=== PATIENT | male | born 1950 | race Caucasian/White ===

== ENCOUNTER 2016-11-02 14:10 | Inpatient (IN) | payer OTHER ==
[~2016-11-02] VITALS: Ht 175.3 cm; Wt 100.7 kg
[~2016-11-02 14:10] MED LIST: ASPEC325 PO; BUPR-79 PO; CLB200 PO; CYM/30 PO; LISI10TA PO; OMEP20CA9 PO; OXYSR10 PO; RXC5 PO; ZOLP10TA PO
--- NOTE | 2016-11-02 16:42 | DIAGNOSTIC IMAGING REPORT ---
CHEST ONE VIEW PORTABLE CLINICAL HISTORY: CHEST PAIN dyspnea COMPARISON STUDY: 04/20/2015 FINDINGS: The bones soft tissues and hemidiaphragms are normal. The cardiomediastinal silhouette is normal. The lungs are clear. The pulmonary vasculature is normal. IMPRESSION: Negative chest. Electronically signed by: Hema Melendrez M.D. 11/02/2016 4:41 PM Dictated Date/Time: 11/02/2016 4:41 PM
[2016-11-02 16:43] LABS: MEAN CELL VOLUME 96.6 fL (80-100); MEAN CORPUSCULAR HEMOGLOBIN 33.4 pg (25-34); MEAN CORPUSCULAR HGB CONC 34.6 g/dl (32-36); MEAN PLATELET VOLUME 9.3 fL (7.4-10.4); PLATELET COUNT 318 K/uL (130-400); RED BLOOD COUNT 3.83 M/uL (4.7-6.1); WHITE BLOOD COUNT 11.97 K/uL (4.8-10.8)
[2016-11-02 16:51] LABS: PARTIAL THROMBOPLASTIN RATIO 1.1; PROTHROMBIN TIME (PATIENT) 10.5 SECONDS (9.0-12.0)
[2016-11-02] MEDS ORDERED: LISI40TA PO (16:51)
[2016-11-02] MEDS ORDERED: CYM60 PO (16:51)
[2016-11-02] MEDS ORDERED: TPRSR/100 PO (16:51)
[2016-11-02] MEDS ORDERED: FERR1TAB13 PO (16:51)
[2016-11-02] MEDS ORDERED: ULT50 PO (16:51)
[2016-11-02] MEDS ORDERED: ASPI325T39 PO (16:51)
[2016-11-02 17:09] LABS: ALT/SGPT 32 U/L (12-78); AST/SGOT 20 U/L (15-37); BLOOD UREA NITROGEN 41 mg/dl (7-18); BUN/CREATININE RATIO 19.7 (10-20); CALCIUM 8.8 mg/dl (8.5-10.1); CARBON DIOXIDE 24 mmol/L (21-32); CHLORIDE 101 mmol/L (98-107); GLUCOSE 108 mg/dl (70-99); POTASSIUM 4.3 mmol/L (3.5-5.1); SODIUM 134 mmol/L (136-145)
--- NOTE | 2016-11-02 17:10 | EMERGENCY ROOM VISIT NOTE ---
History Report prepared by Miriam: Alize Gray Under the Supervision of: Dr. Amira Jones M.D. First contact with patient: 16:40 Chief Complaint: CHEST PAIN Stated Complaint: CHEST PAINS, DIFF. BREATHING, NAUSEA, RT SHOULDER Nursing Triage Summary: Pt reports midsternal CP intermittenly for 2 months "I have been to my PCP and have had every single test possible and they can't find anything" +SOB Pt also reports left thumb, left knee, and left neck pain Pt reports bronchitis last week History of Present Illness The patient is a 66 year old male who presents to the Emergency Room with complaints of persistent shortness of breath over the past month. He currently rates his discomfort as a 4/10 in severity. The patient states that he has been evaluated for his symptoms at [facility], reporting normal EKGs, cardiograms , and stress tests. The patient states that over the past month he has had difficulty walking up stairs and small exertion. He states that this morning he noticed left sided neck pain that now is around his entire neck. The patient reports chest pain this morning, but denies any current pain. He states that he took 1- 324 mg aspirin today. The patient denies any history of smoking. He reports a history of hypertension. The patient denies any history of diabetes, hyperlipidemia, heart disease, or a previous heart catheterization. Source of History: patient Onset: psat month Position: other (global) Symptom Intensity: 4/10 Quality: other (shortness of breath) Timing: other (persistent) Associated Symptoms: + neck pain, + chest pain Review of Systems See HPI for pertinent positives & negatives. A total of 10 systems reviewed and were otherwise negative. Past Medical & Surgical Medical Problems: (1) Elevated troponin (2) Hypertension (3) Kidney stone (4) Right knee DJD (5) Shortness of breath Family History Gallbladder disease Heart disease Hypertension Kidney disease Kidney stones Lung disease Social History Smoking Status: Never Smoker Smokeless Tobacco Use: No Alcohol Use: occasionally Marital Status: Housing Status: lives with significant other Occupation Status: disabled Current/Historical Medications Scheduled Aspirin (Aspirin Ec), 325 MG PO DAILY Bupropion (Wellbutrin Sr), 150 MG PO QAM Duloxetine HCl (Duloxetine HCl), 60 MG PO DAILY Ferrous Sulfate (Kp Ferrous Sulfate), 325 MG PO DAILY Lisinopril (Zestril), 40 MG PO DAILY Metoprolol Succinate (Metoprolol Succinate ER), 100 MG PO DAILY Omeprazole (Prilosec), 20 MG PO DAILY Zolpidem Tartrate (Ambien), 10 MG PO HS Scheduled PRN Tramadol HCl (Tramadol HCl), 100 MG PO BID PRN for Pain Allergies Coded Allergies: No Known Allergies (Unverified , 11/02/16) Physical Exam Vital Signs Date Time Temp Pulse Resp B/P (MAP) Pulse Ox O2 Delivery O2 Flow Rate FiO2 11/02/16 19:45 83 16 113/71 96 Room Air 11/02/16 18:45 37.2 96 18 116/74 98 Room Air 11/02/16 16:44 86 11/02/16 16:38 98 Room Air 11/02/16 16:04 107 16 89/59 96 Room Air 11/02/16 14:19 37.8 92 20 149/77 97 Room Air Physical Exam Vital signs reviewed. General: Well-appearing male, in no significant distress. HEENT: No scleral icterus, PERRLA, neck supple. Atraumatic. Cardiovascular: Regular rate and rhythm, no extra sounds. Pulmonary: Clear to auscultation bilaterally, normal work of breathing. Abdomen: Soft, nontender, nondistended, positive bowel sounds. Musculoskeletal: Atraumatic, no peripheral edema. Neurologic: Patient awake alert and oriented x 3, full strength in all 4 extremities. Cranial nerves 2 through 12 grossly intact. Skin: Warm, dry, no rash Medical Decision & Procedures ER Provider Diagnostic Interpretation: X-ray results as stated below per interpretation by me and the radiologist: CHEST ONE VIEW PORTABLE CLINICAL HISTORY: CHEST PAIN dyspnea COMPARISON STUDY: 04/20/2015 FINDINGS: The bones soft tissues and hemidiaphragms are normal. The cardiomediastinal silhouette is normal. The lungs are clear. The pulmonary vasculature is normal. IMPRESSION: Negative chest. Electronically signed by: Hema Melendrez M.D. 11/02/2016 4:41 PM Dictated Date/Time: 11/02/2016 4:41 PM C-SPINE ROUTINE 4 OR 5 VIEWS CLINICAL HISTORY: Cervical radiculopathy COMPARISON STUDY: No previous studies for comparison. FINDINGS: These images demonstrate a C6 corpectomy and C5-C7 anterior fusion. Alignment is anatomic. No acute fracture or suspicious lesion is identified by radiography. There is moderate disc space narrowing with osteophytosis at C4-C5. There is moderate multilevel facet arthrosis. Prevertebral soft tissues are unremarkable. IMPRESSION: 1. No acute fracture. 2. Status post C6 corpectomy and C5-C7 anterior fusion. 3. Moderate disc space narrowing at C4-C5 with moderate multilevel facet arthrosis. Electronically signed by: Noel Mir M.D. 11/02/2016 9:37 PM Dictated Date/Time: 11/02/2016 6:09 PM Laboratory Results Test 11/02/16 16:30 11/02/16 16:42 D-Dimer 730 ug/L FEU (0-500) Total Bilirubin 0.7 mg/dl (0.2-1) Aspartate Amino Transf (AST/SGOT) 20 U/L (15-37) Alanine Aminotransferase (ALT/SGPT) 32 U/L (12-78) Alkaline Phosphatase 104 U/L (45-117) Total Protein 8.0 gm/dl (6.4-8.2) Albumin 3.9 gm/dl (3.4-5.0) Globulin 4.1 gm/dl (2.5-4.0) Albumin/Globulin Ratio 1.0 (0.9-2) Lyme Disease IgG Antibody NEG (NEG) Lyme Disease IgM Antibody NEG (NEG) Bedside Troponin I 0.220 ng/ml (0-0.045) Laboratory results per my review. Medications Administered Medications (Trade) Dose Ordered Sig/Jamie Route Start Time Stop Time Status Last Admin Dose Admin Nitroglycerin (Nitrostat Tab) 0.4 mg Q5M PRN SL 11/02/16 17:15 11/03/16 11:30 DC 11/02/16 18:54 0.4 MG Sodium Chloride 250 ml @ 999 mls/hr Q16M STAT IV 11/02/16 18:20 11/02/16 18:35 DC 11/02/16 18:20 999 MLS/HR Sodium Chloride 1,000 ml @ 125 mls/hr Q8H STAT IV 11/02/16 18:20 11/02/16 21:57 DC 11/02/16 18:54 125 MLS/HR Heparin Sodium (Porcine) (Heparin Iv Bolus) 4,000 unit NOW STAT IV 11/02/16 18:38 11/02/16 18:39 DC 11/02/16 19:23 4,000 UNIT Heparin Sodium/ Dextrose 500 ml @ 20 mls/hr Q24H PRN IV 11/02/16 18:45 11/02/16 21:57 DC 11/02/16 19:25 20 MLS/HR Tramadol HCl (Ultram Tab) 100 mg BID PRN PO 11/02/16 20:15 12/02/16 20:14 11/02/16 22:07 100 MG Acetaminophen 100 ml @ 400 mls/hr Q8H PRN IV 11/02/16 20:15 12/02/16 20:14 11/04/16 17:43 400 MLS/HR ECG Indication: chest pain, SOB/dyspnea Rate (beats per minute): 94 Rhythm: normal sinus Findings: no acute ischemic change, no ectopy ED Course 1657: Past medical records reviewed. The patient was evaluated in room C5. A complete history and physical examination was performed. 171: Ordered Nitroglycerin 0.4 mg SL. 1819: Ordered Heparin Sodium Dextrose 1 ea NA, Sodium Chloride 1000 ml @ 125 mls /hr IV, Sodium Chloride 250 ml @ 999 mls/hr IV. 1838: Ordered heparin IV Bolus 4000 unit IV. 1845: I reevaluated the patient and he is doing well. I discussed the exam findings with him and I discussed the treatment plan. He verbalized complete understanding and agreement. He is going to be evaluated for further treatment. Ordered Heparin Sodium/Dextrose 500 ml @ 20 mls/hr IV. 1945: I discussed the patients case with Dr. Rios [facility]. He is going to evaluate the patient for further treatment. Medical Decision Differential diagnoses includes acute coronary syndrome, pulmonary embolus, aortic dissection, musculoskeletal pain, pneumonia, pleural effusion, pneumothorax, gastritis, peptic ulcer disease. Medication Reconciliation: I attest that I have personally reviewed the patient' s current medication list. Blood Pressure Screening: Patient was found to have normal blood pressure on screening and does not require follow-up. This patient was evaluated and appeared to be in no significant distress. IV access was obtained and laboratory work was drawn. The patient was given a nitroglycerin trial for his continued mild discomfort. He had taken aspirin 325 mg. Chest x-ray was obtained and reveals no significant pathology. Cervical spine x-ray reveals degenerative and postsurgical changes. Patient's laboratory work indicates an elevated troponin of 0.22. He does have risk factors for coronary disease. The patient will be evaluated by the hospitalist service. He was placed on a heparin drip. He will return to the ER for worsening of symptoms or any medical concerns. Consults Time Called: 1834 Consulting Physician: ROSE Gutierrez Returned Call: 1945 I discussed the patients case with ROSE Gutierrez. He is going to evaluate the patient for further treatment. Impression Primary Impression: Acute coronary syndrome Scribe Attestation The scribe's documentation has been prepared under my direction and personally reviewed by me in its entirety. I confirm that the note above accurately reflects all work, treatment, procedures, and medical decision making performed by me. Departure Information Dispostion Being Evaluated By Hospitalist Referrals Jerrica Nguyen PA-C (PCP)
[2016-11-02 17:14] LABS: ALKALINE PHOSPHATASE 104 U/L (45-117); CKMB/CK RATIO 1.1 (0-3.0)
[2016-11-02] MEDS ORDERED: NITROGLYCERIN 0.4 MG SL PER TAB CHARGE SL PRN (17:15)
[2016-11-02] MEDS ORDERED: SODIUM CHLORIDE 0.9% 1000ML 1,000 ML IV STA (18:20)
[2016-11-02] MEDS ORDERED: SODIUM CHLORIDE 0.9% 250ML 250 ML IV STA (18:20)
[2016-11-02] MEDS ORDERED: HEPARIN SOD (PORCINE) 1000 UNIT/ML 10 ML VIAL IV STA (18:38)
[2016-11-02] MEDS ORDERED: HEPARIN 25,000 UNIT/500ML D5W 500 ML IV PRN (18:45)
[2016-11-02] MEDS ORDERED: ONDANSETRON INJ 2 MG/ML 2 ML VIAL IV PRN (20:15)
[2016-11-02] MEDS ORDERED: ACETAMINOPHEN 325 MG TAB PO PRN (20:15)
[2016-11-02] MEDS ORDERED: ZOLPIDEM TARTRATE 5 MG TAB PO PRN (20:15)
[2016-11-02 21:03] LABS: LYME DISEASE AB IGG NEG (NEG); LYME DISEASE AB IGM NEG (NEG)
--- NOTE | 2016-11-02 21:14 | DIAGNOSTIC IMAGING REPORT ---
SINUS CT WITHOUT CONTRAST CLINICAL HISTORY: Difficulty breathing. Include left mastoids. COMPARISON STUDY: None. Technique: Helical axial images of the sinuses were obtained without IV contrast. Coronal reformats were viewed. CT DOSE: 593.39 mGy.cm FINDINGS: Visualized portions of the intracranial contents are unremarkable on this unenhanced exam. Orbits are within normal limits. Mastoid air cells are clear. There is mild leftward deviation of the nasal septum with spur formation. There is no mass or bony destruction within the sinuses or the nasal cavity. The major drainage pathways of the sinuses are clear. There are no air-fluid levels. The sinuses are essentially clear with minimal ethmoid sinus mucosal thickening. There is no fluid within the middle ears. Ossicles are intact. IMPRESSION: 1. Clear sinuses with patent major drainage pathways. 2. No significant fluid within mastoid air cells. Electronically signed by: Noel Mir M.D. 11/02/2016 9:13 PM Dictated Date/Time: 11/02/2016 9:09 PM
--- NOTE | 2016-11-02 21:38 | DIAGNOSTIC IMAGING REPORT ---
C-SPINE ROUTINE 4 OR 5 VIEWS CLINICAL HISTORY: Cervical radiculopathy COMPARISON STUDY: No previous studies for comparison. FINDINGS: These images demonstrate a C6 corpectomy and C5-C7 anterior fusion. Alignment is anatomic. No acute fracture or suspicious lesion is identified by radiography. There is moderate disc space narrowing with osteophytosis at C4-C5. There is moderate multilevel facet arthrosis. Prevertebral soft tissues are unremarkable. IMPRESSION: 1. No acute fracture. 2. Status post C6 corpectomy and C5-C7 anterior fusion. 3. Moderate disc space narrowing at C4-C5 with moderate multilevel facet arthrosis. Electronically signed by: Noel Mir M.D. 11/02/2016 9:37 PM Dictated Date/Time: 11/02/2016 6:09 PM
--- NOTE | 2016-11-02 21:54 | DIAGNOSTIC IMAGING REPORT ---
BILATERAL LOWER EXTREMITY VENOUS DOPPLER CLINICAL HISTORY: Chest pain and difficulty breathing. Evaluate for deep venous thrombosis. COMPARISON STUDY: No previous studies for comparison. TECHNIQUE: Sonography of the deep venous system of the bilateral lower extremities was performed. Compression and augmentation were evaluated. FINDINGS: The bilateral common femoral, superficial femoral and popliteal veins were compressible. Augmentation was normal. Flow was shown within the deep calf vessels. There was a 4.8 x 2.2 x 1.9 cm mildly complex left popliteal cyst. IMPRESSION: 1. No evidence of deep venous thrombus within the bilateral lower extremities. 2. 4.8 x 2.2 x 1.9 cm left popliteal cyst. Electronically signed by: Noel Mir M.D. 11/02/2016 9:53 PM Dictated Date/Time: 11/02/2016 9:50 PM
[2016-11-02] MEDS: TRAMADOL HCL 50 MG TAB PO PRN (22:07)
[2016-11-02 22:20] VITALS: BP 131/76; PULSE 88; TEMP 37; O2SAT 96; Ht 175.3 cm; Wt 100.7 kg
[2016-11-02 23:02] LABS: CKMB/CK RATIO 0.7 (0-3.0)
[2016-11-02 23:36] VITALS: BP 108/69; PULSE 84; TEMP 37.3; O2SAT 95
[2016-11-02] MEDS: ZOLPIDEM TARTRATE 10 MG TAB PO SCH (23:44)
[2016-11-02] MEDS: ACETAMINOPHEN IV 100 ML IV PRN (23:45)
[2016-11-03] VITALS (8 sets, daily range): BP systolic 86–119; BP diastolic 49–72; PULSE 74–78; TEMP 36.5–36.8; O2SAT 95–98
[2016-11-03] MEDS: SODIUM CHLORIDE 0.9% 1000ML 1,000 ML IV SCH ×3 (01:22→18:40)
[2016-11-03 01:54] LABS: PARTIAL THROMBOPLASTIN RATIO 1.2
[2016-11-03 04:09] LABS: BASO % 0.3 %; BASO ABS # 0.02 K/uL (0-0.2); COMPLETE YES; EOS % 1.5 %; HEMATOCRIT 31.6 % (42-52); IG% 0.3 %; LYMPH % 22.4 %; MEAN CELL VOLUME 96.9 fL (80-100); MEAN CORPUSCULAR HEMOGLOBIN 32.8 pg (25-34); MEAN CORPUSCULAR HGB CONC 33.9 g/dl (32-36); MEAN PLATELET VOLUME 8.8 fL (7.4-10.4); MONO % 13.9 %; NEUT % 61.6 %; PLATELET COUNT 202 K/uL (130-400); RED BLOOD COUNT 3.26 M/uL (4.7-6.1); WHITE BLOOD COUNT 6.71 K/uL (4.8-10.8)
[2016-11-03 04:21] LABS: PARTIAL THROMBOPLASTIN RATIO 1.2; PROTHROMBIN TIME (PATIENT) 10.9 SECONDS (9.0-12.0)
[2016-11-03 04:27] LABS: BLOOD UREA NITROGEN 35 mg/dl (7-18); BUN/CREATININE RATIO 23.3 (10-20); CARBON DIOXIDE 23 mmol/L (21-32); CHLORIDE 107 mmol/L (98-107); GLUCOSE 98 mg/dl (70-99); MAGNESIUM 2.5 mg/dl (1.8-2.4); SODIUM 139 mmol/L (136-145)
--- NOTE | 2016-11-03 04:44 | History and Physical ---
History & Physical Date & Time of Service: Nov 03, 2016 at 04:32. The patient was examined on 11/02/2016 Chief Complaint: Elevated Troponin, Sob Primary Care Physician: Jerrica Nguyen PA-C History of Present Illness Source: patient The patient is a 66-year-old male who presented to the emergency department with persistent shortness of breath over the previous month, to the point he has difficulty walking up stairs. When he awoke this morning, he noted left- sided neck pain and pain into his left thumb. He has not had any unusual physical stresses to explain the symptoms. He is generally fatigued. Past Medical/Surgical History Medical Problems: (1) Hypertension Status: Chronic (2) Kidney stone Status: Resolved Family History Gallbladder disease Heart disease Hypertension Kidney disease Kidney stones Lung disease Social History Smoking Status: Never Smoker Smokeless Tobacco Use: No Alcohol Use: none Drug Use: none Marital Status: Housing status: lives with family Occupational Status: disabled Multi-Drug Resistant Organisms History of MDRO: No Allergies Coded Allergies: No Known Allergies (Unverified , 11/02/16) Home Medications Scheduled Aspirin (Aspirin Ec), 325 MG PO DAILY Bupropion (Wellbutrin Sr), 150 MG PO QAM Duloxetine HCl (Duloxetine HCl), 60 MG PO DAILY Ferrous Sulfate (Kp Ferrous Sulfate), 325 MG PO DAILY Lisinopril (Zestril), 40 MG PO DAILY Metoprolol Succinate (Metoprolol Succinate ER), 100 MG PO DAILY Omeprazole (Prilosec), 20 MG PO DAILY Zolpidem Tartrate (Ambien), 10 MG PO HS Scheduled PRN Tramadol HCl (Tramadol HCl), 100 MG PO BID PRN for Pain Review of Systems The patient denies chest pain, palpitations, cough, lower extremity swelling, sore throat, fevers, chills, sweats, weight change, nausea, vomiting, abdominal pain, pelvic pain, blood in urine or stool, dysuria, urinary frequency or urgency, lightheadedness, dizziness, headache, memory loss, rash, abnormal bruising or bleeding, imbalance, focal weakness, numbness or tingling in legs, night sweats, or allergy symptoms. The review of systems is otherwise negative other than for that already noted above, and at least 10 systems have been reviewed. Physical Exam Vital Signs Date Time Temp Pulse Resp B/P (MAP) Pulse Ox O2 Delivery O2 Flow Rate FiO2 11/03/16 04:00 36.5 74 18 94/60 (71) 98 Room Air 11/03/16 00:00 95 Room Air 11/02/16 23:36 37.3 84 18 108/69 (82) 95 Room Air 11/02/16 22:20 37.0 88 20 131/76 96 Room Air 11/02/16 20:56 76 18 120/67 98 11/02/16 19:45 83 16 113/71 96 Room Air 11/02/16 18:45 37.2 96 18 116/74 98 Room Air 11/02/16 16:44 86 11/02/16 16:38 98 Room Air 11/02/16 16:04 107 16 89/59 96 Room Air 11/02/16 14:19 37.8 92 20 149/77 97 Room Air The patient is awake, well-developed and adequately nourished, alert and oriented 3, normocephalic and atraumatic, lying in bed and in no acute distress unless he turns his head to the left. HEENT--PERRL, EOMI, mucous membranes and oropharynx normal. Neck--reproducible pain over left mastoid and posterior cervical, no JVD or bruits, thyroid normal, trachea midline, no adenopathy. Heart--normal S1 and S2, no extra beats, no murmurs, rubs or gallops. Lungs--clear bilaterally but diminished throughout, no respiratory distress, no accessory muscle use. Abdomen--normal bowel sounds and soft, nontender and nondistended, no hernias or masses, no organomegaly. Extremities--no cyanosis, clubbing or edema. There are good distal pulses b/l. Dermatologic--normal skin turgor, normal color, warm and dry, no abnormal lymph nodes, no rash. Neurologic--cranial nerves II through XII grossly intact, motor and sensory examination normal. Rheumatologic--normal range of motion, nontender, muscles and joints. Psychiatric--normal affect. Diagnostics Laboratory Results Results Past 24 Hours Test 11/02/16 16:30 11/02/16 16:42 11/02/16 22:30 11/03/16 01:29 Range/Units White Blood Count 11.97 4.8-10.8 K/uL Red Blood Count 3.83 4.7-6.1 M/uL Hemoglobin 12.8 14.0-18.0 g/dL Hematocrit 37.0 42-52 % Mean Corpuscular Volume 96.6 80-100 fL Mean Corpuscular Hemoglobin 33.4 25-34 pg Mean Corpuscular Hemoglobin Concent 34.6 32-36 g/dl RDW Standard Deviation 45.1 36.4-46.3 fL RDW Coefficient of Variation 13.0 11.5-14.5 % Platelet Count 318 130-400 K/uL Mean Platelet Volume 9.3 7.4-10.4 fL Prothrombin Time 10.5 9.0-12.0 SECONDS Prothromb Time International Ratio 1.0 0.9-1.1 Activated Partial Thromboplast Time 28.2 30.3 21.0-31.0 SECONDS Partial Thromboplastin Ratio 1.1 1.2 D-Dimer 730 0-500 ug/L FEU Sodium Level 134 136-145 mmol/L Potassium Level 4.3 3.5-5.1 mmol/L Chloride Level 101 98-107 mmol/L Carbon Dioxide Level 24 21-32 mmol/L Anion Gap 9.0 3-11 mmol/L Blood Urea Nitrogen 41 7-18 mg/dl Creatinine 2.10 0.60-1.40 mg/dl Estimated GFR () 37.4 Estimated GFR (Non- 32.3 BUN/Creatinine Ratio 19.7 10-20 Random Glucose 108 70-99 mg/dl Calcium Level 8.8 8.5-10.1 mg/dl Total Bilirubin 0.7 0.2-1 mg/dl Aspartate Amino Transf (AST/SGOT) 20 15-37 U/L Alanine Aminotransferase (ALT/SGPT) 32 12-78 U/L Alkaline Phosphatase 104 45-117 U/L Total Creatine Kinase 95 82 39-308 U/L Creatine Kinase MB 1.0 0.6 0.5-3.6 ng/ml Creatine Kinase MB Ratio 1.1 0.7 0-3.0 Total Protein 8.0 6.4-8.2 gm/dl Albumin 3.9 3.4-5.0 gm/dl Globulin 4.1 2.5-4.0 gm/dl Albumin/Globulin Ratio 1.0 0.9-2 Lyme Disease IgG Antibody NEG NEG Lyme Disease IgM Antibody NEG NEG Bedside Troponin I 0.220 0-0.045 ng/ml Troponin I < 0.015 0-0.045 ng/ml Hepatitis C Antibody Screen NEG NEG Test 11/03/16 04:00 Range/Units White Blood Count 6.71 4.8-10.8 K/uL Red Blood Count 3.26 4.7-6.1 M/uL Hemoglobin 10.7 14.0-18.0 g/dL Hematocrit 31.6 42-52 % Mean Corpuscular Volume 96.9 80-100 fL Mean Corpuscular Hemoglobin 32.8 25-34 pg Mean Corpuscular Hemoglobin Concent 33.9 32-36 g/dl Platelet Count 202 130-400 K/uL Mean Platelet Volume 8.8 7.4-10.4 fL Neutrophils (%) (Auto) 61.6 % Lymphocytes (%) (Auto) 22.4 % Monocytes (%) (Auto) 13.9 % Eosinophils (%) (Auto) 1.5 % Basophils (%) (Auto) 0.3 % Neutrophils # (Auto) 4.14 1.4-6.5 K/uL Lymphocytes # (Auto) 1.50 1.2-3.4 K/uL Monocytes # (Auto) 0.93 0.11-0.59 K/uL Eosinophils # (Auto) 0.10 0-0.5 K/uL Basophils # (Auto) 0.02 0-0.2 K/uL RDW Standard Deviation 45.4 36.4-46.3 fL RDW Coefficient of Variation 13.0 11.5-14.5 % Immature Granulocyte % (Auto) 0.3 % Immature Granulocyte # (Auto) 0.02 0.00-0.02 K/uL Prothrombin Time 10.9 9.0-12.0 SECONDS Prothromb Time International Ratio 1.0 0.9-1.1 Activated Partial Thromboplast Time 30.8 21.0-31.0 SECONDS Partial Thromboplastin Ratio 1.2 Sodium Level 139 136-145 mmol/L Potassium Level 4.0 3.5-5.1 mmol/L Chloride Level 107 98-107 mmol/L Carbon Dioxide Level 23 21-32 mmol/L Anion Gap 9.0 3-11 mmol/L Blood Urea Nitrogen 35 7-18 mg/dl Creatinine 1.50 0.60-1.40 mg/dl Est Creatinine Clear Calc Drug Dose 57.5 ml/min Estimated GFR () 56.2 Estimated GFR (Non- 48.5 BUN/Creatinine Ratio 23.3 10-20 Random Glucose 98 70-99 mg/dl Calcium Level 8.1 8.5-10.1 mg/dl Magnesium Level 2.5 1.8-2.4 mg/dl Total Creatine Kinase 60 39-308 U/L Creatine Kinase MB 0.6 0.5-3.6 ng/ml Creatine Kinase MB Ratio 1.0 0-3.0 Troponin I < 0.015 0-0.045 ng/ml Diagnostic Radiology Patient Name: CHRISSIE BARROSO Unit Number: [id number] Dictated: 11/02/161640 Transcribed: 11/02/161640 MS Printed Date/Time: [~ rep prt dt]/[~ rep prt tm] [~ rep ct labl] - [~ rep ct ivnm] [facility] [place] [place] [address] Dictated: 11/02/161640 Transcribed: 11/02/161640 MS Printed Date/Time: [~ rep prt dt]/[~ rep prt tm] [~ rep ct labl] - [~ rep ct ivnm] CHEST ONE VIEW PORTABLE CLINICAL HISTORY: CHEST PAIN dyspnea COMPARISON STUDY: 04/20/2015 FINDINGS: The bones soft tissues and hemidiaphragms are normal. The cardiomediastinal silhouette is normal. The lungs are clear. The pulmonary vasculature is normal. IMPRESSION: Negative chest. Electronically signed by: Hema Melendrez M.D. 11/02/2016 4:41 PM Dictated Date/Time: 11/02/2016 4:41 PM The status of this report is Signed. Draft = Not yet reviewed or approved by Radiologist. Signed = Reviewed and approved by Radiologist. <AttendingPhy></AttendingPhy> <FamilyPhy>Jerrica Nguyen PA-C</FamilyPhy> < PrimaryPhy>Jerrica Nguyen PA-C</PrimaryPhy> <UnitNumber>[id number]</UnitNumber> < VisitNumber>[id number]</VisitNumber> <PatientName>CHRISSIE BARROSO</PatientName> <DateOfBirth>1950</DateOfBirth> <Location>C.EDC</Location> <ServiceDate></ServiceDate> <MNE>ESINDI</MNE> <OrderingPhy>ED, PROTOCOL</OrderingPhy> < OrderingPhyMNE>f rep ord dr gould</OrderingPhyMNE> <DictatingPhyMNE>f rep dict dr gould</DictatingPhyMNE> <CCListMNE>f rep ct mne</CCListMNE> <AdmittingPhyMNE>f pt admit dr gould</AdmittingPhyMNE> <AttendingPhyMNE>f pt attend dr gould</ AttendingPhyMNE> <ConsultingPhyMNE>f pt consult dr gould</ConsultingPhyMNE> <FamilyPhyMNE>f pt fam dr gould</FamilyPhyMNE> <OtherPhyMNE>f pt other dr gould</OtherPhyMNE> < PrimaryPhyMNE>f pt prim care dr gould</PrimaryPhyMNE> <ReferringPhyMNE>f pt referring dr gould</ReferringPhyMNE> Patient Name: CHRISSIE BARROSO Unit Number: [id number] Dictated: 11/02/161808 Transcribed: 11/02/161811 Printed Date/Time: [~ rep prt dt]/[~ rep prt tm] [~ rep ct labl] - [~ rep ct ivnm] [facility] [place] [place] [address] Dictated: 11/02/161808 Transcribed: 11/02/161811 Printed Date/Time: [~ rep prt dt]/[~ rep prt tm] [~ rep ct labl] - [~ rep ct ivnm] [~ rep ct add3]] C-SPINE ROUTINE 4 OR 5 VIEWS CLINICAL HISTORY: Cervical radiculopathy COMPARISON STUDY: No previous studies for comparison. FINDINGS: These images demonstrate a C6 corpectomy and C5-C7 anterior fusion. Alignment is anatomic. No acute fracture or suspicious lesion is identified by radiography. There is moderate disc space narrowing with osteophytosis at C4-C5. There is moderate multilevel facet arthrosis. Prevertebral soft tissues are unremarkable. IMPRESSION: 1. No acute fracture. 2. Status post C6 corpectomy and C5-C7 anterior fusion. 3. Moderate disc space narrowing at C4-C5 with moderate multilevel facet arthrosis. Electronically signed by: Noel Mir M.D. 11/02/2016 9:37 PM Dictated Date/Time: 11/02/2016 6:09 PM The status of this report is Signed. Draft = Not yet reviewed or approved by Radiologist. Signed = Reviewed and approved by Radiologist. <AttendingPhy></AttendingPhy> <FamilyPhy>Jerrica Nguyen PA-C</FamilyPhy> < PrimaryPhy>Jerrica Nguyen PA-C</PrimaryPhy> <UnitNumber>[id number]</UnitNumber> < VisitNumber>[id number]</VisitNumber> <PatientName>CHRISSIE BARROSO</PatientName> <DateOfBirth>1950</DateOfBirth> <Location>C.EDC</Location> <ServiceDate></ServiceDate> <MNE>ESINDI</MNE> <OrderingPhy>Amira Jones M.D.</ OrderingPhy> <OrderingPhyMNE>f rep ord dr gould</OrderingPhyMNE> <DictatingPhyMNE> f rep dict dr gould</DictatingPhyMNE> <CCListMNE>f rep ct mne</CCListMNE> < AdmittingPhyMNE>f pt admit dr gould</AdmittingPhyMNE> <AttendingPhyMNE>f pt attend dr gould</AttendingPhyMNE> <ConsultingPhyMNE>f pt consult dr gould</ConsultingPhyMNE> <FamilyPhyMNE>f pt fam dr gould</FamilyPhyMNE> <OtherPhyMNE>f pt other dr gould</OtherPhyMNE> < PrimaryPhyMNE>f pt prim care dr gould</PrimaryPhyMNE> <ReferringPhyMNE>f pt referring dr gould</ReferringPhyMNE> Patient Name: CHRISSIE BARROSO Unit Number: [id number] Dictated: 11/02/162149 Transcribed: 11/02/162149 JA Printed Date/Time: [~ rep prt dt]/[~ rep prt tm] [~ rep ct labl] - [~ rep ct ivnm] [facility] [place] [address] Dictated: 11/02/162149 Transcribed: 11/02/162149 Printed Date/Time: [~ rep prt dt]/[~ rep prt tm] [~ rep ct labl] - [~ rep ct ivnm] [~ rep ct add3]] BILATERAL LOWER EXTREMITY VENOUS DOPPLER CLINICAL HISTORY: Chest pain and difficulty breathing. Evaluate for deep venous thrombosis. COMPARISON STUDY: No previous studies for comparison. TECHNIQUE: Sonography of the deep venous system of the bilateral lower extremities was performed. Compression and augmentation were evaluated. FINDINGS: The bilateral common femoral, superficial femoral and popliteal veins were compressible. Augmentation was normal. Flow was shown within the deep calf vessels. There was a 4.8 x 2.2 x 1.9 cm mildly complex left popliteal cyst. IMPRESSION: 1. No evidence of deep venous thrombus within the bilateral lower extremities. 2. 4.8 x 2.2 x 1.9 cm left popliteal cyst. Electronically signed by: Noel Mir M.D. 11/02/2016 9:53 PM Dictated Date/Time: 11/02/2016 9:50 PM The status of this report is Signed. Draft = Not yet reviewed or approved by Radiologist. Signed = Reviewed and approved by Radiologist. <AttendingPhy>Beck Rios M.D.</AttendingPhy> <FamilyPhy>Jerrica Nguyen PA-C</FamilyPhy> <PrimaryPhy>Jerrica Nguyen PA-C</PrimaryPhy> <UnitNumber> [id number]</UnitNumber> <VisitNumber>[id number]</VisitNumber> <PatientName> DHARMESHCHRISSIE</PatientName> <DateOfBirth>1950</DateOfBirth> <Location>C.2E </Location> <ServiceDate>11/02/16</ServiceDate> <MNE>ESINDI</MNE> <OrderingPhy> Amira Jones M.D.</OrderingPhy> <OrderingPhyMNE>f rep ord dr gould</ OrderingPhyMNE> <DictatingPhyMNE>f rep dict dr gould</DictatingPhyMNE> <CCListMNE> f rep ct mne</CCListMNE> <AdmittingPhyMNE>f pt admit dr gould</AdmittingPhyMNE> < AttendingPhyMNE>f pt attend dr gould</AttendingPhyMNE> <ConsultingPhyMNE>f pt consult dr gould</ConsultingPhyMNE> <FamilyPhyMNE>f pt fam dr gould</FamilyPhyMNE> <OtherPhyMNE>f pt other dr gould</OtherPhyMNE> < PrimaryPhyMNE>f pt prim care dr gould</PrimaryPhyMNE> <ReferringPhyMNE>f pt referring dr gould</ReferringPhyMNE> Patient Name: CHRISSIE BARROSO Unit Number: [id number] Dictated: 11/02/162108 Transcribed: 11/02/162108 BRITNEY Printed Date/Time: [~ rep prt dt]/[~ rep prt tm] [~ rep ct labl] - [~ rep ct ivnm] [facility] Radiology Department [place] [id number] Dictated: 11/02/162108 Transcribed: 11/02/162108 JA Printed Date/Time: [~ rep prt dt]/[~ rep prt tm] [~ rep ct labl] - [~ rep ct ivnm] [~ rep ct add3]] SINUS CT WITHOUT CONTRAST CLINICAL HISTORY: Difficulty breathing. Include left mastoids. COMPARISON STUDY: None. Technique: Helical axial images of the sinuses were obtained without IV contrast. Coronal reformats were viewed. CT DOSE: 593.39 mGy.cm FINDINGS: Visualized portions of the intracranial contents are unremarkable on this unenhanced exam. Orbits are within normal limits. Mastoid air cells are clear. There is mild leftward deviation of the nasal septum with spur formation. There is no mass or bony destruction within the sinuses or the nasal cavity. The major drainage pathways of the sinuses are clear. There are no air-fluid levels. The sinuses are essentially clear with minimal ethmoid sinus mucosal thickening. There is no fluid within the middle ears. Ossicles are intact. IMPRESSION: 1. Clear sinuses with patent major drainage pathways. 2. No significant fluid within mastoid air cells. Electronically signed by: Noel Mir M.D. 11/02/2016 9:13 PM Dictated Date/Time: 11/02/2016 9:09 PM The status of this report is Signed. Draft = Not yet reviewed or approved by Radiologist. Signed = Reviewed and approved by Radiologist. <AttendingPhy></AttendingPhy> <FamilyPhy>Jerrica Nguyen PA-C</FamilyPhy> < PrimaryPhy>Jerrica Nguyen PA-C</PrimaryPhy> <UnitNumber>[id number]</UnitNumber> < VisitNumber>[id number]</VisitNumber> <PatientName>KYLAHLOTTIEGREGORIOCHRISSIE</PatientName> <DateOfBirth>1950</DateOfBirth> <Location>C.EDC</Location> <ServiceDate></ServiceDate> <MNE>ESINDI</MNE> <OrderingPhy>Beck Rios M.D.</ OrderingPhy> <OrderingPhyMNE>f rep ord dr gould</OrderingPhyMNE> <DictatingPhyMNE> f rep dict dr gould</DictatingPhyMNE> <CCListMNE>f rep ct l[facility]</CCListMNE> < AdmittingPhyMNE>f pt admit dr gould</AdmittingPhyMNE> <AttendingPhyMNE>f pt attend dr gould</AttendingPhyMNE> <ConsultingPhyMNE>f pt consult dr gould</ConsultingPhyMNE> <FamilyPhyMNE>f pt fam dr gould</FamilyPhyMNE> <OtherPhyMNE>f pt other dr gould</OtherPhyMNE> < PrimaryPhyMNE>f pt prim care dr gould</PrimaryPhyMNE> <ReferringPhyMNE>f pt referring dr gould</ReferringPhyMNE> EKG EKG shows normal sinus rhythm at 94 bpm, with no change compared to 09/23/2003 Impression Assessment and Plan Shortness of breath for 1 month--patient did have venous Dopplers done which were negative for DVT but did show a left popliteal cyst. Due to a creatinine 2.1, CT angiography could not be performed, so VQ scan has been ordered for the morning. The patient had already been started on heparin drip by emergency department, and this will be continued per protocol. Elevated troponin/hypertension/shortness of breath--patient be admitted to the telemetry unit for serial cardiac enzymes, cardiac rhythm monitoring and a 2-D echocardiogram with Dopplers. We'll continue metoprolol succinate ER 100 mg by mouth daily, and enteric-coated aspirin 325 mg by mouth daily. We'll hold lisinopril 40 mg by mouth daily. Left-sided neck pain--patient did have x-rays cervical spine which showed C 6 corpectomy, and C5 to 7 anterior fusion, and C4 5 degenerative disc disease with multilevel facet arthropathy. A follow-up CT scan of cervical spine is been ordered. CT scan of sinuses is negative for any mastoid process involvement. Renal insufficiency--hold lisinopril 40 mg by mouth daily, and hydrate with normal saline. Repeat laboratories in the a.m. Depression--continue Wellbutrin SR 150 mg by mouth every morning and duloxetine 60 mg by mouth daily. GERD--change omeprazole 20 mg by mouth daily to pantoprazole 40 mg by mouth daily. Insomnia--continue Ambien 10 mg by mouth at bedtime. Level of Care Telemetry Advanced Directives Existing Advance Directive: No Existing Living Will: No Existing Power of Offset Platemaker: No Resuscitation Status FULL RESUSCITATION VTE Prophylaxis VTE Risk Assessment Done? Y/N: Yes Risk Level: Low Given or contraindicated: Other Anticoagulation (heparin drip)
--- NOTE | 2016-11-03 08:20 | Progress Note ---
Subjective Date of Service: Nov 03, 2016. Subjective this pt gives a reliable history of predictable ARELLANO with no history of smoking, he has a negative stress test on the chart from [facility] and claims to have had out pt spirometry that was 'normal" he has negative CTA here but states he still feels arellano. He concurrently has radicular neck pain with a previous repaired cervical spine. Workup to this point does not reveal an abnormality to explain ARELLANO Problem List Medical Problems: (1) Acute coronary syndrome Status: Acute Review of Systems Constitutional: No fever, No chills Respiratory: + dyspnea on exertion, No cough, No sputum, No shortness of breath Cardiac: No chest pain, No orthopnea, No PND, No edema Abdomen: No pain, No nausea, No vomiting, No diarrhea Male : No dysuria, No urinary frequency Psychiatric: No depression symptoms, No anhedonism Objective Vital Signs Date Time Temp Pulse Resp B/P (MAP) Pulse Ox O2 Delivery O2 Flow Rate FiO2 11/03/16 07:53 36.8 76 18 119/72 (88) 96 11/03/16 04:00 98 Room Air 11/03/16 04:00 36.5 74 18 94/60 (71) 98 Room Air 11/03/16 00:00 95 Room Air 11/02/16 23:36 37.3 84 18 108/69 (82) 95 Room Air 11/02/16 22:20 37.0 88 20 131/76 96 Room Air 11/02/16 20:56 76 18 120/67 98 11/02/16 19:45 83 16 113/71 96 Room Air 11/02/16 18:45 37.2 96 18 116/74 98 Room Air 11/02/16 16:44 86 11/02/16 16:38 98 Room Air 11/02/16 16:04 107 16 89/59 96 Room Air 11/02/16 14:19 37.8 92 20 149/77 97 Room Air Physical Exam General Appearance: WD/WN, + mild distress ENT: hearing grossly normal, pharynx normal Neck: supple, no adenopathy, no JVD, trachea midline Respiratory/Chest: chest non-tender, lungs clear, normal breath sounds Cardiovascular: regular rate, rhythm, no murmur Abdomen: normal bowel sounds, non tender, soft Extremities: no pedal edema, no calf tenderness Neurologic/Psychiatric: alert, oriented x 3 Laboratory Results Last 24 Hours Test 11/02/16 16:30 11/02/16 16:42 11/02/16 22:30 11/03/16 01:29 White Blood Count 11.97 K/uL Red Blood Count 3.83 M/uL Hemoglobin 12.8 g/dL Hematocrit 37.0 % Mean Corpuscular Volume 96.6 fL Mean Corpuscular Hemoglobin 33.4 pg Mean Corpuscular Hemoglobin Concent 34.6 g/dl RDW Standard Deviation 45.1 fL RDW Coefficient of Variation 13.0 % Platelet Count 318 K/uL Mean Platelet Volume 9.3 fL Prothrombin Time 10.5 SECONDS Prothromb Time International Ratio 1.0 Activated Partial Thromboplast Time 28.2 SECONDS 30.3 SECONDS Partial Thromboplastin Ratio 1.1 1.2 D-Dimer 730 ug/L FEU Sodium Level 134 mmol/L Potassium Level 4.3 mmol/L Chloride Level 101 mmol/L Carbon Dioxide Level 24 mmol/L Anion Gap 9.0 mmol/L Blood Urea Nitrogen 41 mg/dl Creatinine 2.10 mg/dl Estimated GFR () 37.4 Estimated GFR (Non- 32.3 BUN/Creatinine Ratio 19.7 Random Glucose 108 mg/dl Calcium Level 8.8 mg/dl Total Bilirubin 0.7 mg/dl Aspartate Amino Transf (AST/SGOT) 20 U/L Alanine Aminotransferase (ALT/SGPT) 32 U/L Alkaline Phosphatase 104 U/L Total Creatine Kinase 95 U/L 82 U/L Creatine Kinase MB 1.0 ng/ml 0.6 ng/ml Creatine Kinase MB Ratio 1.1 0.7 Total Protein 8.0 gm/dl Albumin 3.9 gm/dl Globulin 4.1 gm/dl Albumin/Globulin Ratio 1.0 Lyme Disease IgG Antibody NEG Lyme Disease IgM Antibody NEG Bedside Troponin I 0.220 ng/ml Troponin I < 0.015 ng/ml Hepatitis C Antibody Screen NEG Test 11/03/16 04:00 White Blood Count 6.71 K/uL Red Blood Count 3.26 M/uL Hemoglobin 10.7 g/dL Hematocrit 31.6 % Mean Corpuscular Volume 96.9 fL Mean Corpuscular Hemoglobin 32.8 pg Mean Corpuscular Hemoglobin Concent 33.9 g/dl Platelet Count 202 K/uL Mean Platelet Volume 8.8 fL Neutrophils (%) (Auto) 61.6 % Lymphocytes (%) (Auto) 22.4 % Monocytes (%) (Auto) 13.9 % Eosinophils (%) (Auto) 1.5 % Basophils (%) (Auto) 0.3 % Neutrophils # (Auto) 4.14 K/uL Lymphocytes # (Auto) 1.50 K/uL Monocytes # (Auto) 0.93 K/uL Eosinophils # (Auto) 0.10 K/uL Basophils # (Auto) 0.02 K/uL RDW Standard Deviation 45.4 fL RDW Coefficient of Variation 13.0 % Immature Granulocyte % (Auto) 0.3 % Immature Granulocyte # (Auto) 0.02 K/uL Prothrombin Time 10.9 SECONDS Prothromb Time International Ratio 1.0 Activated Partial Thromboplast Time 30.8 SECONDS Partial Thromboplastin Ratio 1.2 Sodium Level 139 mmol/L Potassium Level 4.0 mmol/L Chloride Level 107 mmol/L Carbon Dioxide Level 23 mmol/L Anion Gap 9.0 mmol/L Blood Urea Nitrogen 35 mg/dl Creatinine 1.50 mg/dl Est Creatinine Clear Calc Drug Dose 57.5 ml/min Estimated GFR () 56.2 Estimated GFR (Non- 48.5 BUN/Creatinine Ratio 23.3 Random Glucose 98 mg/dl Calcium Level 8.1 mg/dl Magnesium Level 2.5 mg/dl Total Creatine Kinase 60 U/L Creatine Kinase MB 0.6 ng/ml Creatine Kinase MB Ratio 1.0 Troponin I < 0.015 ng/ml Assessment and Plan 66 M with progressive Shortness of breath for 1 month, some arm/hand pain that maybe related to cervical spine disease ARELLANO--patient did have venous Dopplers done which were negative for DVT but did show a left popliteal cyst. Due to a creatinine 2.1, CT angiography was performed after Cr has come down and negative for PE, also no significant parenchyma changes seen, has negative out pt spriometry as per his report, will have pulmonary consult Elevated troponin this was POC, subsequent troponin negative and outpt stress test negative-pending echocardiogram, metoprolol succinate ER 100 mg , enteric- coated aspirin 325 mg hold lisinopril 40 mg due to elevated CR Left-sided neck pain--patient did have x-rays cervical spine which showed C 6 corpectomy, and C5 to 7 anterior fusion, and C4 5 degenerative disc disease with multilevel facet arthropathy. MRI pending acute on chronic renal failure--held lisinopril 40 mg , and ivf Depression- Wellbutrin SR and duloxetine GERD--ppi. Insomnia-- Ambien
[2016-11-03] MEDS ORDERED: OPTIRAY 320 IV PRN (08:30)
[2016-11-03] MEDS: ACETAMINOPHEN IV 100 ML IV PRN ×2 (09:34→18:41)
--- NOTE | 2016-11-03 09:34 | DIAGNOSTIC IMAGING REPORT ---
CT ANGIOGRAPHY OF THE CHEST, PULMONARY EMBOLUS PROTOCOL CLINICAL HISTORY: Shortness of breath, elevated troponin. COMPARISON STUDY: Chest radiograph November 02, 2016. TECHNIQUE: Following IV administration of 92 mL of Optiray-320, helical axial images of the chest were obtained utilizing the pulmonary embolus protocol. Maximal intensity projections and sagittal and coronal reformats were viewed on an independent 3D workstation. IV contrast was administered without complication. CT DOSE: 517.51 mGy.cm FINDINGS: No enlarged axillary, mediastinal or hilar lymph nodes are present. There are several calcified mediastinal lymph nodes. No pulmonary emboli are identified. The heart is mildly enlarged. There is no pericardial effusion. There is no evidence of thoracic aortic dissection. Central airways are patent. Mild groundglass opacity suggest atelectasis. There is no consolidation to suggest pneumonia. There are trace bilateral pleural effusions. There is no pneumothorax. The patient is status post gastric bypass. Upper abdomen is otherwise unremarkable. Bony thorax is unremarkable. IMPRESSION: 1. No pleural emboli identified. 2. Mild cardiomegaly. No thoracic aortic dissection. 3. Trace bilateral pleural effusions with associated subsegmental atelectasis. Electronically signed by: Noel Mir M.D. 11/03/2016 9:33 AM Dictated Date/Time: 11/03/2016 9:24 AM
[2016-11-03] MEDS: PANTOprazole SOD 40 MG TAB PO SCH (09:35)
[2016-11-03] MEDS: FERROUS SULFATE 325 MG TAB PO SCH (09:38)
[2016-11-03] MEDS: METOPROLOL SUCC 50MG EXT REL TAB PO SCH (09:39)
[2016-11-03] MEDS: ASPIRIN 325 MG ECTAB PO SCH (09:40)
[2016-11-03] MEDS: BuPROPion SR 150 MG TABCR PO SCH (09:40)
[2016-11-03] MEDS: DULOXETINE HCL 60 MG CAP PO SCH (09:40)
[2016-11-03] MEDS ORDERED: SODIUM CHLORIDE 0.9% 500ML 500 ML IV SCH (11:15)
--- NOTE | 2016-11-03 14:31 | DIAGNOSTIC IMAGING REPORT ---
MRI CERVICAL WITHOUT CONTRAST CLINICAL HISTORY: LEFT SIDE NECK AND ARM PAIN TECHNIQUE: Sagittal and axial T1, T2 and STIR images were obtained. COMPARISON STUDY: No previous studies for comparison. There are no suspicious areas of marrow replacement. No intrinsic cervical cord lesions are visualized. There are postsurgical changes the C5, C6, and C7 levels. There is an anterior metallic plate with pedicle screws the C5 and C7 levels. There is secondary artifact. C2-3: There is no evidence of disc bulge or focal herniation. There is no spinal or foraminal stenosis. C3-4: There is a small central disc protrusion. There is mild spinal canal narrowing. There is no significant foraminal narrowing C4-5: There is a circumferential disc bulge. There is minor spinal canal narrowing. There is no significant foraminal narrowing C5-6 :There are postsurgical changes at this level. There is no focal herniation. There is minimal right posterior lateral spurring. There is mild right-sided foraminal narrowing. C6-7: There are postsurgical changes present. There is no disc herniation. There is no spinal stenosis. There is moderate bilateral foraminal narrowing C7-T1: There is no evidence of disc bulge or focal herniation. There is moderate right-sided foraminal narrowing. There is no spinal stenosis. IMPRESSION: 1. Postsurgical changes the C5, C6, and C7 levels 2. Small central disc protrusion at the C3-4 level 3. Mild spinal canal narrowing at the C3-4 and C4-5 levels 4. Right-sided foraminal narrowing at the C5-6 level, bilateral foraminal narrowing at the C6-7 level, and right-sided foraminal narrowing at the C7-T1 level Electronically signed by: Baljit Bhagat M.D. 11/03/2016 2:29 PM Dictated Date/Time: 11/03/2016 2:21 PM
[2016-11-03 16:37] LABS: CALCIUM 8.7 mg/dl (8.5-10.1)
--- NOTE | 2016-11-03 19:16 | ECHOCARDIOGRAM REPORT ---
*NOTICE TO RECEIVING [employer] This information is strictly Confidential and protected under [place] law. [place] law prohibits you from making any further disclosure of this information unless further disclosure is expressly permitted by the written consent of the person to whom it pertains or is authorized by law. A general authorization for the release of medical or other information is not sufficient for this purpose. Hospital accepts no responsibility if the information is made available to any other person, INCLUDING THE PATIENT. Interpretation Summary * Name: CHRISSIE BARROSO Study Date: 11/03/2016 07:10 AM BP: 94/60 mmHg * Patient Location: C.2E\S\E206\S\1 HR: 70 * : 1950 (M/d/yyyy) Gender: Male Height: 69 in * Age: 66 yrs Ethnicity: CA Weight: 216 lb * Ordering Physician: Beck Rios * Referring Physician: Self, Referred * Performed By: Calli Zavala RCS * * Reason For Study: CHEST PAIN * BSA: 2.1 m2 * -- Conclusions -- * 1. Normal left ventricular size and systolic function. EF 55-60%. No regional wall motion abnormalities. Mild concentric left ventricular hypertrophy. * 2. Mildly dilated right ventricle with normal systolic function. * 3. No significant valvular abnormalities visualized. * 4. Technically difficult study, enhanced with IV Definity. * 5. No prior study available for comparison. Procedure Details * A complete two-dimensional transthoracic echocardiogram was performed (2D, M-mode, Doppler and color flow Doppler). * The study was technically difficult. * A contrast injection of Definity was performed to improve assessment of LV function. * Contrast was injected into an intravenous site in the right arm. * One vial of Definity ultrasound contrast was diluted in normal saline to a total volume of 10 ml. A total of '3' ml of solution was administered during imaging. * Lot # [id number] of Definity utilized for procedure. * Expiration date JAN 05. * The attending nurse who injected the contrast agent was YARA UMAÑA, RN. Left Ventricle * Normal left ventricular size and systolic function. EF 55-60%. No regional wall motion abnormalities. Mild concentric left ventricular hypertrophy. Right Ventricle * Mildly dilated right ventricle with normal systolic function. * The right ventricular systolic function is normal as assessed by tricuspid annular plane systolic excursion (TAPSE) (normal >1.5 cm). Atria * Borderline left atrial enlargement. * Right atrial size is normal. * There is no evidence of atrial septal defect, but resolution does not allow assessment for a patent foramen ovale. Mitral Valve * The mitral valve is grossly normal. * There is no mitral valve stenosis. * Significant mitral regurgitation is absent. Tricuspid Valve * The tricuspid valve is not well visualized, but is grossly normal. * There is no tricuspid stenosis. * There is trace tricuspid regurgitation. Aortic Valve * The aortic valve is trileaflet. * No hemodynamically significant valvular aortic stenosis. * No aortic regurgitation is present. Pulmonic Valve * The pulmonary valve is inadequately visualized, but the Doppler data is adequate for interpretation. * There is no pulmonic valvular stenosis. * There is no significant pulmonary regurgitation. Great Vessels * The aortic root is normal size. * Aortic arch of normal dimension. * Normal pulmonary venous flow pattern. Pericardium/Pleural * There is no pericardial effusion. Great Vessels * IVC normal in size. MMode 2D Measurements and Calculations IVSd 1.3 cm IVSs 1.9 cm LVIDd 4.9 cm LVIDs 3.4 cm LVPWd 1.2 cm LVPWs 1.4 cm IVS/LVPW 1.1 FS 30.5 % EDV(Teich) 114.2 ml ESV(Teich) 48.2 ml EF(Teich) 57.8 % EDV(cubed) 119.6 ml ESV(cubed) 40.1 ml EF(cubed) 66.5 % % IVS thick 43.1 % % LVPW thick 19.2 % LV mass(C)d 241.6 grams LV mass(C)dI 113.2 grams/m\S\2 LV mass(C)s 219.1 grams LV mass(C)sI 102.7 grams/m\S\2 SV(Teich) 66.0 ml SI(Teich) 30.9 ml/m\S\2 SV(cubed) 79.5 ml SI(cubed) 37.2 ml/m\S\2 Ao root diam 3.7 cm Ao root area 10.5 cm\S\2 ACS 2.3 cm LA dimension 3.8 cm LA/Ao 1.0 LVOT diam 2.0 cm LVOT area 3.3 cm\S\2 Doppler Measurements and Calculations MV E max petra 72.1 cm/sec MV A max petra 70.6 cm/sec MV E/A 1.0 MV P1/2t max petra 70.6 cm/sec MV P1/2t 117.2 msec MVA(P1/2t) 1.9 cm\S\2 MV dec slope 176.5 cm/sec\S\2 MV dec time 0.27 sec Ao V2 max 115.6 cm/sec Ao max PG 5.3 mmHg Ao max PG (full) 2.0 mmHg VIKASH(V,A) 2.6 cm\S\2 VIKASH(V,D) 2.6 cm\S\2 LV V1 max PG 3.3 mmHg LV V1 max 91.0 cm/sec PA V2 max 56.6 cm/sec PA max PG 1.3 mmHg
--- NOTE | 2016-11-03 19:19 | PULMONARY CONSULTATION ---
DATE OF CONSULTATION: 11/03/2016 TIME: 04:35 p.m. REPORT OF CONSULTATION: The patient was seen in room 206. He is a 66-year-old male who has a chief complaint of shortness of breath with exertion. He tells me he has had this for 1 month. I suspect it is longer; however, based upon the finding of having pulmonary function testing done back on 09/06/2016. He states that a few months ago he had no shortness of breath at all. He relates that 4 years ago he was walking 9 miles per day. He is now short of breath walking up 1 flight of steps. He states he has to walk between 1/2 and 3/4 mile to his mailbox. Usually this would be no problem at all but now he has to stop twice because of shortness of breath. He also states his legs get very tired and painful when he is walking like this. The patient came to the Emergency Room yesterday. At that time, he was complaining a lot of some neck pain and some chest pains. It is difficult to tell if he had true chest pains or more just chest tightness. He also complained of some pain in his left thumb and left knee. The patient relates that a little over a week ago, he had a bronchitis. He was coughing up green sputum. He did not cough up any blood. He was treated with an antibiotic by his family doctor. The patient states he does wheeze. He notices this mostly when his cats around his bed. Sometimes he will awaken with some wheezing. He states he does have 5 cats. He also has dogs. The cats are the only ones that seemed to make him wheeze. He relates that he does have hayfever and he takes Benadryl regularly. The patient tried his sister's inhaler. It may have been Ventolin. He thought it helped somewhat. The patient complains of fatigue. He has had some dizziness and lightheadedness. This would be most noticeable when he would arise from the lying down position. PAST SURGICAL HISTORY: 1. Five low back surgeries. 2. One neck surgery. 3. Right total knee replacement in 2009. 4. Carpal tunnel surgery, right and left. 5. Removal of fatty tumors from his neck. 6. Appendectomy. 7. Hammertoe surgery. PAST MEDICAL HISTORY: 1. Hypertension. 2. Kidney stones. 3. Insomnia. 4. Reflux. 5. Spinal stenosis. SOCIAL HISTORY: Tobacco never. ETOH - he drinks about a fifth of Reyes Beam per week. OCCUPATIONAL HISTORY: The patient states he is disabled due to his multiple back problems. FAMILY HISTORY: Father living, age 85, COPD. Mother at age 86, dementia. Sister living, has sarcoidosis. MEDICATIONS AT HOME: 1. Aspirin 325 mg daily. 2. Wellbutrin 150 mg daily. 3. Duloxetine 60 mg daily. 4. Ferrous sulfate 325 mg daily. 5. Lisinopril 40 mg daily. 6. Metoprolol 100 mg daily. 7. Omeprazole 20 mg daily. 8. Zolpidem 10 mg at bedtime. 9. Tramadol p.r.n. ALLERGIES: No known allergies. REVIEW OF SYSTEMS: Negative except for the above-mentioned complaints. Ten systems reviewed. PHYSICAL EXAMINATION: GENERAL: Mr. Nixon is a 66-year-old male who was comfortable at rest. VITAL SIGNS: Temperature last evening was 37.3. Today, he has been afebrile throughout. He has a very dark suntan. HEENT: Pupils were reactive to light. Nares were clear. Mouth: Exam showed no erythema or exudate. NECK: Palpation of the neck reveals no lymph nodes. CHEST: Normal expansion and development. The heart rate was 77 per minute. The rhythm was regular. Blood pressure 111/62. Respiratory rate 18 breaths per minute. The lung sidhu were clear bilaterally. Pulse oximetry on room air at rest was 96%. ABDOMEN: Soft. Bowel sounds were normal. There was no tenderness to palpation, masses, or organomegaly. EXTREMITIES: Showed no cyanosis, clubbing or edema. Chest x-ray on admission was negative. Venous Doppler showed no DVT. There was a left popliteal cyst. CAT scan of the sinuses was negative. CT angio of the chest showed no evidence of pulmonary emboli. There was no adenopathy. There was trace pleural effusions with very minimal subsegmental atelectasis. This did show patient was status post gastric bypass surgery, which he had not mentioned in his prior history. White count yesterday was 11.97 and today is 6.71. Hemoglobin was 12.8 yesterday and 10.7 today. Platelets were 318,000 yesterday and 202,000 today. D-dimer was 730. Coags were normal. Electrolytes today showed sodium 139, potassium 4.0, chloride 107, bicarbonate 23. BUN was 35 with a creatinine of 1.5. Yesterday, the BUN was 41 with a creatinine of 2.1. Troponin yesterday was elevated at 0.220. They have subsequently normalized. Liver functions were normal. Globulin was slightly high at 4.1. EKG done today showed normal sinus rhythm. EKG was essentially normal. IMPRESSIONS: Shortness of breath of undetermined etiology. The patient complains of shortness of breath with exertion. His exam is unremarkable. We were able to retrieve results of tests done at [facility]. He had pulmonary function testing done on September 06. Spirometry was normal. Diffusion was normal. Thus with the information we have now he has normal pulmonary function, negative CAT scan, and negative exam. He does have a history of wheezing when around his cats. It could be patient has some degree of reactive airways disease or mild asthma. One would not typically think that that would result in shortness of breath with exertion to the degree that it has. Obviously cardiac problems need to be considered. Likewise, could consider problems such as hypothyroidism. I think it would be appropriate to do a 2-step on this patient to determine if he desaturates when he ambulates. I will also check a TSH level, which I will order. Consideration could be given to an empiric bronchodilator in light of his report of a clinical response to an inhaler. It would be not unreasonable to give him a trial of a combination inhaled steroid with long-acting beta agonist such as Symbicort. I will defer to medicine as to whether they feel he needs any further cardiac workup. Thank you for asking me to assist in his care.
[2016-11-03] MEDS: BUDESONIDE/FORMOTEROL FUMARATE 160/4.5 60 PUFFS/INHALER INH SCH (20:27)
[2016-11-03] MEDS: ZOLPIDEM TARTRATE 10 MG TAB PO SCH (23:13)
[2016-11-04] VITALS (11 sets, daily range): BP systolic 106–144; BP diastolic 62–80; PULSE 67–77; TEMP 36.5–37.3; O2SAT 97–99
[2016-11-04] MEDS: SODIUM CHLORIDE 0.9% 1000ML 1,000 ML IV SCH ×3 (04:35→23:35)
[2016-11-04 05:40] LABS: BASO % 0.4 %; BASO ABS # 0.02 K/uL (0-0.2); COMPLETE YES; EOS % 2.6 %; HEMATOCRIT 30.9 % (42-52); IG% 0.4 %; LYMPH % 24.3 %; LYMPH ABS # 1.31 K/uL (1.2-3.4); MEAN CELL VOLUME 97.2 fL (80-100); MEAN CORPUSCULAR HEMOGLOBIN 33.3 pg (25-34); MEAN CORPUSCULAR HGB CONC 34.3 g/dl (32-36); MEAN PLATELET VOLUME 9.3 fL (7.4-10.4); MONO % 14.9 %; NEUT % 57.4 %; PLATELET COUNT 226 K/uL (130-400); RED BLOOD COUNT 3.18 M/uL (4.7-6.1); WHITE BLOOD COUNT 5.38 K/uL (4.8-10.8)
[2016-11-04 05:54] LABS: PARTIAL THROMBOPLASTIN RATIO 1.2; PROTHROMBIN TIME (PATIENT) 10.5 SECONDS (9.0-12.0)
[2016-11-04 06:20] LABS: BUN/CREATININE RATIO 17.3 (10-20); CALCIUM 8.1 mg/dl (8.5-10.1); MAGNESIUM 2.4 mg/dl (1.8-2.4); POTASSIUM 4.1 mmol/L (3.5-5.1)
[2016-11-04 06:28] LABS: THYROID STIMULATING HORMONE 4.14 uIu/ml (0.300-4.500)
[2016-11-04] MEDS: DULOXETINE HCL 60 MG CAP PO SCH (07:47)
[2016-11-04] MEDS: BUDESONIDE/FORMOTEROL FUMARATE 160/4.5 60 PUFFS/INHALER INH SCH ×2 (07:47→20:38)
[2016-11-04] MEDS: FERROUS SULFATE 325 MG TAB PO SCH (07:48)
[2016-11-04] MEDS: PANTOprazole SOD 40 MG TAB PO SCH (07:48)
[2016-11-04] MEDS: ASPIRIN 325 MG ECTAB PO SCH (07:48)
[2016-11-04] MEDS: BuPROPion SR 150 MG TABCR PO SCH (07:49)
[2016-11-04] MEDS: METOPROLOL SUCC 50MG EXT REL TAB PO SCH (07:49)
[2016-11-04] MEDS: ACETAMINOPHEN IV 100 ML IV PRN ×2 (07:50→17:43)
--- NOTE | 2016-11-04 10:23 | PULMONARY PROGRESS NOTE ---
DATE: 11/04/2016 DATE: 11/04/2016. TIME: 9:50 a.m. SUBJECTIVE: The patient states he still feels short of breath. Nursing walked the patient around the unit today. This was done twice. On the first occasion the nurse states that his saturations went from 95 down to 91%. The second time she walked him his saturations did not change. She was not certain how far he had walked him or for how long. He did complain of chest pressure on both occasions. Yesterday, we did start him on a trial of Symbicort because of his questionable reactive airways disease. He reports wheezing when he is closed approximates and with his cats. I believe this would not explain his current symptoms of shortness of breath with exertion. The possibility of exercise induced asthma at this age would be quite unusual. OBJECTIVE: GENERAL: The patient appears comfortable at rest. As noted yesterday, he has a very dark suntan. VITAL SIGNS: Temperature is 36.9. EARS, NOSE, THROAT EXAMINATION: Unchanged compared with yesterday and is generally unremarkable. HEART: Heart rate is 82 per minute. The rhythm is regular. Blood pressure 128/68. Room air saturation is 98%. LUNGS: Lung sidhu were clear bilaterally. No wheezes, rales or rhonchi were heard. ABDOMEN: Soft. Bowel sounds were normal. There was no tenderness to palpation. EXTREMITIES: Showed no cyanosis, clubbing or edema. LABORATORY DATA: White count today is 5.38. Hemoglobin is 10.6. Platelets are 226,000. INR is 1 and PTT was 30. Sodium is 142, potassium 4.1, chloride 111, bicarbonate 22. BUN was 17 and creatinine was 1. This was improved from yesterday when the BUN was 35 and the creatinine was 1.5. It is even more improved compared with his admission BUN and creatinine of 41 and 2.1 respectively. IMPRESSIONS: Shortness of breath of undetermined etiology. The patient does not appear to have underlying lung disease. His pulmonary functions done 2 months ago were normal. His CAT scan shows no pulmonary emboli. There is very trace effusions and very minimal atelectasis with no parenchymal disease. The possibility of cardiac disease still needs to be excluded in light of his complaints of chest pressure with exertion. We will defer to the hospitalist care. He may need to have cardiac catheterization. As noted, I have given him a trial of Symbicort and he can see empirically how that works and if it helps at all.
--- NOTE | 2016-11-04 14:29 | Progress Note ---
Subjective Date of Service: Nov 04, 2016. Subjective pt continues with exertional dyspnea. the nurse did ambulate in the unit with no hypoxia but reproduced the patients symptoms, there was mildly associated chest pressure also Problem List Medical Problems: (1) Acute coronary syndrome Status: Acute Review of Systems Constitutional: No fever, No chills, No weakness, No fatigue Respiratory: + shortness of breath, + dyspnea on exertion, No cough, No dyspnea at rest Cardiac: + chest pain, No edema Abdomen: No pain, No nausea, No vomiting, No diarrhea Musculoskeletal: No joint pain, No muscle pain, No swelling Objective Vital Signs Date Time Temp Pulse Resp B/P (MAP) Pulse Ox O2 Delivery O2 Flow Rate FiO2 11/04/16 12:00 97 Room Air 11/04/16 11:46 36.5 75 18 106/62 (77) 97 Room Air 11/04/16 08:00 98 Room Air 11/04/16 07:58 36.9 69 19 128/68 (88) 98 Room Air 11/04/16 04:00 97 Room Air 11/04/16 03:55 36.7 75 18 113/69 (84) 97 Room Air 11/04/16 00:00 98 Room Air 11/04/16 00:00 36.7 77 18 133/66 (88) 98 Room Air 11/03/16 20:00 95 Room Air 11/03/16 19:31 36.7 78 18 110/54 (72) 95 Room Air 11/03/16 16:00 Room Air 11/03/16 15:40 36.8 77 18 111/62 (78) 96 Room Air Physical Exam General Appearance: WD/WN, + moderate distress Neck: supple, no JVD Respiratory/Chest: chest non-tender, lungs clear, normal breath sounds Cardiovascular: regular rate, rhythm, no murmur Abdomen: normal bowel sounds, non tender, soft Extremities: no pedal edema, no calf tenderness Neurologic/Psychiatric: alert, oriented x 3 Laboratory Results Last 24 Hours Test 11/04/16 05:10 White Blood Count 5.38 K/uL Red Blood Count 3.18 M/uL Hemoglobin 10.6 g/dL Hematocrit 30.9 % Mean Corpuscular Volume 97.2 fL Mean Corpuscular Hemoglobin 33.3 pg Mean Corpuscular Hemoglobin Concent 34.3 g/dl Platelet Count 226 K/uL Mean Platelet Volume 9.3 fL Neutrophils (%) (Auto) 57.4 % Lymphocytes (%) (Auto) 24.3 % Monocytes (%) (Auto) 14.9 % Eosinophils (%) (Auto) 2.6 % Basophils (%) (Auto) 0.4 % Neutrophils # (Auto) 3.09 K/uL Lymphocytes # (Auto) 1.31 K/uL Monocytes # (Auto) 0.80 K/uL Eosinophils # (Auto) 0.14 K/uL Basophils # (Auto) 0.02 K/uL RDW Standard Deviation 45.5 fL RDW Coefficient of Variation 12.8 % Immature Granulocyte % (Auto) 0.4 % Immature Granulocyte # (Auto) 0.02 K/uL Prothrombin Time 10.5 SECONDS Prothromb Time International Ratio 1.0 Activated Partial Thromboplast Time 30.0 SECONDS Partial Thromboplastin Ratio 1.2 Sodium Level 142 mmol/L Potassium Level 4.1 mmol/L Chloride Level 111 mmol/L Carbon Dioxide Level 22 mmol/L Anion Gap 9.0 mmol/L Blood Urea Nitrogen 17 mg/dl Creatinine 1.00 mg/dl Est Creatinine Clear Calc Drug Dose 86.3 ml/min Estimated GFR () 91.8 Estimated GFR (Non- 79.2 BUN/Creatinine Ratio 17.3 Random Glucose 93 mg/dl Calcium Level 8.1 mg/dl Magnesium Level 2.4 mg/dl Thyroid Stimulating Hormone (TSH) 4.140 uIu/ml Assessment and Plan 66 M with progressive Shortness of breath for 1 month, some arm/hand pain that maybe related to cervical spine disease ARELLANO--patient did have venous Dopplers done which were negative for DVT but did show a left popliteal cyst. Due to a creatinine 2.1, CT angiography was performed after Cr has come down and negative for PE, also no significant parenchyma changes seen, has negative out pt spirometry as per his report, Given the recurrence of symptoms did have cardiology evaluation, agree to pursue cardiac causes of dyspnea with [facility] next week metoprolol succinate ER 100 mg , enteric-coated aspirin 325 mg hold lisinopril 40 mg due to elevated CR Left-sided neck pain--patient did have x-rays cervical spine which showed C 6 corpectomy, and C5 to 7 anterior fusion, and C4 5 degenerative disc disease with multilevel facet arthropathy. MRI shows significant disease C3-5, in any case if recurrent surgical consideration cardiac issues will need to be resolved prior acute on chronic renal failure--held lisinopril 40 mg , and now normal Depression-clinically stable Wellbutrin SR and duloxetine GERD--ppi. Insomnia-- Ambien
--- NOTE | 2016-11-04 14:57 | CARDIOLOGY CONSULTATION ---
DATE OF CONSULTATION: 11/04/2016 DATE OF CONSULTATION: 11/04/2016. CONSULTATION REQUESTED BY: Dr. Velez. REASON FOR CONSULTATION: Dyspnea on exertion, chest tightness. HISTORY OF PRESENT ILLNESS: Mr. Nixon is a very pleasant 66-year-old man with a history of hypertension, reflux, spinal stenosis, who was admitted on 11/02/2016 in the setting of progressive dyspnea on exertion, neck pain, and chest tightness. The patient states that he used to be very active, frequently walking without limitations. However, over the last month or so he has noted progressive dyspnea on exertion. He states that several months ago could walk several miles now he is short of breath with walking up one flight of steps or with walking approximately 1/4 mile to his mailbox. With this occasionally he endorses some chest tightness. This most commonly occurs if he is walking upstairs and usually resolves if he stops walking. The day of admission, the patient developed severe neck pain as well as some chest tightness while at rest. The patient states he felt like he was dying and as a result came to the Emergency Department. Here he was hemodynamically stable, initially had some acute kidney injury with a creatinine of 2. His point of care troponin was elevated at 0.2 although subsequent blood draw troponins were negative. EKG was unremarkable. He has received IV fluids and his creatinine has improved. He continues to endorse shortness of breath with exertion including with walking around the halls today. This is associated again still with some chest tightness, pounding feeling in his chest. Telemetry has been unremarkable. He had an echocardiogram that was read as preserved LV function without regional wall motion abnormalities and some mild RV dilation. CT scan thus far has shown no evidence of PE and no significant lung pathology. From a cardiac standpoint, the patient had previously underwent evaluation at [facility] earlier this month which included an exercise treadmill test. On that test he exercised for 7 minutes and 47 seconds achieving 10.1 mets. He had no ST changes and no chest pain. The patient states that he had his same shortness of breath. PAST MEDICAL HISTORY: 1. Hypertension. 2. Chronic kidney stones. 3. Insomnia. 4. Reflux. 5. Spinal stenosis. PAST SURGICAL HISTORY: 1. Five low back surgeries. 2. One neck surgery. 3. Right total hip replacement. 4. Carpal tunnel syndrome surgery. 5. Appendectomy. 6. Hammertoe surgery. SOCIAL HISTORY: He is a never smoker. He drinks about a fifth of Re[place] Beam per week. OCCUPATIONAL HISTORY: She is currently disabled due to his multiple back surgeries. FAMILY HISTORY: Father is living and has COPD age 85. Mother dementia related complications. Sister has sarcoidosis. No history of premature coronary artery disease or cardiac . MEDICATIONS AT HOME: Aspirin 325, Wellbutrin 150, duloxetine 60 mg, ferrous sulfate 325, lisinopril 40, metoprolol 100, omeprazole 20, zolpidem 10, tramadol p.r.n. ALLERGIES: No known drug allergies. REVIEW OF SYSTEMS: Ten point review of systems completed and otherwise negative unless stated in HPI. PHYSICAL EXAMINATION: VITAL SIGNS: Temperature 36.5, pulse 75, blood pressure 106/62, satting 97% on room air. GENERAL: The patient appears comfortable in no acute distress. HEAD, EYES, EARS, NOSE, AND THROAT: Sclerae are anicteric. Oropharynx is clear. Mucous membranes are moist. NECK: Supple with no lymphadenopathy. LUNGS: Clear to auscultation bilaterally. CARDIAC: He has a regular rate and rhythm. He has no appreciable murmurs, rubs or gallops. ABDOMEN: Soft, nontender, nondistended with positive bowel sounds. EXTREMITIES: Warm. She has intact distal pulses including 2+ radial pulses bilaterally. SKIN: Shows no rashes or lesions. NEUROLOGIC: Grossly nonfocal. PSYCHIATRIC: He is alert and oriented and appropriate. LABORATORY DATA: White blood cell count 5.4, hemoglobin 10.6, platelets of 226. INR is 1.0. His initial D-dimer was positive at 730. Sodium 142, potassium of 4.1, BUN of 17, creatinine of 1.0. Initial point of care troponin 0.22, subsequent troponins have all been less than 0.015. IMAGING: CTA chest, no PE identified. There was mild cardiomegaly, mild ground-glass opacities suggestive of atelectasis. CT/MRI of the neck showed postsurgical changes of C5, C6 and C7. Small disc protrusion at C3 and C4, mild spinal canal narrowing at C3 and C4 and right-sided foraminal narrowing at C5-C6. Venous Doppler was negative for DVT. Cardiac studies echocardiogram showed normal LV size and function, EF 55-60%. There was mild LVH. There was mildly dilated RV with normal function. No significant valvular abnormalities. EKG today shows sinus rhythm with ventricular rate of [address] abnormalities. Telemetry was reviewed, showed no significant arrhythmias. IMPRESSION AND PLAN: 1. Dyspnea on exertion with associated chest tightness. 2. Hypertension. 3. Cervical stenosis status post multiple back surgeries. 4. Obesity. 5. Acute kidney injury, now resolved. 6. Anemia. Mr. Nixon is here with progressive dyspnea on exertion over the last month. This has been associated with intermittent chest tightness with typical features. I have reviewed patient's studies and recent imaging. Of note, initial troponin was positive at 0.22 in the setting of some mild renal insufficiency. Also, echocardiogram shows overall preserved function; however, some suggestion of a possible inferior inferolateral hypokinesis on my review. In the setting of cardiac risk factors, typical chest symptoms and exertional dyspnea without clear pulmonary cause feel that further cardiac workup is warranted. We will plan to proceed with a left and right heart catheterization. We will plan to do that Sunday morning. In the interim, recommend continuing current regimen. Continue to monitor on telemetry. Keep n.p.o. past midnight on Sunday night. We will plan procedure via right radial arm and antecubital vein. Discussed risks, benefits, alternatives to procedure with the patient and he is willing to proceed. Thank you for allowing us to participate in the care of this patient. CAMPOS
[2016-11-04] MEDS: ZOLPIDEM TARTRATE 10 MG TAB PO SCH (23:33)
[2016-11-05] VITALS (8 sets, daily range): BP systolic 114–153; BP diastolic 66–81; PULSE 67–89; TEMP 36.4–37.4; O2SAT 95–100
[2016-11-05 05:40] LABS: BASO % 0.4 %; BASO ABS # 0.02 K/uL (0-0.2); COMPLETE YES; EOS % 3.3 %; HEMATOCRIT 31.9 % (42-52); IG% 0.4 %; LYMPH % 25.6 %; LYMPH ABS # 1.15 K/uL (1.2-3.4); MEAN CELL VOLUME 97.3 fL (80-100); MEAN CORPUSCULAR HEMOGLOBIN 32.6 pg (25-34); MEAN CORPUSCULAR HGB CONC 33.5 g/dl (32-36); MEAN PLATELET VOLUME 9.2 fL (7.4-10.4); MONO % 14.3 %; PLATELET COUNT 242 K/uL (130-400); RED BLOOD COUNT 3.28 M/uL (4.7-6.1); WHITE BLOOD COUNT 4.49 K/uL (4.8-10.8)
[2016-11-05 05:56] LABS: PARTIAL THROMBOPLASTIN RATIO 1.1; PROTHROMBIN TIME (PATIENT) 10.4 SECONDS (9.0-12.0)
[2016-11-05 06:17] LABS: BUN/CREATININE RATIO 10.8 (10-20); CALCIUM 8.3 mg/dl (8.5-10.1); CREATININE 0.9 mg/dl (0.60-1.40); MAGNESIUM 2.2 mg/dl (1.8-2.4); POTASSIUM 4.2 mmol/L (3.5-5.1)
--- NOTE | 2016-11-05 07:34 | Progress Note ---
Subjective Date of Service: Nov 05, 2016. Subjective this pt is doing well has no chest pain, still some arellano, planning for left heart cath 11/06/16 Problem List Medical Problems: (1) Acute coronary syndrome Status: Acute Review of Systems Constitutional: No fever, No chills, No weakness, No fatigue Respiratory: + dyspnea on exertion, No cough, No sputum, No shortness of breath Cardiac: No chest pain, No edema Abdomen: No pain, No nausea, No vomiting, No diarrhea Neurologic: No memory loss, No paralysis Psychiatric: No depression symptoms, No anhedonism Objective Vital Signs Date Time Temp Pulse Resp B/P (MAP) Pulse Ox O2 Delivery O2 Flow Rate FiO2 11/05/16 04:00 97 Room Air 11/05/16 03:31 36.4 68 20 114/66 (82) 97 Room Air 11/05/16 00:00 97 Room Air 11/04/16 22:50 36.6 70 16 144/75 (98) 97 Room Air 11/04/16 20:17 37.3 67 18 142/80 (100) 99 Room Air 11/04/16 20:00 99 Room Air 11/04/16 16:00 Room Air 11/04/16 15:43 36.5 67 18 134/65 (88) 99 Room Air 11/04/16 12:00 97 Room Air 11/04/16 11:46 36.5 75 18 106/62 (77) 97 Room Air 11/04/16 08:00 98 Room Air 11/04/16 07:58 36.9 69 19 128/68 (88) 98 Room Air Physical Exam General Appearance: WD/WN, + mild distress Eyes: PERRL, EOMI Neck: supple, no JVD Respiratory/Chest: lungs clear, normal breath sounds, no respiratory distress Cardiovascular: regular rate, rhythm, no murmur Abdomen: normal bowel sounds, non tender, soft Extremities: no pedal edema, no calf tenderness Neurologic/Psychiatric: alert, oriented x 3 Laboratory Results Last 24 Hours Test 11/05/16 05:28 White Blood Count 4.49 K/uL Red Blood Count 3.28 M/uL Hemoglobin 10.7 g/dL Hematocrit 31.9 % Mean Corpuscular Volume 97.3 fL Mean Corpuscular Hemoglobin 32.6 pg Mean Corpuscular Hemoglobin Concent 33.5 g/dl Platelet Count 242 K/uL Mean Platelet Volume 9.2 fL Neutrophils (%) (Auto) 56.0 % Lymphocytes (%) (Auto) 25.6 % Monocytes (%) (Auto) 14.3 % Eosinophils (%) (Auto) 3.3 % Basophils (%) (Auto) 0.4 % Neutrophils # (Auto) 2.51 K/uL Lymphocytes # (Auto) 1.15 K/uL Monocytes # (Auto) 0.64 K/uL Eosinophils # (Auto) 0.15 K/uL Basophils # (Auto) 0.02 K/uL RDW Standard Deviation 45.3 fL RDW Coefficient of Variation 12.8 % Immature Granulocyte % (Auto) 0.4 % Immature Granulocyte # (Auto) 0.02 K/uL Prothrombin Time 10.4 SECONDS Prothromb Time International Ratio 1.0 Activated Partial Thromboplast Time 29.2 SECONDS Partial Thromboplastin Ratio 1.1 Sodium Level 144 mmol/L Potassium Level 4.2 mmol/L Chloride Level 113 mmol/L Carbon Dioxide Level 23 mmol/L Anion Gap 8.0 mmol/L Blood Urea Nitrogen 10 mg/dl Creatinine 0.90 mg/dl Est Creatinine Clear Calc Drug Dose 95.8 ml/min Estimated GFR () 104.2 Estimated GFR (Non- 89.9 BUN/Creatinine Ratio 10.8 Random Glucose 93 mg/dl Calcium Level 8.3 mg/dl Magnesium Level 2.2 mg/dl Assessment and Plan 66 M with progressive Shortness of breath for 1 month, some arm/hand pain that maybe related to cervical spine disease ARELLANO--patient did have venous Dopplers done which were negative for DVT but did show a left popliteal cyst. Due to a creatinine 2.1, CT angiography was performed after Cr has come down and negative for PE, also no significant parenchyma changes seen, has negative out pt spirometry as per his report, Given the recurrence of symptoms did have cardiology evaluation, agree to pursue cardiac causes of dyspnea with [facility] 11/06 metoprolol succinate ER 100 mg , enteric-coated aspirin 325 mg hold lisinopril 40 mg due to elevated CR Left-sided neck pain--patient did have x-rays cervical spine which showed C 6 corpectomy, and C5 to 7 anterior fusion, and C4 5 degenerative disc disease with multilevel facet arthropathy. MRI shows significant disease C3-5, in any case if recurrent surgical consideration cardiac issues will need to be resolved prior acute on chronic renal failure--held lisinopril 40 mg , and now normal Depression-clinically stable Wellbutrin SR and duloxetine GERD--ppi. Insomnia-- Ambien
[2016-11-05] MEDS: SODIUM CHLORIDE 0.9% 1000ML 1,000 ML IV SCH ×2 (09:13→20:38)
[2016-11-05] MEDS: ASPIRIN 325 MG ECTAB PO SCH (09:14)
[2016-11-05] MEDS: BuPROPion SR 150 MG TABCR PO SCH (09:14)
[2016-11-05] MEDS: PANTOprazole SOD 40 MG TAB PO SCH (09:14)
[2016-11-05] MEDS: FERROUS SULFATE 325 MG TAB PO SCH (09:14)
[2016-11-05] MEDS: METOPROLOL SUCC 50MG EXT REL TAB PO SCH (09:14)
[2016-11-05] MEDS: DULOXETINE HCL 60 MG CAP PO SCH (09:14)
[2016-11-05] MEDS: BUDESONIDE/FORMOTEROL FUMARATE 160/4.5 60 PUFFS/INHALER INH SCH ×2 (09:15→20:39)
[2016-11-05] MEDS: ACETAMINOPHEN IV 100 ML IV PRN ×2 (10:56→22:31)
--- NOTE | 2016-11-05 11:32 | Cardiology Follow-Up ---
Subjective Subjective Date of Service: Nov 05, 2016. Pt evaluation today including: conversation w/ patient, physical exam, chart review, lab review, review of studies, review of inpatient medication list Additional Details: No new complaints. No chest pain/SOB overnight. Tele reviewed -- no events. Problem List Medical Problems: (1) Acute coronary syndrome Status: Acute Review of Systems Constitutional: No fever, No weakness, No fatigue Respiratory: + dyspnea on exertion, No cough, No dyspnea at rest Cardiac: + chest pain, No edema Abdomen: No pain, No nausea Musculoskeletal: + joint pain Male : + urinary frequency, No dysuria Heme: No abnormal bleeding/bruising Endo: No fatigue Skin: No rash Objective Vital Signs Last Vital Signs Documentation Date Time Temp Pulse Resp B/P (MAP) Pulse Ox O2 Delivery O2 Flow Rate FiO2 11/05/16 08:18 36.8 89 18 128/70 (89) 100 Room Air Physical Exam: General Appearance: no apparent distress, + moderate distress ENT: hearing grossly normal, pharynx normal Neck: supple, no JVD Respiratory/Chest: lungs clear, normal breath sounds Cardiovascular: regular rate, rhythm, no murmur Abdomen: normal bowel sounds, non tender, soft Extremities: no pedal edema, no calf tenderness Neurologic/Psychiatric: alert, oriented x 3 Skin: warm/dry, no rash Assessment and Plan 1. Dyspnea on exertion/chest tightness. 2. Hypertension 3. Anemia 4. Resolved SHALONDA Plan for Right and left cardiac cath tomorrow. NPO overnight. Gentle IV fluids past midnight. Continue ASA/beta-robyn Further recs pending cath findings. Medications: Current Inpatient Medications Medications (Trade) Dose Ordered Sig/Jamie Route Start Time Stop Time Status Last Admin Dose Admin Sodium Chloride 1,000 ml @ 100 mls/hr Q10H IV 11/02/16 21:45 12/02/16 21:44 11/05/16 09:13 100 MLS/HR Acetaminophen (Tylenol Tab) 650 mg Q4H PRN PO 11/02/16 20:15 12/02/16 20:14 Aspirin (Ecotrin Tab) 325 mg DAILY PO 11/03/16 09:00 12/03/16 08:59 11/05/16 09:14 325 MG Bupropion HCl (Wellbutrin-Sr Tab) 150 mg QAM PO 11/03/16 09:00 12/03/16 08:59 11/05/16 09:14 150 MG Duloxetine HCl (Cymbalta Cap) 60 mg DAILY PO 11/03/16 09:00 12/03/16 08:59 11/05/16 09:14 60 MG Tramadol HCl (Ultram Tab) 100 mg BID PRN PO 11/02/16 20:15 12/02/16 20:14 11/02/16 22:07 100 MG Zolpidem Tartrate (Ambien Tab) 10 mg HS PO 11/02/16 21:00 12/02/16 20:59 11/04/16 23:33 10 MG Ferrous Sulfate (Feosol Tab) 325 mg DAILY PO 11/03/16 09:00 12/03/16 08:59 11/05/16 09:14 325 MG Metoprolol Succinate (Toprol Xl Tab) 100 mg QAM PO 11/03/16 09:00 12/03/16 08:59 11/05/16 09:14 100 MG Pantoprazole Sodium (Protonix Tab) 40 mg QAM PO 11/03/16 09:00 12/03/16 08:59 11/05/16 09:14 40 MG Ondansetron HCl (Zofran Inj) 4 mg Q6H PRN IV 11/02/16 20:15 12/02/16 20:14 Acetaminophen 100 ml @ 400 mls/hr Q8H PRN IV 11/02/16 20:15 12/02/16 20:14 11/05/16 10:56 400 MLS/HR Ioversol (Optiray 320) 125 ml UD PRN IV 11/03/16 08:30 11/07/16 08:29 Budesonide/ Formoterol Fumarate (Symbicort 160/ 4.5 Inh) 2 puffs BID INH 11/03/16 21:00 12/03/16 20:59 11/05/16 09:15 2 PUFFS Lab Results: 11/05/16 05:28 Red Blood Count 3.28, Mean Corpuscular Volume 97.3, Mean Corpuscular Hemoglobin 32.6, Mean Corpuscular Hemoglobin Concent 33.5, Mean Platelet Volume 9.2, Neutrophils (%) (Auto) 56.0, Lymphocytes (%) (Auto) 25.6, Monocytes (%) (Auto) 14.3, Eosinophils (%) (Auto) 3.3, Basophils (%) (Auto) 0.4, Neutrophils # (Auto ) 2.51, Lymphocytes # (Auto) 1.15, Monocytes # (Auto) 0.64, Eosinophils # (Auto ) 0.15, Basophils # (Auto) 0.02 11/05/16 05:28 Test 11/05/16 05:28 White Blood Count 4.49 K/uL (4.8-10.8) Red Blood Count 3.28 M/uL (4.7-6.1) Hemoglobin 10.7 g/dL (14.0-18.0) Hematocrit 31.9 % (42-52) Mean Corpuscular Volume 97.3 fL (80-100) Mean Corpuscular Hemoglobin 32.6 pg (25-34) Mean Corpuscular Hemoglobin Concent 33.5 g/dl (32-36) Platelet Count 242 K/uL (130-400) Mean Platelet Volume 9.2 fL (7.4-10.4) Neutrophils (%) (Auto) 56.0 % Lymphocytes (%) (Auto) 25.6 % Monocytes (%) (Auto) 14.3 % Eosinophils (%) (Auto) 3.3 % Basophils (%) (Auto) 0.4 % Neutrophils # (Auto) 2.51 K/uL (1.4-6.5) Lymphocytes # (Auto) 1.15 K/uL (1.2-3.4) Monocytes # (Auto) 0.64 K/uL (0.11-0.59) Eosinophils # (Auto) 0.15 K/uL (0-0.5) Basophils # (Auto) 0.02 K/uL (0-0.2) RDW Standard Deviation 45.3 fL (36.4-46.3) RDW Coefficient of Variation 12.8 % (11.5-14.5) Immature Granulocyte % (Auto) 0.4 % Immature Granulocyte # (Auto) 0.02 K/uL (0.00-0.02) Prothrombin Time 10.4 SECONDS (9.0-12.0) Prothromb Time International Ratio 1.0 (0.9-1.1) Activated Partial Thromboplast Time 29.2 SECONDS (21.0-31.0) Partial Thromboplastin Ratio 1.1 Anion Gap 8.0 mmol/L (3-11) Est Creatinine Clear Calc Drug Dose 95.8 ml/min Estimated GFR () 104.2 Estimated GFR (Non- 89.9 BUN/Creatinine Ratio 10.8 (10-20) Calcium Level 8.3 mg/dl (8.5-10.1) Magnesium Level 2.2 mg/dl (1.8-2.4)
[2016-11-05] MEDS: TRAMADOL HCL 50 MG TAB PO PRN (20:13)
[2016-11-06] VITALS (38 sets, daily range): BP systolic 126–188; BP diastolic 73–97; PULSE 53–84; TEMP 36.6–37.1; O2SAT 96–100
[2016-11-06] MEDS: ZOLPIDEM TARTRATE 10 MG TAB PO SCH (00:02)
[2016-11-06] MEDS: TRAMADOL HCL 50 MG TAB PO PRN (06:31)
[2016-11-06] MEDS: SODIUM CHLORIDE 0.9% 1000ML 1,000 ML IV SCH ×2 (06:37→13:53)
[2016-11-06] MEDS: BUDESONIDE/FORMOTEROL FUMARATE 160/4.5 60 PUFFS/INHALER INH SCH (08:16)
[2016-11-06] MEDS: ASPIRIN 325 MG ECTAB PO SCH (08:17)
[2016-11-06] MEDS: FERROUS SULFATE 325 MG TAB PO SCH (08:17)
[2016-11-06] MEDS: BuPROPion SR 150 MG TABCR PO SCH (08:17)
[2016-11-06] MEDS: DULOXETINE HCL 60 MG CAP PO SCH (08:17)
[2016-11-06] MEDS: METOPROLOL SUCC 50MG EXT REL TAB PO SCH (08:20)
[2016-11-06] MEDS: PANTOprazole SOD 40 MG TAB PO SCH (08:20)
[2016-11-06] MEDS ORDERED: FENTANYL CITRATE INJ 50 MCG/1 ML 2 ML VIAL ONE (08:39)
[2016-11-06] MEDS ORDERED: MIDAZOLAM HCL 1 MG/ML 2ML VIAL ONE (08:39)
[2016-11-06] MEDS ORDERED: NiCARDipine HCL INJ 2.5 MG/ML 10 ML AMP ONE (08:39)
[2016-11-06] MEDS ORDERED: HEPARIN SOD (PORCINE) 1000 UNIT/ML 10 ML VIAL ONE (08:39)
[2016-11-06] MEDS ORDERED: NITROGLYCERIN/D5W 100MCG/ML 20ML SYR ONE (08:42)
--- NOTE | 2016-11-06 08:54 | Procedure Note ---
Pre-Mod Sedation Assessment General Date of Moderate Sedation: Nov 06, 2016. Vital Signs: Vital Signs Past 12 Hours Date Time Temp Pulse Resp B/P (MAP) Pulse Ox O2 Delivery O2 Flow Rate FiO2 11/06/16 08:16 36.6 68 19 148/90 (109) 97 Room Air 11/06/16 07:16 36.6 68 19 148/90 97 Room Air 11/06/16 04:00 96 Room Air 11/06/16 04:00 37.0 76 17 134/77 (96) 96 Room Air 11/06/16 00:22 37.1 70 17 126/73 (90) 98 Room Air 11/06/16 00:00 98 Room Air Review Cardiovascular: regular rate, rhythm, no edema Abdomen: normal bowel sounds, non tender Lungs: chest non-tender, lungs clear Pre-Sedation Airway Assessment Oral Cavity: WNL Able to Visualize Vocal Cords: No Short Thick Neck: No Hx of Sleep Apnea: No Smoking Status: Never Smoker Mallampati Classification: Class III ASA Classification: Class II Procedure Planning Contraindications-for Mod Sed: None Yes Notes The planned sedation has been discussed with the patient and consent obtained. I have identified the patient, determined the appropriateness of sedation and have assessed the patient immediately prior to the procedure. All medicine(s) and interventions are by my order.
--- NOTE | 2016-11-06 09:35 | Pulmonology Progress Note ---
Pulmonary Progress Note Date of Service Nov 06, 2016. Attending Dr. Yanes Subjective Tolerated cardiac catheterization this morning without difficulty. Denies any pain. Some discomfort in area of popliteal cyst on LLE. Denies any dyspnea at rest. Denies any chest pain. Feels Symbicort has been modestly palliative. Objective 66-yo male admitted through [facility] 11/02/16 with CC chest pain and neck pain with 1 -month h/o progressive dyspnea on exertion. Prior records were reviewed. PMHx includes: HTN, nephrolithiasis, spinal stenosis, obesity s/p gastric bypass. He is a life-long non-smoker. PFT 09/06/16: unremarkable In the ER he was non-hypoxic. Labs notable for elevation of troponin (x 1- resolved) and mild elevation of d-dimer (730), Cr: 2.1, and WBC: 11.97 (resolved ). He was admitted to telemetry with escalation of his anti-reflux regimen, hydration, and w/u as below. - LE doppler: no DVT - CT Sinus: unremarkable - CTA 11/03/16: mild cardiomegaly, no PE, trace bilateral pleural effusion. Trace bilateral pleural effusion - Echo: 11/03/16: EF: 55-60%. Mild LVH. Mild dilation or RV size and function. - EKG: no ischemia, no event on telemetry Today: - Composition Worker this AM - report pending - Loud snoring, witnessed apneas and arrhythmia on tele noted on nursing Physical Exam: Constitutional: WDWN male lying in hospital bed. No acute distress HEENT: + facial symmetry. EOMi, PERRLA, moist mucous membranes Respiratory: non-labored respirations. No wheeze, rales or rhonchi CV: RRR, no MRG. Warm and perfused peripherally GI: Soft, hypoactive bowel sounds MSK/Extremities: RUE arterial puncture site dressed. Neurovascularly in-tact. No peripheral edema Neurologic: A&O, good data recall. Appropriate affect. Assessment & Plan 1. Results of cardiac catheterization from this AM pending - no intervention per patient 2. Dyspnea on exertion: - CT chest and Prior PFTs unremarkable:consider methacholine challenge as outpatient - Continue Symbicort at this time as he finds this palliative but will re- evaluate utility post outpatient testing - 2-step prior to discharge 3. Snoring and witnessed apneas: In-lab PSG as outpatient (order placed) and follow-up with pulmonary/sleep as outpatient 4. Chest discomfort and dyspnea with family h/o sarcoid: AM labs - CHRIS and 24- hour urine Ca+ 5. H/O gastric bypass: Am labs - Ca+, Fe, B12, B1, folate Patient reviewed and plan agreed with. Data Medications: Current Inpatient Medications Medications (Trade) Dose Ordered Sig/Jamie Route Start Time Stop Time Status Last Admin Dose Admin Sodium Chloride 1,000 ml @ 100 mls/hr Q10H IV 11/02/16 21:45 12/02/16 21:44 11/06/16 06:37 100 MLS/HR Acetaminophen (Tylenol Tab) 650 mg Q4H PRN PO 11/02/16 20:15 12/02/16 20:14 Aspirin (Ecotrin Tab) 325 mg DAILY PO 11/03/16 09:00 12/03/16 08:59 11/06/16 08:17 325 MG Bupropion HCl (Wellbutrin-Sr Tab) 150 mg QAM PO 11/03/16 09:00 12/03/16 08:59 11/06/16 08:17 150 MG Duloxetine HCl (Cymbalta Cap) 60 mg DAILY PO 11/03/16 09:00 12/03/16 08:59 11/06/16 08:17 60 MG Tramadol HCl (Ultram Tab) 100 mg BID PRN PO 11/02/16 20:15 12/02/16 20:14 11/06/16 06:31 100 MG Zolpidem Tartrate (Ambien Tab) 10 mg HS PO 11/02/16 21:00 12/02/16 20:59 11/06/16 00:02 10 MG Ferrous Sulfate (Feosol Tab) 325 mg DAILY PO 11/03/16 09:00 12/03/16 08:59 11/06/16 08:17 325 MG Metoprolol Succinate (Toprol Xl Tab) 100 mg QAM PO 11/03/16 09:00 12/03/16 08:59 11/06/16 08:20 100 MG Pantoprazole Sodium (Protonix Tab) 40 mg QAM PO 11/03/16 09:00 12/03/16 08:59 11/06/16 08:20 40 MG Ondansetron HCl (Zofran Inj) 4 mg Q6H PRN IV 11/02/16 20:15 12/02/16 20:14 Acetaminophen 100 ml @ 400 mls/hr Q8H PRN IV 11/02/16 20:15 12/02/16 20:14 11/05/16 22:31 400 MLS/HR Ioversol (Optiray 320) 125 ml UD PRN IV 11/03/16 08:30 11/07/16 08:29 Budesonide/ Formoterol Fumarate (Symbicort 160/ 4.5 Inh) 2 puffs BID INH 11/03/16 21:00 12/03/16 20:59 11/06/16 08:16 2 PUFFS Vital Signs: Date Time Temp Pulse Resp B/P (MAP) Pulse Ox O2 Delivery O2 Flow Rate FiO2 11/06/16 08:16 36.6 68 19 148/90 (109) 97 Room Air 11/06/16 07:16 36.6 68 19 148/90 97 Room Air 11/06/16 04:00 96 Room Air 11/06/16 04:00 37.0 76 17 134/77 (96) 96 Room Air 11/06/16 00:22 37.1 70 17 126/73 (90) 98 Room Air 11/06/16 00:00 98 Room Air 11/05/16 20:00 97 Room Air 11/05/16 19:29 37.4 67 16 153/81 (105) 97 Room Air 11/05/16 16:00 Room Air 11/05/16 15:20 36.7 78 16 152/80 (104) 98 Room Air 11/05/16 12:00 Room Air 11/05/16 11:44 36.8 73 19 122/73 (89) 95 Room Air
[2016-11-06] MEDS ORDERED: SYMIN INH (11:38)
[2016-11-06] MEDS ORDERED: LSN20 PO (11:38)
--- NOTE | 2016-11-06 12:04 | Procedure Note ---
Post-Mod Sedation Assessment General Date of Moderate Sedation Nov 06, 2016. Vital Signs: Vital Signs Past 12 Hours Date Time Temp Pulse Resp B/P (MAP) Pulse Ox O2 Delivery O2 Flow Rate FiO2 11/06/16 08:16 36.6 68 19 148/90 (109) 97 Room Air 11/06/16 07:16 36.6 68 19 148/90 97 Room Air 11/06/16 04:00 96 Room Air 11/06/16 04:00 37.0 76 17 134/77 (96) 96 Room Air 11/06/16 00:22 37.1 70 17 126/73 (90) 98 Room Air 11/06/16 00:00 98 Room Air Review - Discharge Criteria Vital Signs Stable: Yes Alert/Oriented/Conversant: Yes Returned to Baseline Mental St: Yes Nausea Absent/Minimal: Yes Pain/Discomfort/Absent/Minimal: Yes Normal/Baseline Respirations: Yes Active Bleeding?: No Pt Received D/C Instructions: N/A Prescriptions Given: None Specific Proced. D/C Criteria Distal Pulses Present (Cardiac: Yes Groin site assessed-Card Cath: N/A Voided Prior To Discharge: N/A Discharged Patients Adult Escort/Transportation: Yes
--- NOTE | 2016-11-06 12:17 | Cardiac Catheterization ---
Procedure Note Procedure Date Nov 06, 2016. Pre-Procedure Diagnosis Angina AUC Score 7 Post-Procedure Diagnosis Normal Coronary Arteries, Normal Intracardiac Pressures Procedure(s) Performed Coronary Angiography, Left Heart Cath, Right Heart Cath, Ultrasound Guided Vascular Access Tie In Hand Dr. Navarro Machine Splitter(s) Rush Estimated Blood Loss 10 Medication(s) Fentanyl, Heparin, Nitroglycerin, Versed, Lidocaine 1% Summary of Findings Indication: Angina/Progressive dyspnea on exertion Access: 6Fr Slender right radial artery; 6Fr Slender Right antecubital vein via ultrasound guided access. Catheters: Spout Spring; 6Fr Cutler Findings: LM - Angiographically normal LAD - Angiographically normal, tortuous in the mid segment, before wraps around apex. Circumflex - Angiographically normal RCA - Dominant, angiographically normal LVEDP - 16 RA 4 RV 32/6 PA 35/9 (22) PCW 12 PaSat 67% AoSat 97% Angy CO/CI 6.2/2.9 Arterial Closure: TR Band Summary: 1. Essentially normal coronary arteries 2. Normal intracardiac filling pressures. No pulmonary hypertension. 3. Preserved cardiac output. Recommendations: Continued ASCVD risk factor modification including ASA/blood pressure control. Continued work-up for non-cardiac causes of dyspnea. Hemodynamics Rest Ao: 139/71/100 Final Ao: 155/81/113 LV: 143/16 Recommendations Medical therapy and/or Counseling Specimens None Radiation Exposure (mGy) 851 Contrast (mls) 30 Visi Fluids (cc crystalloids) 57 Drains None Anesthesia Moderate (09:05 - 09:31) Procedural Complication(s) None Disposition PCU ACC Data Cardiac Status Clinical evaluation leading to the procedure CAD Presntation: Unstable angina Anginal Classification: CCS III Heart Failure: No, NYHA Class: CCS I Cardiogenic Shock w/in 24Hrs: No Cardiac Arrest w/in 24Hrs: No Imaging studies past 6 months: Yes Stress studies past 6 months: Yes Standard Exercise Stress Test: Yes - Negative Stress Echocardiogram: No Stress Testing w/SPECT MPI: No Cardiac CTA: No Coronary Anatomy Dominant: Right Left Main (% Stenosis): Normal LAD (% Stenosis): Normal Circumflex (% Stenosis): Normal RCA (% Stenosis): Normal Diagnostic Physician's Name: Augusto Navarro MD Status: Elective Closure Device Percutaneous Entry Location: Radial Closure Device: Radial Band Recommendations: Medical therapy and/or Counseling Intraprocedure Events Significant Dissection: No Perforation: No
--- NOTE | 2016-11-06 12:20 | Cardiology Follow-Up ---
Subjective Subjective Date of Service: Nov 06, 2016. Pt evaluation today including: conversation w/ patient, physical exam, chart review, lab review, review of studies, review of inpatient medication list Additional Details: No chest pain, shortness of breath. Some leg discomfort at rest. No discomfort with walking. Problem List Medical Problems: (1) Acute coronary syndrome Status: Acute Review of Systems Constitutional: No fever, No chills, No weakness, No fatigue Respiratory: + dyspnea on exertion, No cough, No sputum, No shortness of breath Cardiac: No chest pain, No edema Abdomen: No pain, No nausea, No vomiting, No diarrhea Musculoskeletal: + joint pain Male : No dysuria Neurologic: No memory loss, No paralysis Psychiatric: No depression symptoms, No anhedonism Heme: No abnormal bleeding/bruising Endo: No fatigue Skin: No rash Objective Vital Signs Last Vital Signs Documentation Date Time Temp Pulse Resp B/P (MAP) Pulse Ox O2 Delivery O2 Flow Rate FiO2 11/06/16 08:16 36.6 68 19 148/90 (109) 97 Room Air Physical Exam: General Appearance: no apparent distress ENT: hearing grossly normal, pharynx normal Neck: supple, no JVD Respiratory/Chest: lungs clear, normal breath sounds, no respiratory distress Cardiovascular: regular rate, rhythm, no murmur Abdomen: normal bowel sounds, non tender, soft Extremities: no pedal edema, no calf tenderness Neurologic/Psychiatric: alert, oriented x 3 Skin: warm/dry, no rash Assessment and Plan 1. Dyspnea on exertion/chest tightness. 2. Hypertension 3. Anemia 4. Resolved SHALONDA No significant coronary artery disease on cardiac cath today. Filling pressures normal and no pulmonary hypertension. No clear cardiac etiology for patients symptoms. From a cardiac standpoint OK for discharge later today when access site hemostasis. Medications: Current Inpatient Medications Medications (Trade) Dose Ordered Sig/Jamie Route Start Time Stop Time Status Last Admin Dose Admin Sodium Chloride 1,000 ml @ 100 mls/hr Q10H IV 11/02/16 21:45 12/02/16 21:44 11/06/16 06:37 100 MLS/HR Acetaminophen (Tylenol Tab) 650 mg Q4H PRN PO 11/02/16 20:15 12/02/16 20:14 Aspirin (Ecotrin Tab) 325 mg DAILY PO 11/03/16 09:00 12/03/16 08:59 11/06/16 08:17 325 MG Bupropion HCl (Wellbutrin-Sr Tab) 150 mg QAM PO 11/03/16 09:00 12/03/16 08:59 11/06/16 08:17 150 MG Duloxetine HCl (Cymbalta Cap) 60 mg DAILY PO 11/03/16 09:00 12/03/16 08:59 11/06/16 08:17 60 MG Tramadol HCl (Ultram Tab) 100 mg BID PRN PO 11/02/16 20:15 12/02/16 20:14 11/06/16 06:31 100 MG Zolpidem Tartrate (Ambien Tab) 10 mg HS PO 11/02/16 21:00 12/02/16 20:59 11/06/16 00:02 10 MG Ferrous Sulfate (Feosol Tab) 325 mg DAILY PO 11/03/16 09:00 12/03/16 08:59 11/06/16 08:17 325 MG Metoprolol Succinate (Toprol Xl Tab) 100 mg QAM PO 11/03/16 09:00 12/03/16 08:59 11/06/16 08:20 100 MG Pantoprazole Sodium (Protonix Tab) 40 mg QAM PO 11/03/16 09:00 12/03/16 08:59 11/06/16 08:20 40 MG Ondansetron HCl (Zofran Inj) 4 mg Q6H PRN IV 11/02/16 20:15 12/02/16 20:14 Acetaminophen 100 ml @ 400 mls/hr Q8H PRN IV 11/02/16 20:15 12/02/16 20:14 11/05/16 22:31 400 MLS/HR Ioversol (Optiray 320) 125 ml UD PRN IV 11/03/16 08:30 11/07/16 08:29 Budesonide/ Formoterol Fumarate (Symbicort 160/ 4.5 Inh) 2 puffs BID INH 11/03/16 21:00 12/03/16 20:59 11/06/16 08:16 2 PUFFS
[2016-11-06] MEDS ORDERED: LISINOPRIL 20 MG TAB PO ONE (13:00)
--- NOTE | 2016-11-06 13:00 | Discharge Instructions ---
Discharge Instructions Date of Service Nov 06, 2016. Admission Reason for Admission: Elevated Troponin, Sob Discharge Discharge Diagnosis / Problem: Dyspnea on Exertion Discharge Goals Goal(s): Decrease discomfort, Improve function, Increase independence Activity Recommendations Activity Limitations: as noted below Lifting Limitations: gradually increase as tolerated Exercise/Sports Limitations: gradually increase as tolerated ACTIVITY RECOMMENDATIONS: Excess manipulation of the RIGHT wrist should be avoided for the next 24-48 hours. * No lifting over 2 pounds (approximately a 1/2 gallon of milk) with the RIGHT arm for 24 hours. * No strenuous activity such as bowling or tennis for 3 days. * Keep the site of the procedure covered with a bandage for 24 hours. *You may shower the day after the procedure. Do not take a tub bath or submerge the puncture site in water for the next 3 days. *Do not operate any motorized equipment for 3 days. SPECIAL CARE INSTRUCTIONS: The site may be slightly bruised and sore following your procedure. Should any of the following occur, contact the Dr. who performed your procedure. 1. Redness/inflammation, swelling, chills, or fever, or colored drainage at procedure site within 3-7 days after your procedure. 2. Coldness, discoloration, ongoing numbness, severe pain, or swelling. Expect mild tingling of hand and tenderness at the puncture site for up to three days. If this persists beyond three days, or other symptoms develop, notify the Dr. who performed your procedure. BLEEDING: If the procedure site on your wrist begins to bleed, do not panic 1. Place 1 or 2 fingers firmly just slightly above the insertion site to stop the bleeding. You may be able to feel your pulse as you hold pressure. 2. Lift your finger after 5 minutes to see if the bleeding has stopped. 3. Once the bleeding has stopped, gently wipe the wrist area clean with a bandage. * If the bleeding from your wrist does not stop after 10 minutes, or if there is a large amount of bleeding or spurting, call 911 (do not drive yourself to the hospital). SKIN IRRITATION: * You may experience some redness and/or swelling in the area where radiation was administered. If any skin irritation occurs, please contact your family physician. Instructions / Follow-Up Instructions / Follow-Up Dyspnea on Exertion: - Imaging and cardiac catheterization does not reveal signs of blood clots in the lungs or issues with the heart to explain your symptoms - Recommend outpatient testing with Pulmonology to include possibly repeat pulmonary function testing or further testing per their recommendations -- Consideration for a test called methacholine challenge per pulmonary's recommendations as an outpatient. Also planning for sleep study as outpatient Acute Kidney Injury: - Your kidney function was bumped but improved with holding your Lisinopril. Would recommend resuming this at a lower dose to give you blood pressure control and can be monitored by your family doctor and adjusted accordingly. -- Recommend Lisinopril 20 mg daily and a prescription will be provided Left Sided Neck Pain: - Imaging shows significant narrowing in the upper part of your spine - recommend being followed up as an outpatient but evaluation of this shortness of breath will need completed Follow-Up: Primary Care November 24 350pm Jerrica Nguyen PAC You are on wait list for sooner appointment Office recommends you call daily for cancellations Pulmonology November 16 [address] El[address] Gan PAC [address] [place] [address] Current Hospital Diet Patient's current hospital diet: Regular Diet Discharge Diet Recommended Diet: Regular Diet Pending Studies Studies pending at discharge: yes List of pending studies: angiotensin-1 converting enzyme Medical Emergencies . Who to Call and When: Medical Emergencies: If at any time you feel your situation is an emergency, please call 911 immediately. . Non-Emergent Contact Non-Emergency issues call your: Primary Care Provider Call Non-Emergent contact if: you have a fever, your pain is concerning you, you have any medication questions . . "Provider Documentation" section prepared by Lory Helton. Attending Attestation: Discharge care plan d/w RUTH Helton and I agree with her discharge instructions as outlined. Luis Nur MD . VTE Core Measure Inpt VTE Proph given/why not?: Other Anticoagulation (heparin drip)
[2016-11-06 14:07] LABS: ISTAT ARTERIAL BLOOD GAS HCO3 23 meq/L (19-24); ISTAT ARTERIAL BLOOD GAS PCO2 41 mmHg (35-46); ISTAT ARTERIAL BLOOD GAS PO2 36 mmHg (80-95); ISTAT ARTERIAL BLOOD GAS pH 7.35 (7.35-7.45); ISTAT CARBON DIOXIDE 24 mEq/l (24-31)
[2016-11-06 14:07] LABS: ISTAT ARTERIAL BLOOD GAS HCO3 21 meq/L (19-24); ISTAT ARTERIAL BLOOD GAS PCO2 32 mmHg (35-46); ISTAT ARTERIAL BLOOD GAS PO2 89 mmHg (80-95); ISTAT ARTERIAL BLOOD GAS pH 7.42 (7.35-7.45); ISTAT CARBON DIOXIDE 22 mEq/l (24-31)
--- NOTE | 2016-11-06 15:30 | Discharge Summary ---
Discharge Summary Date of Service Nov 06, 2016. (Lory Helton PA-C) Discharge Summary Admission Date: Nov 02, 2016 at 20:16 Discharge Date: Nov 06, 2016 Discharge Disposition: Home Principal Diagnosis: Dyspnea on Exertion Problems/Secondary Diagnoses: 1. HTN 2. GERD 3. Spinal Stenosis Procedures: 1. CT ANGIOGRAPHY OF THE CHEST, PULMONARY EMBOLUS PROTOCOL FINDINGS: No enlarged axillary, mediastinal or hilar lymph nodes are present. There are several calcified mediastinal lymph nodes. No pulmonary emboli are identified. The heart is mildly enlarged. There is no pericardial effusion. There is no evidence of thoracic aortic dissection. Central airways are patent. Mild groundglass opacity suggest atelectasis. There is no consolidation to suggest pneumonia. There are trace bilateral pleural effusions. There is no pneumothorax. The patient is status post gastric bypass. Upper abdomen is otherwise unremarkable. Bony thorax is unremarkable. IMPRESSION: 1. No pleural emboli identified. 2. Mild cardiomegaly. No thoracic aortic dissection. 3. Trace bilateral pleural effusions with associated subsegmental atelectasis. 2. BILATERAL LOWER EXTREMITY VENOUS DOPPLER TECHNIQUE: Sonography of the deep venous system of the bilateral lower extremities was performed. Compression and augmentation were evaluated. FINDINGS: The bilateral common femoral, superficial femoral and popliteal veins were compressible. Augmentation was normal. Flow was shown within the deep calf vessels. There was a 4.8 x 2.2 x 1.9 cm mildly complex left popliteal cyst. IMPRESSION: 1. No evidence of deep venous thrombus within the bilateral lower extremities. 2. 4.8 x 2.2 x 1.9 cm left popliteal cyst. 3. MRI CERVICAL WITHOUT CONTRAST There are no suspicious areas of marrow replacement. No intrinsic cervical cord lesions are visualized. There are postsurgical changes the C5, C6, and C7 levels. There is an anterior metallic plate with pedicle screws the C5 and C7 levels. There is secondary artifact. C2-3: There is no evidence of disc bulge or focal herniation. There is no spinal or foraminal stenosis. C3-4: There is a small central disc protrusion. There is mild spinal canal narrowing. There is no significant foraminal narrowing C4-5: There is a circumferential disc bulge. There is minor spinal canal narrowing. There is no significant foraminal narrowing C5-6 :There are postsurgical changes at this level. There is no focal herniation. There is minimal right posterior lateral spurring. There is mild right-sided foraminal narrowing. C6-7: There are postsurgical changes present. There is no disc herniation. There is no spinal stenosis. There is moderate bilateral foraminal narrowing C7-T1: There is no evidence of disc bulge or focal herniation. There is moderate right-sided foraminal narrowing. There is no spinal stenosis. IMPRESSION: 1. Postsurgical changes the C5, C6, and C7 levels 2. Small central disc protrusion at the C3-4 level 3. Mild spinal canal narrowing at the C3-4 and C4-5 levels 4. Right-sided foraminal narrowing at the C5-6 level, bilateral foraminal narrowing at the C6-7 level, and right-sided foraminal narrowing at the C7-T1 level 4. ECHOCARDIOGRAM -- Conclusions -- * 1. Normal left ventricular size and systolic function. EF 55-60%. No regional wall motion abnormalities. Mild concentric left ventricular hypertrophy. * 2. Mildly dilated right ventricle with normal systolic function. * 3. No significant valvular abnormalities visualized. * 4. Technically difficult study, enhanced with IV Definity. * 5. No prior study available for comparison. 5. CARDIAC CATHETERIZATION Findings: LM - Angiographically normal LAD - Angiographically normal, tortuous in the mid segment, before wraps around apex. Circumflex - Angiographically normal RCA - Dominant, angiographically normal LVEDP - 16 RA 4 RV 32/6 PA 35/9 (22) PCW 12 PaSat 67% AoSat 97% Angy CO/CI 6.2/2.9 Arterial Closure: TR Band Summary: 1. Essentially normal coronary arteries 2. Normal intracardiac filling pressures. No pulmonary hypertension. 3. Preserved cardiac output. Recommendations: Continued ASCVD risk factor modification including ASA/blood pressure control. Continued work-up for non-cardiac causes of dyspnea. Consultations: 1. Pulmonology 2. Cardiology (Lory Helton PA-C) Medication Reconciliation New Medications: Lisinopril (Lisinopril) 20 Mg Tab 20 MG PO DAILY for 30 Days, #30 TABS Budesonide/Formoterol Fumarate (Symbicort 160-4.5 Mcg/Act) 60 Puffs/Inhaler Aero 2 PUFFS INH BID for 30 Days, #1 INHALER Continued Medications: Aspirin (Aspirin Ec) 325 Mg Tab 325 MG PO DAILY Bupropion (Wellbutrin Sr) 150 Mg Ertab 150 MG PO QAM, TAB Duloxetine HCl (Duloxetine HCl) 60 Mg Cap 60 MG PO DAILY Ferrous Sulfate (Kp Ferrous Sulfate) 325 Mg Tab 325 MG PO DAILY Metoprolol Succinate (Metoprolol Succinate ER) 100 Mg Tabcr 100 MG PO DAILY Omeprazole (Prilosec) 20 Mg Cap 20 MG PO DAILY, CAP Tramadol HCl (Tramadol HCl) 50 Mg Tab 100 MG PO BID PRN for Pain Zolpidem Tartrate (Ambien) 10 Mg Tab 10 MG PO HS, TAB Discontinued Medications: Lisinopril (Zestril) 40 Mg Tab 40 MG PO DAILY Discharge Exam Review of Systems: Constitutional: No fever, No chills, No sweats Respiratory: + dyspnea on exertion, No cough, No dyspnea at rest Cardiovascular: No chest pain Abdomen: No pain, No nausea, No vomiting, No diarrhea, No constipation Musculoskeletal: + problem reported (intermittent L pain at posterior knee - evidence of popliteal cyst on U/S), No swelling, No calf pain Genitourinary - Male: No dysuria Integumentary: No rash Physical Exam: General Appearance: WD/WN, no apparent distress Eyes: sclerae normal ENT: hearing grossly normal Neck: supple, no JVD, trachea midline Respiratory/Chest: lungs clear, normal breath sounds, no respiratory distress, no accessory muscle use Cardiovascular: regular rate, rhythm, no gallop, no murmur Abdomen / GI: normal bowel sounds, non tender, soft Extremities: no calf tenderness, no pedal edema, + pertinent finding (R radial site for heart catheterization without bleeding; cap refill adequate) Neurologic/Psychiatric: alert, oriented x 3 Skin: normal color, warm/dry (Lory Helton, ANKURC) Hospital Course ADMISSION: The patient is a 66-year-old male who presented to the emergency department with persistent shortness of breath over the previous month, to the point he has difficulty walking up stairs. When he awoke this morning, he noted left-sided neck pain and pain into his left thumb. He has not had any unusual physical stresses to explain the symptoms. He is generally fatigued. HOSPITAL COURSE: Mr. Nixon was admitted for progressive ARELLANO x 1 month. He has undergone PFTs at [facility] in August without abnormal findings. Also underwent stress EKG with was undiagnostic. DVT and PE was ruled out by U/S and CTA. He was started on Symbicort which he reports seems to help. No specific pulmonary cause identified. He underwent cardiac catheterization on 11/06 with a R radial approach which was clean and no intervention needed. Upon admission he had a creatinine of 2.1 and this improved with holding Lisinopril and gentle hydration. His Lisinopril was reinstituted at a lower dose of 20 mg daily at this time. He also presented with complaints of neck pain with MRI performed showing joint space narrowing and would benefit from outpatient evaluation once ARELLANO explored. He is hemodynamically stable and suitable for outpatient follow- up for ongoing testing. DISPOSITION: Pulmonology is planning for outpatient methacholine challenge. Due to snoring and witnessed apnea, an outpatient sleep study is ordered. He also has a FMHx of sarcoidosis and and CHRIS level was obtained and patient will complete a 24 hr urine Ca+ at home. Total Time Spent: Greater than 30 minutes This includes examination of the patient, discharge planning, medication reconciliation, and communication with other providers. (Lory Helton PA-C) Attending Attestation and Discharge Note: Pt seen/examined, chart reviewed, and care plan d/w RUTH Helton on day of discharge. I agree w/ the pichardo components of her discharge documentation. 66yo male who presented with worsening dyspnea on exertion. He underwent an extensive cardiac and pulmonary evaluation with results of multiple tests as noted above. An exact etiology was not found. There is suspicion of LOLY as well as possibly an asthma or asthma-like condition. Outpatient testing is planned as documented by Ms. Helton. Discharge exam: gen - nad neck - no JVD heart - RRR, s1, s2, no murmur lungs - CTA b/l abd - soft, NT, ND, BS+, no HSM ext - no edema Luis Nur MD (Luis Nur MD) Discharge Instructions Please refer to the electronic Patient Visit Report (Discharge Instructions) for additional information. (Lory Helton PA-C) Additional Copies To Elodia Gan PA-C; Jerrica Nguyen PA-C
[2016-11-06 16:31] LABS: FERRITIN 190.3 ng/ml (8.0-388.0)
[2016-11-09 19:26] LABS: CALCIUM URINE 5.1 mg/dl
== END 2016-11-06 18:18 | disposition home or self-care (01) | DRG 683 ==
LOC: C.EDB 14:12 → C.2E 20:16 → ENRESERV 20:20
PROVIDERS: ADMIT Hospitalist; ATTEND Internal Medicine
PROC: 4A023N8 Measurement of Cardiac Sampling and Pressure, Bilateral, Percutaneous Approach (ICD-10-PCS; principal; 2016-11-06 09:05)
PROC: B2111ZZ Fluoroscopy of Multiple Coronary Arteries using Low Osmolar Contrast (ICD-10-PCS; principal; 2016-11-06 09:05)
DX: N17.9 Acute kidney failure, unspecified (principal); I20.0 Unstable angina; R06.00 Dyspnea, unspecified; N18.9 Chronic kidney disease, unspecified; K21.9 Gastro-esophageal reflux disease without esophagitis; R35.0 Frequency of micturition; E66.9 Obesity, unspecified; Z68.32 Body mass index [BMI] 32.0-32.9, adult; D64.9 Anemia, unspecified; G47.00 Insomnia, unspecified; M71.20 Synovial cyst of popliteal space [Baker], unspecified knee; M48.02 Spinal stenosis, cervical region; Z79.82 Long term (current) use of aspirin; Z79.899 Other long term (current) drug therapy; Z87.442 Personal history of urinary calculi; Z83.79 Family history of other diseases of the digestive system; Z82.49 Family history of ischemic heart disease and other diseases of the circulatory system; Z84.1 Family history of disorders of kidney and ureter; Z83.6 Family history of other diseases of the respiratory system; Z90.49 Acquired absence of other specified parts of digestive tract; Z96.651 Presence of right artificial knee joint

== ENCOUNTER 2020-01-23 19:26 | Inpatient (IN) ==
[2020-01-23] MEDS ORDERED: SODIUM CHLORIDE 0.9% 1000ML 1,000 ML IV SCH (20:15)
[2020-01-23 20:21] LABS: Basophils # (auto) 0.02 K/uL (0-0.2); Basophils % (auto) 0.2 %; Eosinophils # (auto) 0.06 K/uL (0-0.5); Eosinophils % (auto) 0.7 %; Hemoglobin 12.4 g/dL (14.0-18.0); Immature Granulocytes # (auto) 0.02 K/uL (0.00-0.02); Immature Granulocytes % (auto) 0.2 %; Lymphocytes # (auto) 1.22 K/uL (1.2-3.4); Lymphocytes % (auto) 14.5 %; Mean Corpuscular Hemoglobin 34.1 pg (25-34); Mean Corpuscular Hgb Conc 34.4 g/dL (32-36); Mean Corpuscular Volume 98.9 fL (80-100); Mean Platelet Volume 9.1 fL (7.4-10.4); Monocytes # (auto) 1.13 K/uL (0.11-0.59); Monocytes % (auto) 13.4 %; Neutrophils # (auto) 5.99 K/uL (1.4-6.5); Platelet Count 570 K/uL (130-400); RDW Coefficient of Variation 12.3 % (11.5-14.5); Red Blood Count 3.64 M/uL (4.7-6.1); White Blood Count 8.44 K/uL (4.8-10.8)
--- NOTE | 2020-01-23 20:27 | Emergency Department Note ---
Impression & Plan Acute dyspnea, Acute renal failure (ARF), Dehydration ED Provider Note NAME: CHRISSIE BARROSO AGE: 69 SEX: M : 1950 ARRIVES VIA: Walk-In INFORMANT: Patient, ED PROVIDER(S): Catalino Rosales MD Chief Complaint: Weakness, falls HPI: Patient does have concern for shortness of breath. The patient has had some associated weakness and concomitant falls. He has not had the strength to get up and do his daily activities very well. Patient does state he has had decreased p.o. intake and is just felt generally weak. The patient denies any recent travel. The patient has had recent procedures involving carpal tunnel release bilaterally as well as elbow releases completed by [facility] Dr. Juni Mayberry. The patient has no prior history of DVT or PE in the past. The patient has had some mild associated chest pain. Patient does find shortness of breath to be somewhat exertional. Patient denies any lower extremity swelling. The patient states he is still urinating but has had decreased urine output. Patient denies any nausea, vomiting, fevers, chills. Patient is a non-smoker and denies any alcohol use. ROS: See HPI for pertinent positives and negatives. A total of 10 systems were re viewed and otherwise negative. Past medical history: See below Surgical history: See below Social history: See below Physical Exam: GENERAL: Well appearing, well nourished, NAD, non-toxic. EYE EXAM: Normal conjunctiva. PERRL, no anisocoria and EOM's grossly intact w/o pain. NECK: Supple, no nuchal rigidity, no adenopathy, non-tender. No signs of meningismus. LUNGS: Clear to auscultation. Normal chest wall mechanics. HEART: NSR, no MRG. ABDOMEN: Abdomen soft, non-tender, normo-active bowel sounds, no masses, no rebound or guarding. BACK: No CVA TTP. SKIN: No rashes and no bruising. UPPER EXTREMITIES: Upper extremities are grossly normal. LOWER EXTREMITIES: Grossly normal, no edema. Negative Homans sign bilaterally. NEURO EXAM: A&O x3, cranial nerves II-XII grossly intact, normal speech, moves all 4 extremities on command w/o issue. Differential diagnoses: Reactive airway disease, pneumonia, pneumothorax, COPD, CHF, infections, cardiac ischemia, pulmonary embolism, musculoskeletal, gastrointestinal, as well as other pathologies. Course: Patient was seen and evaluated the bedside. Full history physical exam was performed. EKG: Indication: Shortness of breath Normal sinus rhythm, rate 81, normal intervals, normal axis Imaging Studies: Radiology results as stated below per my review in the radiologist's interpretation: XR chest 1V portable HISTORY: 69 years-old Male Chest Pain acute atypical chest pain with shortness of breath COMPARISON: Chest radiograph and CTA chest 07/12/2017 TECHNIQUE: Portable AP view of the chest FINDINGS: Cardiac silhouette is mildly enlarged, unchanged. Mild to moderate right hemidiaphragmatic elevation is new from prior. There is no pneumothorax, pleural effusion, airspace consolidation or overt pulmonary edema. Bones of the chest appear grossly intact. Degenerative changes of the shoulders and spine. Cervical spine fusion hardware. IMPRESSION: Cardiomegaly without acute process. ACT 112: Negative or not required by law. The above report was generated using voice recognition software. It may contain grammatical, syntax or spelling errors. Electronically signed by: Sina Javier M.D. 01/23/2020 8:29 PM Dictated: 01/23/202027 Transcribed: 01/23/202027 CT head/brain wo con CLINICAL HISTORY: 69 years-old Male with weakness, falls. Acute weakness with fall TECHNIQUE: Multiple axial CT images of the head were obtained without contrast. A dose lowering technique was utilized adhering to the principles of ALARA. CT DOSE: 537.48 mGy.cm COMPARISON: CT maxillofacial 11/02/2016 FINDINGS: No acute intracranial hemorrhage, midline shift, intracranial mass, hydrocephalus, territorial ischemia or abnormal extra-axial collection. Mild age-related involutional changes. The calvarium is intact. The paranasal sinuses, mastoid air cells, and middle ear cavities are clear. IMPRESSION: No acute intracranial abnormality. ACT 112: Negative or not required by law. The above report was generated using voice recognition software. It may contain grammatical, syntax or spelling errors. Electronically signed by: Sina Javier M.D. 01/23/2020 8:58 PM Dictated: 01/23/202055 Transcribed: 01/23/202055 Cardiac monitoring: An order was placed for continuous cardiac monitoring. The monitor shows a rate of 77 with sinus rhythm. MDM: Patient was seen due to concern for shortness of breath and weakness. Blood work is obtained along with a CT of the head and chest x-ray. CT of the head is unremarkable. The patient's chest x-ray shows cardiomegaly without acute process. Patient is notable for acute renal failure. Additional IV fluids were ordered along with a CK. This is an acute change. I did speak the on-call hospitalist who agreed to further evaluate treat the patient. Patient was admitted to medicine service Past Med/Surg History Medical History (Updated 01/27/20 @ 10:18 by Catalino Rosales MD) Allergic rhinitis Anemia Carpal tunnel syndrome Depression GERD (gastroesophageal reflux disease) Hypertension Insomnia Right knee DJD Surgical History (Updated 01/27/20 @ 10:17 by Catalino Rosales MD) History of carpal tunnel release Social History Smoking Status: Never smoker Second Hand Exposure: No; Hx Alcohol Use: Yes Alcohol type: hard liquor Hx Substance Use: No Preferred Language: Moroccan Communication Ability: Effective Burr Grinder Required: No Beliefs That Will Affect Care: None marital status: Current Living Situation: Spouse Feels Safe at Home: Yes Allergies Allergies Allergy/AdvReac Type Severity Reaction Status Date / Time No Known Allergies Allergy Verified 01/23/20 21:49 Home Meds Home Medications Medication Instructions Recorded Confirmed albuterol sulfate 2 puff INHALATION BID PRN 01/23/20 01/23/20 aspirin 325 mg PO DAILY 01/23/20 01/23/20 bupropion HCl 150 mg PO QAM 01/23/20 01/23/20 duloxetine 60 mg PO DAILY 01/23/20 01/23/20 lisinopril 40 mg PO DAILY 01/23/20 01/23/20 loratadine [Claritin] 10 mg PO DAILY 01/23/20 01/23/20 metoprolol succinate 50 mg PO DAILY 01/23/20 01/23/20 omeprazole 20 mg PO DAILY 01/23/20 01/23/20 tramadol 100 mg PO Q12H PRN 01/23/20 01/23/20 zolpidem 10 mg PO HS 01/23/20 01/23/20 Previous Rx's Medication Instructions Recorded folic acid 1 mg PO QAM #60 tab 01/26/20 thiamine HCl (vitamin B1) [Vitamin 100 mg PO QAM #60 tab 01/26/20 B-1] Results & Data (ED) Vital Signs Vital Signs - 24 hr 01/23/20 19:37 01/23/20 20:04 01/23/20 20:30 Temperature 36.7 C Temperature Source Oral Pulse Rate 80 78 78 Pulse Rate from SpO2 Sensor Respiratory Rate 18 16 14 Respiratory Depth Normal Blood Pressure 99/67 L 111/77 Blood Pressure Mean 77 94 Pulse Oximetry 95 96 Oxygen Delivery Method Room Air Sepsis Recent Fever Within 48 Hours No Sepsis New/Unexplained Change in Mental Status N/A Sepsis Action Taken by Nursing No Action Required 01/23/20 20:57 01/23/20 21:00 01/23/20 21:01 Temperature Temperature Source Pulse Rate 78 77 76 Pulse Rate from SpO2 Sensor 77 Respiratory Rate 14 21 18 Respiratory Depth Blood Pressure 115/70 94/58 L Blood Pressure Mean 96 70 Pulse Oximetry 100 Oxygen Delivery Method Sepsis Recent Fever Within 48 Hours Sepsis New/Unexplained Change in Mental Status Sepsis Action Taken by Nursing 01/23/20 21:30 01/23/20 21:31 01/23/20 22:00 Temperature Temperature Source Pulse Rate 79 78 75 Pulse Rate from SpO2 Sensor 78 79 75 Respiratory Rate 16 15 13 Respiratory Depth Blood Pressure 121/71 122/80 Blood Pressure Mean 79 95 Pulse Oximetry 100 98 100 Oxygen Delivery Method Sepsis Recent Fever Within 48 Hours Sepsis New/Unexplained Change in Mental Status Sepsis Action Taken by Nursing 01/23/20 22:01 01/23/20 22:36 Temperature Temperature Source Pulse Rate 75 74 Pulse Rate from SpO2 Sensor 73 Respiratory Rate 13 13 Respiratory Depth Blood Pressure Blood Pressure Mean Pulse Oximetry 100 99 Oxygen Delivery Method Sepsis Recent Fever Within 48 Hours Sepsis New/Unexplained Change in Mental Status Sepsis Action Taken by Longterm Medications Current Medication List: was personally reviewed by me Laboratory Data Attestation: I reviewed the patient's lab results. Result diagrams: 01/26/20 05:30 01/26/20 05:30 Lab Results 01/23/20 01/23/20 01/23/20 Range/Units 20:00 20:00 20:00 WBC 8.44 (4.8-10.8) K/uL RBC 3.64 L (4.7-6.1) M/uL Hgb 12.4 L (14.0-18.0) g/dL Hct 36.0 L (42-52) % MCV 98.9 (80-100) fL MCH 34.1 H (25-34) pg MCHC 34.4 (32-36) g/dL RDW Std Deviation 45.0 (36.4-46.3) fL RDW Coeff of Zuly 12.3 (11.5-14.5) % Plt Count 570 H (130-400) K/uL MPV 9.1 (7.4-10.4) fL Immature Gran % (Auto) 0.2 % Neut % (Auto) 71.0 % Lymph % (Auto) 14.5 % [place] % (Auto) 13.4 % Eos % (Auto) 0.7 % Baso % (Auto) 0.2 % Neut # (Auto) 5.99 (1.4-6.5) K/uL Lymph # (Auto) 1.22 (1.2-3.4) K/uL [place] # (Auto) 1.13 H (0.11-0.59) K/uL Eos # (Auto) 0.06 (0-0.5) K/uL Baso # (Auto) 0.02 (0-0.2) K/uL Immature Gran # (Auto) 0.02 (0.00-0.02) K/uL PT 10.7 (9.0-12.0) Seconds INR 1.0 (0.9-1.1) APTT 25.4 (21.0-31.0) Seconds PTT Ratio 0.9 Sodium 134 L (136-145) mmol/L Potassium 4.8 (3.5-5.1) mmol/L Chloride 107 (98-107) mmol/L Carbon Dioxide 17 L (21-32) mmol/L Anion Gap 11.0 (3-11) BUN 67 H (7-18) mg/dl Creatinine 3.87 H (0.6-1.4) mg/dl Est Cr Clr Drug Dosing 20.2 ml/min Est GFR ( Amer) 17.5 Est GFR (Non-Af Amer) 15.1 BUN/Creatinine Ratio 17.4 (10-20) Glucose 114 H (70-99) mg/dl Calcium 10.2 H (8.5-10.1) mg/dl Total Bilirubin 0.3 (0.2-1) mg/dl AST 27 (15-37) U/L ALT 36 (12-78) U/L Alkaline Phosphatase 101 (45-117) U/L Total Creatine Kinase (39-308) U/L Troponin I < 0.015 (0-0.045) ng/ml NT-Pro-B Natriuret Pep 141 (0-900) pg/ml Total Protein 8.2 (6.4-8.2) gm/dl Albumin 3.8 (3.4-5.0) gm/dl Globulin 4.4 H (2.5-4.0) gm/dl Albumin/Globulin Ratio 0.9 (0.9-2) Lipase 606 H (73-393) U/L 01/23/20 Range/Units 20:00 WBC (4.8-10.8) K/uL RBC (4.7-6.1) M/uL Hgb (14.0-18.0) g/dL Hct (42-52) % MCV (80-100) fL MCH (25-34) pg MCHC (32-36) g/dL RDW Std Deviation (36.4-46.3) fL RDW Coeff of Zuly (11.5-14.5) % Plt Count (130-400) K/uL MPV (7.4-10.4) fL Immature Gran % (Auto) % Neut % (Auto) % Lymph % (Auto) % [place] % (Auto) % Eos % (Auto) % Baso % (Auto) % Neut # (Auto) (1.4-6.5) K/uL Lymph # (Auto) (1.2-3.4) K/uL [place] # (Auto) (0.11-0.59) K/uL Eos # (Auto) (0-0.5) K/uL Baso # (Auto) (0-0.2) K/uL Immature Gran # (Auto) (0.00-0.02) K/uL PT (9.0-12.0) Seconds INR (0.9-1.1) APTT (21.0-31.0) Seconds PTT Ratio Sodium (136-145) mmol/L Potassium (3.5-5.1) mmol/L Chloride (98-107) mmol/L Carbon Dioxide (21-32) mmol/L Anion Gap (3-11) BUN (7-18) mg/dl Creatinine (0.6-1.4) mg/dl Est Cr Clr Drug Dosing ml/min Est GFR ( Amer) Est GFR (Non-Af Amer) BUN/Creatinine Ratio (10-20) Glucose (70-99) mg/dl Calcium (8.5-10.1) mg/dl Total Bilirubin (0.2-1) mg/dl AST (15-37) U/L ALT (12-78) U/L Alkaline Phosphatase (45-117) U/L Total Creatine Kinase 43 (39-308) U/L Troponin I (0-0.045) ng/ml NT-Pro-B Natriuret Pep (0-900) pg/ml Total Protein (6.4-8.2) gm/dl Albumin (3.4-5.0) gm/dl Globulin (2.5-4.0) gm/dl Albumin/Globulin Ratio (0.9-2) Lipase (73-393) U/L Administered Medications Discontinued Medications Acetaminophen (Acetaminophen 325 Mg Tab) 650 mg PO Q4H PRN PRN Reason: Pain or Fever Stop: 02/23/20 01:06 Last Admin: 01/25/20 15:25 Dose: 650 mg Documented by: [id number] Admin: 01/25/20 03:28 Dose: 650 mg Documented by: [id number] Admin: 01/24/20 17:39 Dose: 650 mg Documented by: [id number] Hydrocodone Bitart/Acetaminophen (Hydrocodone/Acetamophen 5/325mg Tab) Confirm Administered Dose 1 tab PO .STK-MED ONE Stop: 01/24/20 00:05 Last Admin: 01/24/20 00:08 Dose: 1 tab Documented by: [id number] Hydrocodone Bitart/Acetaminophen (Hydrocodone/Acetamophen 5/325mg Tab) 1 tab PO ONCE ONE Stop: 01/24/20 00:21 Last Admin: 01/24/20 00:26 Dose: Not Given Documented by: [id number] Aspirin (Aspirin 325 Mg Ectab) 325 mg PO DAILY ZURI Stop: 02/23/20 08:59 Last Admin: 01/26/20 07:55 Dose: 325 mg Documented by: [id number] Admin: 01/25/20 07:37 Dose: 325 mg Documented by: [id number] Admin: 01/24/20 08:22 Dose: 325 mg Documented by: [id number] Bupropion HCl (Bupropion Sr 150 Mg Tabcr) 150 mg PO QAM ZURI Stop: 02/23/20 08:59 Last Admin: 01/26/20 07:56 Dose: 150 mg Documented by: [id number] Admin: 01/25/20 07:37 Dose: 150 mg Documented by: [id number] Admin: 01/24/20 08:23 Dose: 150 mg Documented by: [id number] Duloxetine HCl (Duloxetine Hcl 60 Mg Cap) 60 mg PO DAILY ZURI Stop: 02/23/20 08:59 Last Admin: 01/26/20 07:55 Dose: 60 mg Documented by: [id number] Admin: 01/25/20 07:35 Dose: 60 mg Documented by: [id number] Admin: 01/24/20 08:22 Dose: 60 mg Documented by: [id number] Ferrous Sulfate (Ferrous Sulfate 325 Mg Tab) 650 mg PO DAILY ZURI Stop: 02/23/20 08:59 Last Admin: 01/25/20 07:37 Dose: 650 mg Documented by: [id number] Admin: 01/24/20 08:23 Dose: 650 mg Documented by: [id number] Folic Acid (Folic Acid 1 Mg Tab) 1 mg PO QAM ZURI Stop: 02/24/20 14:14 Last Admin: 01/26/20 07:55 Dose: 1 mg Documented by: [id number] Admin: 01/25/20 16:03 Dose: 1 mg Documented by: [id number] Sodium Chloride (Nss 1000ml) 1,000 mls @ 999 mls/hr IV .Q1H1M ZURI Stop: 01/23/20 21:15 Last Infusion: 01/23/20 21:27 Dose: 0 mls/hr Documented by: [id number] Admin: 01/23/20 20:14 Dose: 999 mls/hr Documented by: [id number] Sodium Chloride (Nss 1000ml) 1,000 mls @ 999 mls/hr IV .Q1H1M ONE Stop: 01/23/20 22:40 Last Infusion: 01/23/20 22:48 Dose: 0 mls/hr Documented by: [id number] Admin: 01/23/20 21:51 Dose: 999 mls/hr Documented by: [id number] Sodium Chloride (Nss 1000ml) 1,000 mls @ 100 mls/hr IV .Q10H ZURI Stop: 02/22/20 23:44 Last Infusion: 01/25/20 14:34 Dose: 0 mls/hr Documented by: [id number] Admin: 01/25/20 06:10 Dose: 100 mls/hr Documented by: [id number] Infusion: 01/25/20 05:45 Dose: 0 mls/hr Documented by: [id number] Admin: 01/24/20 18:31 Dose: 100 mls/hr Documented by: [id number] Infusion: 01/24/20 18:28 Dose: 100 mls/hr Documented by: [id number] Admin: 01/24/20 08:28 Dose: 100 mls/hr Documented by: [id number] Infusion: 01/24/20 08:28 Dose: 100 mls/hr Documented by: [id number] Admin: 01/24/20 02:24 Dose: 100 mls/hr Documented by: [id number] Magnesium Sulfate/Dextrose (Magnesium Sulfate / D5w) 1 gm in 100 mls @ 50 mls/hr IV Q2H ZURI Stop: 01/26/20 12:14 Last Infusion: 01/26/20 12:24 Dose: 0 mls/hr Documented by: [id number] Admin: 01/26/20 10:23 Dose: 50 mls/hr Documented by: [id number] Infusion: 01/26/20 10:08 Dose: 50 mls/hr Documented by: [id number] Admin: 01/26/20 08:08 Dose: 50 mls/hr Documented by: [id number] Lisinopril (Lisinopril 40 Mg Tab) 40 mg PO DAILY ZURI Stop: 02/23/20 08:59 Last Admin: 01/26/20 07:56 Dose: 40 mg Documented by: [id number] Admin: 01/25/20 07:36 Dose: 40 mg Documented by: [id number] Admin: 01/24/20 08:24 Dose: 40 mg Documented by: [id number] Loratadine (Loratadine 10 Mg Tab) 10 mg PO DAILY ZURI Stop: 02/23/20 08:59 Last Admin: 01/26/20 07:55 Dose: 10 mg Documented by: [id number] Admin: 01/25/20 07:36 Dose: 10 mg Documented by: [id number] Admin: 01/24/20 08:22 Dose: 10 mg Documented by: [id number] Metoprolol Succinate (Metoprolol Succ 50mg Ext Rel Tab) 50 mg PO DAILY [facility] Stop: 02/23/20 08:59 Last Admin: 01/26/20 07:56 Dose: 50 mg Documented by: [id number] Admin: 01/25/20 07:35 Dose: 50 mg Documented by: [id number] Admin: 01/24/20 08:23 Dose: 50 mg Documented by: [id number] Pantoprazole Sodium (Pantoprazole 40 Mg Tab) 40 mg PO DAILY [facility]URI Stop: 02/23/20 08:59 Last Admin: 01/26/20 07:56 Dose: 40 mg Documented by: [id number] Admin: 01/25/20 07:35 Dose: 40 mg Documented by: [id number] Admin: 01/24/20 08:24 Dose: 40 mg Documented by: [id number] Perflutren Lipid Microsphere (Perflutren Lipid Microsphere ([employer])) 2 ml IV ONCE ONE Stop: 01/24/20 07:11 Last Admin: 01/24/20 07:10 Dose: 2 ml Documented by: [id number] Thiamine HCl (Thiamine Hcl 100 Mg Tab) [facility] [place] Stop: 02/25/20 08:59 Last Admin: 01/26/20 07:56 Dose: 100 mg Documented by: [id number] Tramadol HCl (Tramadol Hcl 50 Mg Tablet) 100 mg PO Q12H PRN PRN Reason: Pain Stop: 02/23/20 01:06 Last Admin: 01/26/20 09:36 Dose: 100 mg Documented by: [id number] Admin: 01/25/20 21:12 Dose: 100 mg Documented by: [id number] Admin: 01/25/20 09:30 Dose: 100 mg Documented by: [id number] Admin: 01/24/20 21:25 Dose: 100 mg Documented by: [id number] Admin: 01/24/20 08:26 Dose: 100 mg Documented by: [id number] Zolpidem Tartrate (Zolpidem Tartrate 10 Mg Tab) 10 mg PO HS [facility] Stop: 02/23/20 20:59 Last Admin: 01/25/20 21:39 Dose: 10 mg Documented by: [id number] Admin: 01/24/20 21:25 Dose: 10 mg Documented by: [id number] Zolpidem Tartrate (Zolpidem Tartrate 10 Mg Tab) Confirm Administered Dose 10 mg PO .[employer] ONE Stop: 01/24/20 02:22 Last Admin: 01/24/20 02:23 Dose: 10 mg Documented by: [id number] Discharge Plan Visit Data Chief Complaint: Chest Pain Stated Complaint: chest pain, trouble breathing, vomiting ED Provider: Catalino Rosales Discharge Problem: Acute dyspnea, Acute renal failure (ARF), Dehydration Patient Disposition: Admitted As Inpatient Discharge Instructions Interventions: ED Discharge Assessment Last Done: 01/24/20 00:30 Discharge Problem: Acute renal failure (ARF) Qualifiers: Acute renal failure type: unspecified Qualified Code(s): N17.9 - Acute kidney failure, unspecified
[2020-01-23 20:31] LABS: Partial Thromboplastin Ratio 0.9; Partial Thromboplastin Time 25.4 Seconds (21.0-31.0); Prothrombin Time 10.7 Seconds (9.0-12.0)
--- NOTE | 2020-01-23 20:31 | XRay Report ---
XR chest 1V portable HISTORY: 69 years-old Male Chest Pain acute atypical chest pain with shortness of breath COMPARISON: Chest radiograph and CTA chest 07/12/2017 TECHNIQUE: Portable AP view of the chest FINDINGS: Cardiac silhouette is mildly enlarged, unchanged. Mild to moderate right hemidiaphragmatic elevation is new from prior. There is no pneumothorax, pleural effusion, airspace consolidation or overt pulmon rohit edema. Bones of the chest appear grossly intact. Degenerative changes of the shoulders and spine. Cervical spine fusion hardware. IMPRESSION: Cardiomegaly without acute process. ACT 112: Negative or not required by law. The above report was generated using voice recognition software. It may contain grammatical, syntax o r spelling errors. Electronically signed by: Sina Javier M.D. 01/23/2020 8:29 PM
[2020-01-23 20:38] LABS: Alanine Aminotransferase 36 U/L (12-78); Albumin Level 3.8 gm/dl (3.4-5.0); Aspartate Aminotransferase 27 U/L (15-37); BUN Creatinine Ratio 17.4 (10-20); Blood Urea Nitrogen 67 mg/dl (7-18); Calcium 10.2 mg/dl (8.5-10.1); Carbon Dioxide 17 mmol/L (21-32); Chloride 107 mmol/L (98-107); Creatinine Clr Calc Pharmacy 20.2 ml/min; Est GFR (African American) 17.5; Est GFR (Non-African American) 15.1; Glucose 114 mg/dl (70-99); Lipase 606 U/L (73-393); Potassium 4.8 mmol/L (3.5-5.1); Sodium 134 mmol/L (136-145)
[2020-01-23 20:43] LABS: Albumin Globulin Ratio 0.9 (0.9-2); Alkaline Phosphatase 101 U/L (45-117); Bilirubin,Total 0.3 mg/dl (0.2-1); Globulin 4.4 gm/dl (2.5-4.0); NT Pro B Type Natriuretic Pept 141 pg/ml (0-900); Total Protein 8.2 gm/dl (6.4-8.2); Troponin I < 0.015 ng/ml (0-0.045)
--- NOTE | 2020-01-23 20:59 | CT Scan Report ---
CT head/brain wo con CLINICAL HISTORY: 69 years-old Male with weakness, falls. Acute weakness with fall TECHNIQUE: Multiple axial CT images of the head were obtained without contrast. A dose lowering tech nique was utilized adhering to the principles of ALARA. CT DOSE: 537.48 mGy.cm COMPARISON: CT maxillofacial 11/02/2016 FINDINGS: No acute intracranial hemorrhage, midline shift, intracranial mass, hydrocephalus, territorial ischem ia or abnormal extra-axial collection. Mild age-related involutional changes. The calvarium is intact. The paranasal sinuses, mastoid air cells, and middle ear cavities are clear . IMPRESSION: No acute intracranial abnormality. ACT 112: Negative or not required by law. The above report was generated using voice recognition software. It may contain grammatical, syntax o r spelling errors. Electronically signed by: Sina Javier M.D. 01/23/2020 8:58 PM
[2020-01-23] MEDS ORDERED: SODIUM CHLORIDE 0.9% 1000ML 1,000 ML IV ONE (21:40)
--- NOTE | 2020-01-23 23:57 | History & Physical Report ---
Date of Service January 23, 2020 Assessment & Plan (1) Shortness of breath: The patient will be admitted to telemetry for serial cardiac enzymes, serial EKG's, cardiac rhythm monitoring and a 2-D echocardiogram with Dopplers. Unclear etiology at this time. Unable to perform CT angiography PE protocol due to acute kidney injury, however, venous Doppler bilateral lower extremities was negative for DVT. We will order a ventilation/perfusion scan to be performed in a.m. Present on Admission?: Yes (2) Acute kidney injury superimposed on chronic kidney disease: SHALONDA on CKD/hypertension- Hold HCTZ 12.5 mg daily and lisinopril 40 mg p.o. daily. Continue metoprolol succinate 50 mg p.o. daily Hold aspirin 325 mg p.o. daily until Hemoccult status verified Present on Admission?: Yes (3) Hypertension: See above Present on Admission?: Yes (4) GERD (gastroesophageal reflux disease): Omeprazole 20 mg p.o. daily Present on Admission?: Yes (5) Carpal tunnel syndrome: (6) Anemia: Mildly more anemic upon presentation today, with a hemoglobin of 12.4, which may be contributing to his shortness of breath. Heme test stools Present on Admission?: Yes (7) Insomnia: Continue zolpidem Present on Admission?: Yes (8) Depression: Continue bupropion and duloxetine. Present on Admission?: Yes (9) Allergic rhinitis: Continue Claritin 10 mg daily Present on Admission?: Yes History of Present Illness Chief Complaint: The patient presented to the emergency department with complaint of shortness of breath, dizziness and substernal chest discomfort. Primary Care Provider: Jerrica Nguyen The patient is a 69-year-old male with a past medical history including hypertension, right knee DJD, shortness of breath, GERD, chronic kidney disease, carpal tunnel syndrome release on the right side and then left side. He presents to the emergency department with shortness of breath, dizziness and substernal chest discomfort. His most recent carpal tunnel surgery, which was which is on the left, did have complications, where he needed to have I&D for infection, and was placed on IV antibiotics. He reports that he did have a left sided frozen shoulder at the same time, intermittently has pain radiating from his neck to his thumb and index finger on the left side. He also reports decreased oral intake during this last interval time as well. Allergies Allergy/AdvReac Type Severity Reaction Status Date / Time No Known Allergies Allergy Verified 01/23/20 21:49 Home Medications Home Medications Medication Instructions Recorded Confirmed Type albuterol sulfate 2 puff INHALATION BID PRN 01/23/20 01/23/20 History aspirin 325 mg PO DAILY 01/23/20 01/23/20 History bupropion HCl 150 mg PO QAM 01/23/20 01/23/20 History duloxetine 60 mg PO DAILY 01/23/20 01/23/20 History ferrous sulfate 650 mg PO DAILY 01/23/20 01/23/20 History hydrochlorothiazide 12.5 mg PO QAM 01/23/20 01/23/20 History lisinopril 40 mg PO DAILY 01/23/20 01/23/20 History loratadine [Claritin] 10 mg PO DAILY 01/23/20 01/23/20 History metoprolol succinate 50 mg PO DAILY 01/23/20 01/23/20 History omeprazole 20 mg PO DAILY 01/23/20 01/23/20 History tramadol 100 mg PO Q12H PRN 01/23/20 01/23/20 History zolpidem 10 mg PO HS 01/23/20 01/23/20 History Past Med/Surg History Medical History (Updated 01/24/20 @ 03:46 by Beck Rios MD) Allergic rhinitis Anemia Carpal tunnel syndrome Depression GERD (gastroesophageal reflux disease) Hypertension Insomnia Right knee DJD Social History Smoking Status: Never smoker Second Hand Exposure: No; Do You Dip or Chew Tobacco: No; Tobacco Cessation Education Requested by Patient: No Hx Alcohol Use: Yes Alcohol type: hard liquor Hx Substance Use: No Preferred Language: Turkish Communication Ability: Effective Circuit Board Drafter Required: No Beliefs That Will Affect Care: None Current Living Situation: Spouse Other Information That Helps Us Care for You: No Feels Safe at Home: Yes Safety Concerns: Feels Safe At This Time Review of Systems Review of Systems: The patient denies palpitations, cough, lower extremity swelling, sore throat, fevers, chills, sweats, nausea, vomiting, diarrhea , constipation, abdominal pain, pelvic pain, blood in urine or stool, dysuria, urinary frequency or urgency, lightheadedness, dizziness, headache, memory loss, loss of consciousness, rash, abnormal bruising or bleeding, imbalance, focal or generalized weakness, numbness or tingling in right arm or bilateral legs, generalized arthralgias or myalgias, back or neck pain, or night sweats. The review of systems is otherwise negative other than for that already noted above, and at least 10 systems have been reviewed. Physical Exam Physical Exam: The patient is awake, alert and oriented 3, well developed and well nourished, normocephalic and atraumatic, lying in bed and in no acute distress. HEENT--PERRL, EOMI, mucous membranes and oropharynx dry. Neck--supple. No JVD. No bruits. Thyroid normal, trachea midline, no adenopathy. Heart--normal S1 and S2. No murmurs, rubs or gallops. Lungs--clear bilaterally, no respiratory distress, no accessory muscle use. Abdomen--normal bowel sounds and soft. Nontender. Nondistended. Extremities--no cyanosis or clubbing. No edema. There are good distal pulses b/l. Dermatologic--normal skin turgor, normal color, no abnormal lymph nodes, no rash. Neurologic--cranial nerves II through XII grossly intact. Rheumatologic--normal range of motion. Psychiatric--normal affect. Results & Data Results & Data ([facility]) Vital Signs (Past 12 Hours) Vital Signs Temp Pulse Resp BP Pulse Ox 01/23/20 22:36 74 13 99 01/23/20 22:01 75 13 100 01/23/20 22:00 75 13 122/80 100 01/23/20 21:31 78 15 98 01/23/20 21:30 79 16 121/71 100 01/23/20 21:01 76 18 100 01/23/20 21:00 77 21 94/58 L 01/23/20 20:57 78 14 115/70 01/23/20 20:30 78 14 01/23/20 20:04 78 16 111/77 96 01/23/20 19:37 98.1 F 80 18 99/67 L 95 Laboratory Results Laboratory Results WBC 6.27 K/uL (4.8-10.8) 01/24/20 01:31 RBC 3.31 M/uL (4.7-6.1) L 01/24/20 01:31 Hgb 11.2 g/dL (14.0-18.0) L 01/24/20 01:31 Hct 33.2 % (42-52) L 01/24/20 01:31 MCV 100.3 fL (80-100) H 01/24/20 01:31 MCH 33.8 pg (25-34) 01/24/20 01: MCHC 33.7 g/dL (32-36) 01/24/20 01: RDW Std Deviation 45.8 fL (36.4-46.3) 01/24/20 01: RDW Coeff of Zuly 12.4 % (11.5-14.5) 01/24/20 01: Plt Count 478 K/uL (130-400) H 01/24/20 01: MPV 8.8 fL (7.4-10.4) 01/24/20 01:31 Immature Gran % (Auto) 0.2 % 01/24/20 01:31 Neut % (Auto) 59.1 % 01/24/20 01:31 Lymph % (Auto) 24.7 % 01/24/20 01:31 Rusk % (Auto) 14.2 % 01/24/20 01:31 Eos % (Auto) 1.6 % 01/24/20 01:31 Baso % (Auto) 0.2 % 01/24/20 01:31 Neut # (Auto) 3.71 K/uL (1.4-6.5) 01/24/20 01:31 Lymph # (Auto) 1.55 K/uL (1.2-3.4) 01/24/20 01:31 Rusk # (Auto) 0.89 K/uL (0.11-0.59) H 01/24/20 01:31 Eos # (Auto) 0.10 K/uL (0-0.5) 01/24/20 01:31 Baso # (Auto) 0.01 K/uL (0-0.2) 01/24/20 01: Immature Gran # (Auto) 0.01 K/uL (0.00-0.02) 01/24/20 01:31 PT 10.9 Seconds (9.0-12.0) 01/24/20 01:31 INR 1.0 (0.9-1.1) 01/24/20 01:31 APTT 23.9 Seconds (21.0-31.0) 01/24/20 01:31 PTT Ratio 0.9 01/24/20 01:31 Sodium 136 mmol/L (136-145) 01/24/20 01:31 Potassium 4.6 mmol/L (3.5-5.1) 01/24/20 01:31 Chloride 112 mmol/L (98-107) H 01/24/20 01:31 Carbon Dioxide 16 mmol/L (21-32) L 01/24/20 01:31 Anion Gap 8.0 (3-11) 01/24/20 01:31 BUN 65 mg/dl (7-18) H 01/24/20 01:31 Creatinine 3.35 mg/dl (0.6-1.4) H D 01/24/20 01:31 Est Cr Clr Drug Dosing 23.5 ml/min 01/24/20 01:31 Est GFR ( Amer) 20.8 01/24/20 01:31 Est GFR (Non-Af Amer) 18.0 01/24/20 01:31 BUN/Creatinine Ratio 19.5 (10-20) 01/24/20 01:31 Glucose 120 mg/dl (70-99) H 01/24/20 01:31 Calcium 9.1 mg/dl (8.5-10.1) 01/24/20 01:31 Magnesium 2.0 mg/dl (1.8-2.4) 01/24/20 01:31 Total Bilirubin 0.2 mg/dl (0.2-1) 01/24/20 01:31 AST 20 U/L (15-37) 01/24/20 01:31 ALT 28 U/L (12-78) 01/24/20 01:31 Alkaline Phosphatase 90 U/L (45-117) 01/24/20 01:31 Total Creatine Kinase 43 U/L (39-308) 01/23/20 20:00 Troponin I < 0.015 ng/ml (0-0.045) 01/24/20 01:31 NT-Pro-B Natriuret Pep 141 pg/ml (0-900) 01/23/20 20:00 Total Protein 7.0 gm/dl (6.4-8.2) 01/24/20 01:31 Albumin 3.2 gm/dl (3.4-5.0) L 01/24/20 01:31 Globulin 3.8 gm/dl (2.5-4.0) 01/24/20 01:31 Albumin/Globulin Ratio 0.8 (0.9-2) L 01/24/20 01:31 Lipase 606 U/L (73-393) H 01/23/20 20:00 Hepatitis C Ab Screen Neg (Neg) 01/24/20 01:31 [phone] Report Patient: CHRISSIE BARROSO AAdmit Date: 01/23/20 MR#: [id number]: [id number] [facility] Acct ID:[id number]: Date: 1950[facility] Zip: [place] [address] Age: 69Location: ED Sex: MRoom/Bed: Att Phy:Diagnosis: chest pain, trouble breathing, vomiting Cleo Phy: Jerrica Nguyen PA-CService Date: 01/23/20 Fam Phy:Interpreting Phy: Angelo Javier Admit Phy: Ordering Phy: Catalino Rosales MD cc: ~ XR chest 1V portable HISTORY: 69 years-old Male Chest Pain acute atypical chest pain with shortness of breath COMPARISON: Chest radiograph and CTA chest 07/12/2017 TECHNIQUE: Portable AP view of the chest FINDINGS: Cardiac silhouette is mildly enlarged, unchanged. Mild to moderate right hemidiaphragmatic elevation is new from prior. There is no pneumothorax, pleural effusion, airspace consolidation or overt pulmonary edema. Bones of the chest appear grossly intact. Degenerative changes of the shoulders and spine. Cervical spine fusion hardware. IMPRESSION: Cardiomegaly without acute process. ACT 112: Negative or not required by law. The above report was generated using voice recognition software. It may contain grammatical, syntax or spelling errors. Electronically signed by: Sina Javier M.D. 01/23/2020 8:29 PM Dictated: 01/23/202027 Transcribed: 01/23/202027 [phone] Scan Report Patient: CHRISSIE BARROSO AAdmit Date: 01/23/20 MR#: [id number]: [id number] [facility] Acct ID:[id number]: Date: 1950[facility] Zip: [place] [address] Age: 69Location: ED Sex: MRoom/Bed: Att Phy:Diagnosis: chest pain, trouble breathing, vomiting Cleo Phy: Jerrica Nguyen PA-CService Date: 01/23/20 [facility] Phy:Interpreting Phy: Angelo Javier Admit Phy: Ordering Phy: Catalino Rosales MD cc: ~ CT head/brain wo con CLINICAL HISTORY: 69 years-old Male with weakness, falls. Acute weakness with fall TECHNIQUE: Multiple axial CT images of the head were obtained without contrast. A dose lowering technique was utilized adhering to the principles of ALARA. CT DOSE: 537.48 mGy.cm COMPARISON: CT maxillofacial 11/02/2016 FINDINGS: No acute intracranial hemorrhage, midline shift, intracranial mass, hydrocephalus, territorial ischemia or abnormal extra-axial collection. Mild age-related involutional changes. The calvarium is intact. The paranasal sinuses, mastoid air cells, and middle ear cavities are clear. IMPRESSION: No acute intracranial abnormality. ACT 112: Negative or not required by law. The above report was generated using voice recognition software. It may contain grammatical, syntax or spelling errors. Electronically signed by: Sina Javier M.D. 01/23/2020 8:58 PM Dictated: 01/23/202055 Transcribed: 01/23/202055 [facility] Patient: CHRISSIE BARROSO (Male) : 54 Status: Date: 01/24/20 00:58 Room #: 241 History: SOB Slices: 46 Priors: Tech: Glasgow Allison @ [phone] Exams: US VENOUS BILATERAL LOWER EXTREMITIES Contrast: Accession Numbers: [id number] Preliminary Findings Only See Final Report For Complete Findings US VENOUS BILATERAL LOWER EXTREMITIES: No evidence of acute DVT. Radiologist: Nikkie Hoyos M.D. Study ready at 01:00 and initial results transmitted at 01:01 Results also transmitted to 2 [facility] ([id number]) @ [phone] (Fax) *This report constitutes a preliminary interpretation only. Non-acute findings felt to be unrelated to the clinical presentation may not be discussed in this report. The study will be interpreted and a final report will be generated by the local Radiologist the following shift. To reach the hospital radiology department call [phone]. If a discrepancy is found between the preliminary and final interpretations of this study, please notify us via our Client Portal at [email or web address], under [email or web address] [email or web address]. You can also fax this report with a description of the discrepancy, or include the final report, to our daytime fax number [phone]. If faxing, please indicate the severity of discrepancy using one of the following categories: [ ] 1 - Agree/Informational [ ] 2 - Unlikely to Affect Management [ ] 3 - Possible Eventual Change of Management [ ] 4 - Probable Immediate Change of Management For all other patient related information, please fax us at [phone]. [id number] [facility] Patient: CHRISSIE BARROSO (Male) : 54 Status: ER Date: 01/23/20 22:39 Room #: History: no appendix ARF creat 3.8 Slices: 750 Priors: Tech: Janet Gonzalez @ [phone] Exams: CT ABDOMEN & PELVIS Without Contrast Contrast: Accession Numbers: [id number] Preliminary Findings Only See Final Report For Complete Findings CT ABDOMEN & PELVIS Without Contrast: Liver, gallbladder, pancreas, adrenal glands, and kidneys are unremarkable. Calcified splenic granulomas. Postoperative changes of gastric bypass. No bowel obstruction or inflammation. Appendix not identified. Urinary bladder is normal. Prostate is normal in size. Posterior decompression and posterior hardware fixation of the spine from L3-L5. Lumbar spondylosis. No acute osseous findings. Radiologist: Nikkie Hoyos M.D. Study ready at 22:49 and initial results transmitted at 22:56 *This report constitutes a preliminary interpretation only. Non-acute findings felt to be unrelated to the clinical presentation may not be discussed in this report. The study will be interpreted and a final report will be generated by the local Radiologist the following shift. To reach the hospital radiology department call [phone]. If a discrepancy is found between the preliminary and final interpretations of this study, please notify us via our Client Portal at [email or web address], under [email or web address]. You can also fax this report with a description of the discrepancy, or include the final report, to our daytime fax number [phone]. If faxing, please indicate the severity of discrepancy using one of the following categories: [ ] 1 - Agree/Informational [ ] 2 - Unlikely to Affect Management [ ] 3 - Possible Eventual Change of Management [ ] 4 - Probable Immediate Change of Management For all other patient related information, please fax us at [phone]. [id number] Code Status & VTE Plan Code Status Full code VTE Prophylaxis Plan VTE Prophylaxis will be ordered: Yes PG Care Time/CCT Total # of Minutes Spent Total Time Spent with Patient: Total time spent is greater than 50% in coordination of care (as documented) at patient's floor/unit and/or counseling patient: Coding Level of Care Code 79647 OBS Care - Level 3 Diagnoses Shortness of breath R06.02 Acute kidney injury superimposed on chronic kidney disease N17.9; N18.9 Hypertension I10 GERD (gastroesophageal reflux disease) K21.9 Carpal tunnel syndrome G56.00 Anemia D64.9 Insomnia G47.00 Depression F32.9 Allergic rhinitis J30.9
[2020-01-24] MEDS ORDERED: HYDROCODONE/ACETAMOPHEN 5/325MG TAB PO ONE ×2 (00:04→00:20)
[2020-01-24] MEDS ORDERED: ALUMINUM/MAGNESIUM SUSP 30 ML UDC PO PRN (01:07)
[2020-01-24] MEDS ORDERED: MAGNESIUM HYDROXIDE SUSP 30 ML UDC PO PRN (01:07)
[2020-01-24 01:46] LABS: Basophils # (auto) 0.01 K/uL (0-0.2); Basophils % (auto) 0.2 %; Eosinophils % (auto) 1.6 %; Hematocrit (blood only) 33.2 % (42-52); Hemoglobin 11.2 g/dL (14.0-18.0); Immature Granulocytes # (auto) 0.01 K/uL (0.00-0.02); Immature Granulocytes % (auto) 0.2 %; Lymphocytes # (auto) 1.55 K/uL (1.2-3.4); Lymphocytes % (auto) 24.7 %; Mean Corpuscular Hemoglobin 33.8 pg (25-34); Mean Corpuscular Hgb Conc 33.7 g/dL (32-36); Mean Corpuscular Volume 100.3 fL (80-100); Mean Platelet Volume 8.8 fL (7.4-10.4); Monocytes # (auto) 0.89 K/uL (0.11-0.59); Monocytes % (auto) 14.2 %; Neutrophils # (auto) 3.71 K/uL (1.4-6.5); Neutrophils % (auto) 59.1 %; Platelet Count 478 K/uL (130-400); RDW Coefficient of Variation 12.4 % (11.5-14.5); RDW Standard Deviation 45.8 fL (36.4-46.3); Red Blood Count 3.31 M/uL (4.7-6.1); White Blood Count 6.27 K/uL (4.8-10.8)
[2020-01-24 01:55] LABS: Partial Thromboplastin Ratio 0.9; Partial Thromboplastin Time 23.9 Seconds (21.0-31.0); Prothrombin Time 10.9 Seconds (9.0-12.0)
[2020-01-24 02:02] LABS: Albumin Level 3.2 gm/dl (3.4-5.0); BUN Creatinine Ratio 19.5 (10-20); Calcium 9.1 mg/dl (8.5-10.1); Creatinine Clr Calc Pharmacy 23.5 ml/min; Est GFR (African American) 20.8; Potassium 4.6 mmol/L (3.5-5.1)
[2020-01-24 02:05] LABS: Albumin Globulin Ratio 0.8 (0.9-2); Bilirubin,Total 0.2 mg/dl (0.2-1); Globulin 3.8 gm/dl (2.5-4.0)
[2020-01-24] MEDS ORDERED: ZOLPIDEM TARTRATE 10 MG TAB PO ONE (02:21)
[2020-01-24] MEDS: SODIUM CHLORIDE 0.9% 1000ML 1,000 ML IV SCH ×3 (02:24→18:31)
[2020-01-24] MEDS ORDERED: PERFLUTREN LIPID MICROSPHERE (DEFINITY) IV ONE (07:10)
--- NOTE | 2020-01-24 07:56 | Ultrasound Report ---
BILATERAL LOWER EXTREMITY VENOUS DOPPLER HISTORY: Acute pain and swelling of the lateral lower extremities SOB COMPARISON STUDY: Duplex venous Doppler study 11/02/2016 FINDINGS: There is normal compressibility, flow, and augmentation within the bilateral lower extremit y deep venous systems. IMPRESSION: No DVT within the right or left lower extremity. ACT 112: Negative or not required by law. Electronically signed by: Sina Javier M.D. 01/24/2020 7:55 AM
[2020-01-24] MEDS: LORATADINE 10 MG TAB PO SCH (08:22)
[2020-01-24] MEDS: DULOXETINE HCL 60 MG CAP PO SCH (08:22)
[2020-01-24] MEDS: ASPIRIN 325 MG ECTAB PO SCH (08:22)
[2020-01-24] MEDS: BuPROPion SR 150 MG TABCR PO SCH (08:23)
[2020-01-24] MEDS: FERROUS SULFATE 325 MG TAB PO SCH (08:23)
[2020-01-24] MEDS: METOPROLOL SUCC 50MG EXT REL TAB PO SCH (08:23)
[2020-01-24] MEDS: PANTOprazole 40 MG TAB PO SCH (08:24)
[2020-01-24] MEDS: lisinopriL 40 MG TAB PO SCH (08:24)
[2020-01-24] MEDS: TRAMADOL HCL 50 MG TABLET PO PRN ×2 (08:26→21:25)
--- NOTE | 2020-01-24 08:43 | CT Scan Report ---
ABDOMEN AND PELVIS CT WITHOUT CONTRAST CT DOSE: 571.14 mGy.cm HISTORY: Acute renal failure. TECHNIQUE: Multiaxial CT images of the abdomen and pelvis were performed without contrast. A dose lo wering technique was utilized adhering to the principles of ALARA. COMPARISON STUDY: None. FINDINGS: The lung bases are clear. No pneumoperitoneum. No pneumatosis. L3-L5 posterior decompressio n and fusion with pedicle screws and rods. Evidence for prior gastric bypass. Small fat-containing um bilical hernia. Suboptimal evaluation for bowel pathology due to the lack of intravenous and oral con trast. However, there is no definite bowel wall thickening or obstruction. Moderate stool within the colon. The appendix is surgically absent. Normal bladder. No pelvic free fluid. There are 2 punctate stones within the left kidney. A single punctate stone within the right kidney. No ureteral stones. N o hydronephrosis. The liver, gallbladder, pancreas, spleen, and adrenal glands are within normal limi ts. IMPRESSION: 1. Bilateral nephrolithiasis. No ureteral stones. No hydronephrosis. 2. No definite bowel wall thickening or obstruction. 3. Postoperative changes as described above. ACT 112: Negative or not required by law. Electronically signed by: Saturnino Rendon M.D. 01/24/2020 8:42 AM
--- NOTE | 2020-01-24 16:17 | XCELERA ---
[id number] \\[id number]_[id number]
[2020-01-24] MEDS: ACETAMINOPHEN 325 MG TAB PO PRN (17:39)
--- NOTE | 2020-01-24 17:48 | Hospitalist Progress Note ---
Date of Service January 24, 2020 Assessment & Plan (1) Shortness of breath: Unclear etiology at this time but has improved (pt has only attempted minimal activity however) Unable to perform CT angiography PE protocol due to acute kidney injury, however, venous Doppler bilateral lower extremities was negative for DVT. V/Q scan not done yet due to reported "staffing issues". Reordered as stat ECHO without evidence of RV strain, further making PE less likely EF 60-65%, no valvular issues Trop neg x3 EKG WNL x2 CXR neg for acute CT head neg for acute Still no clear reason for SOB, chest pain, lightheadedness (2) Acute kidney injury superimposed on chronic kidney disease: SHALONDA on CKD/hypertension- Hold HCTZ 12.5 mg daily and lisinopril 40 mg p.o. daily. Continue metoprolol succinate 50 mg p.o. daily Hold aspirin 325 mg p.o. daily until Hemoccult status verified Mild improvement CTAP noted for b/l renal stones Monitor (3) Hypertension: See above (4) GERD (gastroesophageal reflux disease): Omeprazole 20 mg p.o. daily (5) Carpal tunnel syndrome: (6) Anemia: Mildly more anemic upon presentation today, with a hemoglobin of 12.4, which may be contributing to his shortness of breath. Heme test stools MCV is 100.3 with hx of test lead application testing alcohol use B12, folate pending Hx of iron deficiency anemia noted, iron studies pending (7) Insomnia: Continue zolpidem (8) Depression: Continue bupropion and duloxetine. (9) Allergic rhinitis: Continue Claritin 10 mg daily (10) Alcohol abuse: Sister apparently called and discussed pt's status with nursing. She states that pt only drinks Reyes Beam and that he has many rx bottles at home that he takes when he thinks he needs something. Pt does admit to drinking a fifth of bourbon daily until about 2 weeks ago. He states he was feeling so poorly that he had no further desire to drink and just stopped one day. He states he had no withdrawal shakes or seizures. He states that he has stopped abruptly in the past and had some shakiness for a few days, but not this time. Monitor Admission and Anticipated Discharge Date Admission Date: January 23, 2020 Subjective Pt states he is feeling better. He has had no chest pain, SOB, or lightheadedness today, but he has also not been OOB much other than the bathroom. 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 He ate without issue today. Feels his appetite is good. Pt denies fever, abd pain, n/v/c/d, LE pain or swelling. No issues with urination. Sister apparently called and discussed pt's status with nursing. She states that pt only drinks Reyes Beam and that he has many rx bottles at home that he takes when he thinks he needs something. Pt does admit to drinking a fifth of bourbon daily until about 2 weeks ago. He s tates he was feeling so poorly that he had no further desire to drink and just stopped one day. He states he had no withdrawal shakes or seizures. He states that he has stopped abruptly in the past and had some shakiness for a few days, but not this time. Review of Systems Review of Systems: Pertinent positives and negatives reviewed in HPI--all others negative Physical Exam Constitutional: WD/WN, vitals as above Eyes: normal visual sidhu by confrontation and + anicteric sclerae Neck: normal visual inspection and trachea midline Respiratory: normal respiratory effort, lungs clear to auscultation Cardiovascular: Rate/Rhythm: regular rate and regular rhythm Gastrointestinal (Abdomen): Inspection/Auscultation: abdomen not distended Percussion/Palpation: abdomen soft; abdomen nontender Musculoskeletal: Head/Neck/Chest: normocephalic and head atraumatic negative for edema, peripheral pulses intact Skin: no rashes, warm and dry Neurologic: awake; not confused Speech / Cognition: normal speech Psychiatric: A+Ox3, euthymic affect Results & Data Results & Data ([facility]) Vital Signs (Past 12 Hours) Vital Signs Temp Pulse Pulse Pulse Resp BP BP 01/24/20 15:31 36.7 C 78 16 110/71 01/24/20 15:23 76 01/24/20 11:43 36.8 C 77 20 103/69 01/24/20 08:25 36.7 C 71 20 116/76 01/24/20 07:11 69 Pulse Ox 01/24/20 15:31 96 01/24/20 15:23 01/24/20 11:43 100 01/24/20 08:25 100 01/24/20 07:11 PG Care Time/CCT Total # of Minutes Spent Total Time Spent with Patient: Total time spent is greater than 50% in coordination of care (as documented) at patient's floor/unit and/or counseling patient: Coding Level of Care Code 25655 Subseq Hosp Care Lvl 3 Diagnoses Shortness of breath R06.02 Acute kidney injury superimposed on chronic kidney disease N17.9; N18.9 Hypertension I10 GERD (gastroesophageal reflux disease) K21.9 Carpal tunnel syndrome G56.00 Anemia D64.9 Insomnia G47.00 Depression F32.9 Allergic rhinitis J30.9 Alcohol abuse F10.10
--- NOTE | 2020-01-24 19:19 | Nuclear Medicine Report ---
NM pul perfusion CLINICAL HISTORY: Shortness of breath, atypical chest pain. COMPARISON STUDY: Chest 01/23/2020. TECHNIQUE: Immediately following the intravenous administration of 5 mCi of technetium 99 M MAA for t he perfusion scan, anterior, oblique, lateral, and posterior views of the chest were obtained. Ventil ation scan was not performed due to coronavirus precautions. FINDINGS: No perfusion defects identified. Slight prominence of the cardiac silhouette which correspo nds to the chest x-ray findings. IMPRESSION: Above findings suggest a very low probability scan. ACT 112: Negative or not required by law. Electronically signed by: Saturnino Rendon M.D. 01/24/2020 7:17 PM
[2020-01-24] MEDS: ZOLPIDEM TARTRATE 10 MG TAB PO SCH (21:25)
[2020-01-24 22:01] LABS: Appearance Urine Cloudy (Clear); Bacteria Urine Automated Negative (Negative); Bilirubin Urine Negative (Negative); Blood Urine Negative (Negative); Color Urine Yellow; Epithelial Cell Urine Auto 0-5 /lpf (0-5); Glucose Urine UA Negative (Negative); Ketones Urine Negative (Negative); Leukocyte Esterase Urine Negative (Negative); Nitrite Urine Negative (Negative); Protein Urine Negative (Negative); RBC Urine Automated 0-4 /hpf (0-4); Specific Gravity Urine 1.015 (1.000-1.030); Urobilinogen Urine Negative (Negative); WBC Urine Automated 0 /hpf (0-5)
[2020-01-25] MEDS: ACETAMINOPHEN 325 MG TAB PO PRN ×2 (03:28→15:25)
--- NOTE | 2020-01-25 04:56 | Electrocardiogram Report ---
Test Reason : Blood Pressure : / mmHG Vent. Rate : 081 BPM Atrial Rate : 081 BPM P-R Int : 140 ms QRS Dur : 104 ms QT Int : 368 ms P-R-T Axes : 011 013 045 degrees QTc Int : 427 ms Poor data quality, interpretation may be adversely affected Normal sinus rhythm Normal ECG When compared with ECG of 12-JUL-2017 11:36, No significant change was found Confirmed by Clarke Andre ([id number]) on 01/25/2020 4:56:18 AM Referred By: REFERRED SELF Confirmed By:Clarke Andre
--- NOTE | 2020-01-25 05:03 | Electrocardiogram Report ---
Test Reason : Blood Pressure : / mmHG Vent. Rate : 067 BPM Atrial Rate : 067 BPM P-R Int : 166 ms QRS Dur : 110 ms QT Int : 422 ms P-R-T Axes : 053 041 057 degrees QTc Int : 445 ms Normal sinus rhythm Normal ECG When compared with ECG of 23-JAN-2020 19:54, No significant change was found Confirmed by Clarke Andre ([id number]) on 01/25/2020 5:02:44 AM Referred By: REFERRED SELF Confirmed By:Clarke Andre
[2020-01-25] MEDS: SODIUM CHLORIDE 0.9% 1000ML 1,000 ML IV SCH (06:10)
[2020-01-25 06:19] LABS: Basophils # (auto) 0.02 K/uL (0-0.2); Basophils % (auto) 0.5 %; Eosinophils # (auto) 0.12 K/uL (0-0.5); Hemoglobin 10.2 g/dL (14.0-18.0); Immature Granulocytes # (auto) 0.01 K/uL (0.00-0.02); Immature Granulocytes % (auto) 0.3 %; Lymphocytes # (auto) 1.24 K/uL (1.2-3.4); Lymphocytes % (auto) 31.2 %; Mean Corpuscular Hgb Conc 32.9 g/dL (32-36); Mean Corpuscular Volume 100.3 fL (80-100); Monocytes # (auto) 0.65 K/uL (0.11-0.59); Monocytes % (auto) 16.3 %; Neutrophils # (auto) 1.94 K/uL (1.4-6.5); Neutrophils % (auto) 48.7 %; Platelet Count 372 K/uL (130-400); RDW Coefficient of Variation 12.3 % (11.5-14.5); RDW Standard Deviation 44.8 fL (36.4-46.3); Red Blood Count 3.09 M/uL (4.7-6.1); White Blood Count 3.98 K/uL (4.8-10.8)
[2020-01-25 06:33] LABS: Partial Thromboplastin Time 26.6 Seconds (21.0-31.0); Prothrombin Time 10.9 Seconds (9.0-12.0)
[2020-01-25 06:59] LABS: Albumin Globulin Ratio 0.8 (0.9-2); Albumin Level 2.8 gm/dl (3.4-5.0); BUN Creatinine Ratio 21.4 (10-20); Bilirubin,Total 0.2 mg/dl (0.2-1); Calcium 8.8 mg/dl (8.5-10.1); Creatinine Clr Calc Pharmacy 41.1 ml/min; Est GFR (African American) 40.8; Est GFR (Non-African American) 35.2; Ferritin 1389.8 ng/ml (8-388); Globulin 3.3 gm/dl (2.5-4.0); Magnesium 1.9 mg/dl (1.8-2.4); Potassium 4.4 mmol/L (3.5-5.1); Total Protein 6.1 gm/dl (6.4-8.2)
[2020-01-25] MEDS: PANTOprazole 40 MG TAB PO SCH (07:35)
[2020-01-25] MEDS: METOPROLOL SUCC 50MG EXT REL TAB PO SCH (07:35)
[2020-01-25] MEDS: DULOXETINE HCL 60 MG CAP PO SCH (07:35)
[2020-01-25] MEDS: lisinopriL 40 MG TAB PO SCH (07:36)
[2020-01-25] MEDS: LORATADINE 10 MG TAB PO SCH (07:36)
[2020-01-25] MEDS: FERROUS SULFATE 325 MG TAB PO SCH (07:37)
[2020-01-25] MEDS: BuPROPion SR 150 MG TABCR PO SCH (07:37)
[2020-01-25] MEDS: ASPIRIN 325 MG ECTAB PO SCH (07:37)
[2020-01-25] MEDS: TRAMADOL HCL 50 MG TABLET PO PRN ×2 (09:30→21:12)
[2020-01-25 13:33] LABS: Folate (Folic Acid) 3.25 ng/ml (>5.38)
--- NOTE | 2020-01-25 15:26 | Hospitalist Progress Note ---
Date of Service January 25, 2020 Assessment & Plan (1) Shortness of breath: Unclear etiology at this time but has improved (pt has only attempted minimal activity however) Unable to perform CT angiography PE protocol due to acute kidney injury, however, venous Doppler bilateral lower extremities was negative for DVT. V/Q scan neg for PE ECHO with EF 60-65%, no valvular issues Trop neg x3 EKG WNL x2 CXR neg for acute CT head neg for acute Sx possibly related to markedly elevated iron levels, macrocytic anemia--see below (2) Acute kidney injury superimposed on chronic kidney disease: SHALONDA on CKD/hypertension- Hold HCTZ 12.5 mg daily and lisinopril 40 mg p.o. daily. Continue metoprolol succinate 50 mg p.o. daily Improving CTAP noted for b/l renal stones Monitor (3) Hypertension: See above (4) GERD (gastroesophageal reflux disease): Omeprazole 20 mg p.o. daily (5) Carpal tunnel syndrome: (6) Anemia: Mildly more anemic upon admission with a hemoglobin of 12.4, which may be contributing to his shortness of breath. Heme test stools MCV is 100.3 with hx of skilled nursing alcohol use B12 WNL, however folate is low Replace with PO and monitor Hx of iron deficiency anemia noted with iron 650mg QD as outpt Pt tells me he was started on iron "years ago" by his PCP "because I'm anemic". He states PCP "checks my blood every 6 months" and has increased his iron due to unchanged values. When asked about hemachromatosis, he states he thinks his sister might have this condition. Iron panel is markedly elevated at 187 with a ferritin at 1389. TIBC is low at 182. It seems that pt may be anemic due to folate deficiency rather than iron deficiency given elevated MCV This may be contributing to above sx LFTs WNL Cardiac workup as above HFE testing pending Pt should likely not resume iron testing given above unless actual iron panel is noted for iron deficiency This is likely the cause of pt's above acute concerns (7) Insomnia: Continue zolpidem (8) Depression: Continue bupropion and duloxetine. (9) Allergic rhinitis: Continue Claritin 10 mg daily (10) Alcohol abuse: Sister apparently called and discussed pt's status with nursing. She states that pt only drinks Reyes Beam and that he has many rx bottles at home that he takes when he thinks he needs something. Pt does admit to drinking a fifth of bourbon daily until about 2 weeks ago. He states he was feeling so poorly that he had no further desire to drink and just stopped one day. He states he had no withdrawal shakes or seizures. He states that he has stopped abruptly in the past and had some shakiness for a few days, but not this time. Monitor B12 is acceptable at 672 If pt resumes alcohol use, would likely benefit from a B complex Thiamine levels pending given weakness Will start thiamine for now as well given long standing alcohol use hx (11) Weakness: As noted above Likely related to iron overload vs true hemachromatosis, folate deficiency, possible thiamine deficiency PT/OT pending Requesting physical rehab placement on d/c Admission and Anticipated Discharge Date Admission Date: January 23, 2020 Subjective Pt states he is feeling better. He has had no chest pain, SOB, or lightheaded ness today, but he has also not been OOB much other than the bathroom. Pt has not walked outside of room since arrival. He is eating without issue. Feels his appetite is good. Pt denies fever, abd pain, n/v/c/d, LE pain or swelling. No issues with urination. Pt apparently discussed possibility for physical rehab on d/ with case management due to recent falls at home. His and sister are in agreement that pt is not steady enough for home. Pt tells me he was started on iron "years ago" by his PCP "because I'm anemic". He states PCP "checks my blood every 6 months" and has increased his iron due to unchanged values. When asked about hemachromatosis, he states he thinks his sister might have this condition. Review of Systems Review of Systems: Pertinent positives and negatives reviewed in HPI--all others negative Physical Exam Constitutional: WD/WN, vitals as above Eyes: normal visual sidhu by confrontation and + anicteric sclerae Neck: normal visual inspection and trachea midline Respiratory: normal respiratory effort, lungs clear to auscultation Cardiovascular: Rate/Rhythm: regular rate and regular rhythm Gastrointestinal (Abdomen): Inspection/Auscultation: abdomen not distended Percussion/Palpation: abdomen soft; abdomen nontender Musculoskeletal: Head/Neck/Chest: normocephalic and head atraumatic Skin: no rashes, warm and dry Bronzing noted Neurologic: awake; not confused Speech / Cognition: normal speech Psychiatric: A+Ox3, euthymic affect Results & Data Results & Data ([facility]) Vital Signs (Past 12 Hours) Vital Signs Temp Pulse Pulse Resp BP Pulse Ox 01/25/20 12:36 36.6 C 86 20 107/69 97 01/25/20 09:01 69 01/25/20 08:03 36.7 C 72 18 113/71 100 PG Care Time/CCT Total # of Minutes Spent Total Time Spent with Patient: Total time spent is greater than 50% in coordination of care (as documented) at patient's floor/unit and/or counseling patient: Coding Level of Care Code 92334 Subseq Hosp Care Lvl 3 Diagnoses Shortness of breath R06.02 Acute kidney injury superimposed on chronic kidney disease N17.9; N18.9 Hypertension I10 GERD (gastroesophageal reflux disease) K21.9 Carpal tunnel syndrome G56.00 Anemia D64.9 Insomnia G47.00 Depression F32.9 Allergic rhinitis J30.9 Alcohol abuse F10.10 Weakness R53.1
[2020-01-25] MEDS: FOLIC ACID 1 MG TAB PO SCH (16:03)
[2020-01-25] MEDS: ZOLPIDEM TARTRATE 10 MG TAB PO SCH (21:39)
[2020-01-26 05:43] LABS: Basophils # (auto) 0.02 K/uL (0-0.2); Basophils % (auto) 0.5 %; Eosinophils # (auto) 0.16 K/uL (0-0.5); Eosinophils % (auto) 3.7 %; Hematocrit (blood only) 28.9 % (42-52); Hemoglobin 9.8 g/dL (14.0-18.0); Immature Granulocytes # (auto) 0.02 K/uL (0.00-0.02); Immature Granulocytes % (auto) 0.5 %; Lymphocytes # (auto) 1.35 K/uL (1.2-3.4); Lymphocytes % (auto) 31.6 %; Mean Corpuscular Hemoglobin 33.3 pg (25-34); Mean Corpuscular Hgb Conc 33.9 g/dL (32-36); Mean Corpuscular Volume 98.3 fL (80-100); Mean Platelet Volume 8.8 fL (7.4-10.4); Monocytes # (auto) 0.59 K/uL (0.11-0.59); Monocytes % (auto) 13.8 %; Neutrophils # (auto) 2.13 K/uL (1.4-6.5); Neutrophils % (auto) 49.9 %; Platelet Count 324 K/uL (130-400); RDW Coefficient of Variation 12.2 % (11.5-14.5); RDW Standard Deviation 44.3 fL (36.4-46.3); Red Blood Count 2.94 M/uL (4.7-6.1); White Blood Count 4.27 K/uL (4.8-10.8)
[2020-01-26 05:55] LABS: Partial Thromboplastin Ratio 0.9; Partial Thromboplastin Time 25.5 Seconds (21.0-31.0); Prothrombin Time 10.8 Seconds (9.0-12.0)
[2020-01-26 06:15] LABS: Albumin Level 2.8 gm/dl (3.4-5.0); BUN Creatinine Ratio 17.6 (10-20); Calcium 9.1 mg/dl (8.5-10.1); Creatinine Clr Calc Pharmacy 48.4 ml/min; Est GFR (African American) 49.8; Magnesium 1.7 mg/dl (1.8-2.4); Potassium 4.1 mmol/L (3.5-5.1)
[2020-01-26 06:18] LABS: Albumin Globulin Ratio 0.8 (0.9-2); Bilirubin,Total 0.3 mg/dl (0.2-1); Globulin 3.5 gm/dl (2.5-4.0); Total Protein 6.3 gm/dl (6.4-8.2)
--- NOTE | 2020-01-26 06:43 | Electrocardiogram Report ---
Test Reason : Blood Pressure : / mmHG Vent. Rate : 068 BPM Atrial Rate : 068 BPM P-R Int : 156 ms QRS Dur : 100 ms QT Int : 392 ms P-R-T Axes : 060 050 066 degrees QTc Int : 416 ms Normal sinus rhythm Normal ECG When compared with ECG of 24-JAN-2020 06:42, No significant change was found Confirmed by Clarke Andre ([id number]) on 01/26/2020 6:42:59 AM Referred By: REFERRED SELF Confirmed By:Clarke Andre
[2020-01-26] MEDS: FOLIC ACID 1 MG TAB PO SCH (07:55)
[2020-01-26] MEDS: DULOXETINE HCL 60 MG CAP PO SCH (07:55)
[2020-01-26] MEDS: LORATADINE 10 MG TAB PO SCH (07:55)
[2020-01-26] MEDS: ASPIRIN 325 MG ECTAB PO SCH (07:55)
[2020-01-26] MEDS: lisinopriL 40 MG TAB PO SCH (07:56)
[2020-01-26] MEDS: BuPROPion SR 150 MG TABCR PO SCH (07:56)
[2020-01-26] MEDS: METOPROLOL SUCC 50MG EXT REL TAB PO SCH (07:56)
[2020-01-26] MEDS: PANTOprazole 40 MG TAB PO SCH (07:56)
[2020-01-26] MEDS: MAGNESIUM SULFATE / D5W 1 GM/100 ML BAG IV SCH ×2 (08:08→10:23)
[2020-01-26] MEDS ORDERED: THIAMINE HCL 100 MG TAB PO SCH (09:00)
[2020-01-26] MEDS: TRAMADOL HCL 50 MG TABLET PO PRN (09:36)
--- NOTE | 2020-01-26 13:44 | Discharge Summary ---
Date of Service January 26, 2020 Admission HPI Per Admitting Provider The patient is a 69-year-old male with a past medical history including hypertension, right knee DJD, shortness of breath, GERD, chronic kidney disease, carpal tunnel syndrome release on the right side and then left side. He presents to the emergency department with shortness of breath, dizziness and substernal chest discomfort. His most recent carpal tunnel surgery, which was which is on the left, did have complications, where he needed to have I&D for infection, and was placed on IV antibiotics. He reports that he did have a left sided frozen shoulder at the same time, intermittently has pain radiating from his neck to his thumb and index finger on the left side. He also reports decreased oral intake during this last interval time as well. Principal Diagnosis Pt denies further SOB, chest pain, lightheadedness, but he has not ambulated very far overall. Ongoing pain related to his L carpal tunnel surgery and complications. Pt denies fever, abd pain, n/v/c/d, LE pain or swelling. Tolerating PO, although appetite is a bit low. Discharge Exam Constitutional WD/WN, vitals as above Eyes normal visual sidhu by confrontation and + anicteric sclerae Neck normal visual inspection and trachea midline Respiratory normal respiratory effort, lungs clear to auscultation Cardiovascular Rate/Rhythm: regular rate and regular rhythm Gastrointestinal (Abdomen) Inspection/Auscultation: abdomen not distended Percussion/Palpation: abdomen soft; abdomen nontender Musculoskeletal Head/Neck/Chest: normocephalic and head atraumatic Skin no rashes, warm and dry Bronze discoloration Neurologic awake; not confused Speech / Cognition: normal speech Psychiatric A+Ox3, euthymic affect Discharge Data Allergies Allergy/AdvReac Type Severity Reaction Status Date / Time No Known Allergies Allergy Verified 01/23/20 21:49 Consultations 01/23/20 21:39 ED Decision to Admit Stat 01/24/20 01:07 Consult Case Management - Discharge Planning Routine Ordered Studies 01/23/20 20:08 CT head/brain wo con Stat 01/23/20 21:39 CT abd pelvis wo con Urgent 01/24/20 00:00 US venous doppler LE BI Urgent Hospital Course (1) Shortness of breath: Unclear etiology at this time but has improved (pt has only attempted minimal activity however) Unable to perform CT angiography PE protocol due to acute kidney injury, however, venous Doppler bilateral lower extremities was negative for DVT. V/Q scan neg for PE ECHO with EF 60-65%, no valvular issues Trop neg x3 EKG WNL x2 CXR neg for acute CT head neg for acute Sx possibly related to markedly elevated iron levels, macrocytic anemia--see below (2) Acute kidney injury superimposed on chronic kidney disease: SHALONDA on CKD/hypertension- Hold HCTZ 12.5mg Improving, only slightly elevated at 1.6 on d/c from 3.8 on admission Pt is drinking well CTAP noted for b/l renal stones Repeat PRP, Mg, Phos on 01/29 (3) Hypertension: Medications as below (4) GERD (gastroesophageal reflux disease): Omeprazole 20 mg p.o. daily (5) Carpal tunnel syndrome: (6) Anemia: Mildly more anemic upon admission with a hemoglobin of 12.4, which may be contributing to his shortness of breath. 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 He states PCP "checks my blood every 6 months" and has increased his iron due to unchanged values. When asked about hemachromatosis, he states he thinks his sister might have this condition. Iron panel is markedly elevated at 187 with a ferritin at 1389. TIBC is low at 182. It seems that pt may be anemic due to folate deficiency rather than iron deficiency given elevated MCV This may be contributing to above sx LFTs WNL Cardiac workup as above HFE testing pending Pt should likely not resume iron testing given above unless actual iron panel is noted for iron deficiency This is likely the cause of pt's above acute concerns Repeat CBC, iron panel in 2 weeks (7) Insomnia: Continue zolpidem (8) Depression: Continue bupropion and duloxetine. (9) Allergic rhinitis: Continue Claritin 10 mg daily (10) Alcohol abuse: Sister apparently called and discussed pt's status with nursing. She states that pt only drinks Reyes Beam and that he has many rx bottles at home that he takes when he thinks he needs something. Pt does admit to drinking a fifth of bourbon daily until about 2 weeks ago. He states he was feeling so poorly that he had no further desire to drink and just stopped one day. He states he had no withdrawal shakes or seizures. He states that he has stopped abruptly in the past and had some shakiness for a few days, but not this time. Monitor B12 is acceptable at 672 If pt resumes alcohol use, would likely benefit from a B complex Thiamine levels pending given weakness, falls Will start thiamine for now as well given long standing alcohol use hx Asked today about pt's plans for alcohol use once he is home from physical rehab. "I don't have a plan." He states that he has no desire to go back to drinking. He states that he drinks because he is bored and "can't do nothing". Apparently he used to walk 9 miles a day, however due to a knee replacement and some other MSK issues he is no longer able. Advised pt that he needs to find some other hobbies to fill his time as his alcohol use was too much to maintain daily. Advised him to explore activities at rehab to start. (11) Weakness: As noted above Likely related to iron overload due to PO iron intake +/- hemachromatosis, folate deficiency, possible thiamine deficiency, alcohol abuse Requesting physical rehab placement on d/c Total Time Total Time Spent Total Time Spent (In Minutes): >30 Total Time Includes: Examination of the Patient, Discharge Planning, Medication Reconciliation, Communication With Other Providers and Other Discharge Plan Discharge Items Patient Disposition: Transfer Inpatient Rehab Fac Reason For Visit: WEAKNESS, SHALONDA Discharge Diagnosis: Weakness, iron overload, folate deficiency Activity: Resume your previous activity Non-emergency contact: Primary Care Provider Call non-emergency contact if: you have any medication questions, your symptoms worsen and your pain is concerning for you Follow-up/Referrals: Jerrica Nguyen PA-C [Primary Care Provider] - Diet: Regular Addtl Attending Provider Instructions: CMP, Magnesium, Phos levels to be checked on 01/29. You should no longer take iron supplements as your body does not process this properly. Your folate levels were low. You should start taking a supplement for this. A good brand is Han grass biomass and you can find it at [employer] for around $5. You likely need to supplement with thiamine (B1). A good brand is Han grass biomass and you can find it at [employer] for around $5. It is not part of a B complex and must be taken separately. Your B12 levels are adequate, but could be better. I recommend a sublingual (under the tongue) form because it is better absorbed. It is a B complex, meaning it has several types of B vitamins in it. A good brand is Han grass biomass and you can find it at [employer] for around $5. Pending Studies at Discharge: Yes Studies:: HFE mutation, thiamine levels Stand-Alone Forms: My [facility] Skilled Items Patient informed of condition?: Yes DNR: No Discharge Level of Care: Acute rehab Communicable Disease: No Discharge Prognosis: Stable Lines: None Urinary Catheter: No Medications and DC Order Prescriptions: New thiamine HCl (vitamin B1) [Vitamin B-1] 100 mg Tablet 100 mg PO QAM Qty: 60 RF: 0 folic acid 1 mg Tablet 1 mg PO QAM Qty: 60 RF: 0 Continued bupropion HCl 150 mg tablet sustained-release 12 hr 150 mg PO QAM RF: 0 aspirin 325 mg Tablet 325 mg PO DAILY RF: 0 metoprolol succinate 50 mg tablet extended release 24 hr 50 mg PO DAILY RF: 0 tramadol 50 mg tablet 100 mg PO Q12H PRN (Reason: Pain) RF: 0 omeprazole 20 mg capsule,delayed release(DR/EC) 20 mg PO DAILY RF: 0 zolpidem 10 mg tablet 10 mg PO HS RF: 0 albuterol sulfate 90 mcg/actuation HFA aerosol inhaler 2 puff inhalation BID PRN (Reason: Shortness Of Breath Or Wheezing) RF: 0 lisinopril 40 mg tablet 40 mg PO DAILY RF: 0 loratadine [Claritin] 10 mg Tablet 10 mg PO DAILY RF: 0 duloxetine 60 mg capsule,delayed release(DR/EC) 60 mg PO DAILY RF: 0 Discontinued ferrous sulfate 325 mg (65 mg iron) tablet 650 mg PO DAILY RF: 0 hydrochlorothiazide 12.5 mg capsule 12.5 mg PO QAM RF: 0 Discharge Orders: Discharge Order (Routine); Ordered 01/26/20 Ordered By: Elodia Jackson Admission Data Admit Date/Time: 01/23/20 23:56 Attending Provider: Elodia Jackson Admit Provider: Beck Rios Primary Care Provider: Jerrica Nguyen Other Providers: Beck Rios ; Minnie Gallagher [place] ; [facility] Other Interventions: Discharge Summary Assessment (RN) Last Done: 01/26/20 13:46 Coding Level of Care Code D/C Day Management >30 mins Diagnoses Shortness of breath R06.02 Acute kidney injury superimposed on chronic kidney disease N17.9; N18.9 Hypertension I10 GERD (gastroesophageal reflux disease) K21.9 Carpal tunnel syndrome G56.00 Anemia D64.9 Insomnia G47.00 Depression F32.9 Allergic rhinitis J30.9 Alcohol abuse F10.10 Weakness R53.1
== END 2020-01-26 16:21 | DRG 204 ==
LOC: ED 19:26 → 2S 23:56 → SUATTDRO 23:56 → 2S 01-24 00:30

== ENCOUNTER 2022-04-27 10:07 | Inpatient (IN) ==
--- NOTE | 2022-02-21 15:47 | Anesthesiology Consultation ---
Date of Service February 21, 2022 Assessment & Plan (1) Encounter for pre-operative examination: Plan - anemia: H&H 02/17, reduction since November 2021. Discussed with Dr. Nixon who advised pt is acceptable, does not need further testing or evaluation prior to surgery. Surgeon's office made aware. - PCP pre-op evaluation 12/26/21: "...pre-op clearance exam...medically cleared at this time to undergo a total L knee..." - cardiology preop evaluation 12/14/21 [place]: "...hemochromatosis, hypertension, GERD, depression, gastric bypass, and osteoarthritis who presents to the clinic for preoperative cardiovascular evaluation prior to left total knee arthroplasty on 12/29/[address] Zelaya. He continues to note exertional shortness of breath with associated chest tightness, which has been ongoing for at least 5 years. His cardiac work-up has been unremarkable, including prior cardiac catheterization in 2016 and recent stress echo in September 2021, and no cardiovascular etiology for his symptoms has been identified. He appears euvolemic on examination today. His blood pressure is adequately controlled. 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 Chart Review Chart Review: Acceptable Risk for Surgery and Patient NOT seen in Pre Admission Testing History Surgery Operation Date: 01/26/22 15:10 Proposed Procedures p Left Total Knee Arthroplasty - Arian Zelaya MD Operation Date: 03/22/22 12:35 Proposed Procedures p Left Total Knee Arthroplasty - Arian Zelaya MD Height/Weight Height: 5 ft 9 in Weight: 90.718 kg Allergies Allergy/AdvReac Type Severity Reaction Status Date / Time No Known Allergies Allergy Verified 02/16/22 15:36 Medications Home Medications Medication Instructions Recorded Confirmed Last Taken bupropion HCl 150 mg tablet,12 hr 150 mg PO QAM 01/23/20 02/16/22 01/23/20 sustained-release duloxetine 60 mg capsule,delayed 60 mg PO QAM 01/23/20 02/16/22 01/23/20 release lisinopril 40 mg tablet 40 mg PO QAM 01/23/20 02/16/22 01/23/20 loratadine 10 mg tablet (Claritin) 10 mg PO QAM 01/23/20 02/16/22 01/23/20 metoprolol succinate 50 mg 50 mg PO QAM 01/23/20 02/16/22 01/23/20 tablet,extended release 24 hr omeprazole 20 mg capsule,delayed 20 mg PO QAM 01/23/20 02/16/22 01/23/20 release tramadol 50 mg tablet 100 mg PO Q12H PRN Pain 01/23/20 02/16/22 Unknown zolpidem 10 mg tablet 10 mg PO HS 01/23/20 02/16/22 01/23/20 folic acid 1 mg tablet 1 mg PO QAM #60 tabs 01/26/20 02/16/22 Unknown montelukast 10 mg tablet 10 mg PO QAM 08/29/21 02/16/22 Unknown (Singulair) fluticasone fur. 100 mcg-umeclid 1 inh inhalation QA 02/16/22 02/16/22 Unknown 62.5 mcg-vilant 25 mcg inhalat.powder (Trelegy Ellipta) Past Medical History Medical History (Updated 02/22/22 @ 09:19 by Brittany Samuel PA-C) Alcohol abuse Anemia pre-op H&H 02/14/22: 02/17 Asthma Depression Elevated LFTs Non fibrotic liver (F1) per 11/23/21 Fibroscan GERD (gastroesophageal reflux disease) Hereditary hemochromatosis Homozygous C282Y mutation Follows with [facility] hematology Routine labs every 3 weeks and therapeutic phlebotomy dependent on labs (most recent phlebotomy 11/2021) History of COVID-19 beginning 01/2022, home test x2 and [facility] pcr test, not hosp; put on paxlovid; severe cough>resolved. Hx of renal calculi No surgical intervention Hypertension Sleep apnea Non-compliant with CPAP Past Surgical History Surgical History History of cardiac cath f/u Dr. Duran, [facility], "had shortness of breath", ~about 5 years ago=no findings History of carpal tunnel release R/L History of lumbar fusion x3-4 Hx of colonoscopy Hx of fusion of cervical spine x3 Hx of total knee replacement Right Social History Smoking Status: Never smoker Do You Dip or Chew Tobacco: No Hx Alcohol Use: Yes Alcohol type: hard liquor alcohol intake frequency: 3 or more drinks per day Hx Substance Use: No substance use type: does not use Testing Laboratory Results 02/14/2022 WBC: 5.3 H/H: 02/17 PLATELETS: 231 SODIUM: 138 POTASSIUM: 4 CHLORIDE: 108 CO2: 24 BUN: 17 CREATININE: 1.1 GLUCOSE: 85 PT: 9.7 PTT: 24 INR: 0.9 A1c: 5.4% UA: yellow, clear, negative. Urine culture: < 10,000 mixed bacterial audrey TYPE AND SCREEN: O positive, negative antibody screen Electrocardiogram Date: 12/09/21 NSR, rate 78 bpm Nonspecific T wave abnormality Echocardiogram Date: 01/24/20 EF 60-65% No regional wall motion abnormalities No LVH No significant valvular abnormalities Type 1 diastolic dysfunction Stress Test Date: 10/11/21 Exercise METS 5.5 MPHR 82% Negative for ischemia EF 55-60% Mild cLVH LA mildly dilated Other Testing Chest CT 04/18/21 Small hypodense nodules in the thyroid gland with the largest 1 in the right lobe measuring 6 mm Bilateral basilar atelectasis Relative elevation of the right hemidiaphragm Small calcified subcarinal lymph nodes Evidence of lower cervical spine surgery Diffuse degenerative changes of thoracic spine Mild compression deformity of some of the mid to lower thoracic vertebra. Degenerative changes in the shoulder joints Healed fractures of the posterolateral aspect of the 6th and 7th left ribs. Healed fracture of the anterolateral aspect of the 8 left rib No significant abnormality related to acute trauma Old left sided rib fractures Abdomen pelvis CT 04/18/21 No significant abnormalities related to acute trauma, except for possible subcutaneous inflammatory change in the right lower buttock area Evidence of prior gastric and bowel surgery question gastric bypass surgery and other surgical interventions involving small bowel
--- NOTE | 2022-03-05 08:32 | History & Physical Report ---
Date of Service March 05, 2022 Assessment & Plan (1) Primary osteoarthritis of left knee: Plan: Treatment options discussed with patient. He has failed conservative measures and would like to proceed with surgical intervention. Risks, benefits and alternatives to surgery including but not limited to infection, DVT, pain, stiffness, need for revision surgery, damage to blood vessels, damage to nerves, PE, , were discussed with the patient and they wish to proceed. Plan on left total knee arthroplasty scheduled for [facility] on March [address] Zelaya. Plan on HHPT post op. Will plan on aspirin 81mg BID x 1 mo post op for DVT prophylaxis. All questions answered. F/u post op. History of Present Illness Chief Complaint: Left knee pain Primary Care Provider: Jerrica Nguyen 71yo male with PMHx significant for HTN, asthma, LOLY, elevated LFTs who presents with ongoing left knee pain. Pain is interfering with his daily activities. He has failed conservative measures and would like to proceed with surgical intervention. Patient denies headaches, sweats, fevers, chills, double vision, blurred vision, cough, sore throat, dysphagia, chest pain, sob, wheezing, n/v/d/c, numbness, tingling, fatigue, urinary symptoms, mood disorders. ROS positive for left knee pain and stiffness. Allergies Allergy/AdvReac Type Severity Reaction Status Date / Time No Known Allergies Allergy Verified 02/16/22 15:36 Home Medications Medication Instructions Recorded Confirmed Type bupropion HCl 150 mg tablet,12 hr 150 mg PO QAM 01/23/20 02/16/22 History sustained-release duloxetine 60 mg capsule,delayed 60 mg PO QAM 01/23/20 02/16/22 History release lisinopril 40 mg tablet 40 mg PO QAM 01/23/20 02/16/22 History loratadine 10 mg tablet (Claritin) 10 mg PO QAM 01/23/20 02/16/22 History metoprolol succinate 50 mg 50 mg PO QAM 01/23/20 02/16/22 History tablet,extended release 24 hr omeprazole 20 mg capsule,delayed 20 mg PO QAM 01/23/20 02/16/22 History release tramadol 50 mg tablet 100 mg PO Q12H PRN Pain 01/23/20 02/16/22 History zolpidem 10 mg tablet 10 mg PO HS 01/23/20 02/16/22 History folic acid 1 mg tablet 1 mg PO QAM #60 tabs 01/26/20 02/16/22 Rx montelukast 10 mg tablet 10 mg PO QAM 08/29/21 02/16/22 History (Singulair) fluticasone fur. 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 Hx of renal calculi No surgical intervention Hypertension Sleep apnea Non-compliant with CPAP Surgical History History of cardiac cath f/u Dr. Duran, [facility], "had shortness of breath", ~about 5 years ago=no findings History of carpal tunnel release R/L History of lumbar fusion x3-4 Hx of colonoscopy Hx of fusion of cervical spine x3 Hx of total knee replacement Right Social History Smoking Status: Never smoker Second Hand Exposure: No; Hx Alcohol Use: Yes Alcohol type: hard liquor Hx Substance Use: No Preferred Language: Hebrew Communication Ability: Effective Upfitter Required: No Beliefs That Will Affect Care: None marital status: Current Living Situation: Spouse Feels Safe at Home: Yes Assistive Devices: None Review of Systems All systems reviewed & are unremarkable except as noted in HPI & below Physical Exam Constitutional: well developed and well nourished; no acute distress Eyes: PERRL, conjunctivae normal, anicteric sclerae ENMT: external ear and nose normal, oropharynx normal Neck: trachea midline, no thyromegaly Respiratory: normal respiratory effort, lungs clear to auscultation Cardiovascular: RRR, no murmur, no edema Musculoskeletal: Alessio knee: Varus alignment. Moderate effusion. Tendenress medial and lateral joint line. Positive dea's. Guarded Elmer's. Stable to valgus and varus stress. ROM 0-120 degrees. Skin: no rashes, warm and dry Neurologic: patellar DTR's 2+ bilat, sensation intact Psychiatric: A+Ox3, euthymic affect Results & Data ([facility]) Diagnostic Findings Left knee: Severe endstage tricompartmental arthritis bone on bone medial compartment with subluxation of femur on tibia
--- NOTE | 2022-04-25 15:44 | History & Physical Report ---
Date of Service April 25, 2022 Assessment & Plan (1) Primary osteoarthritis of left knee: Plan: Treatment options discussed with patient. He has failed conservative measures and would like to proceed with surgical intervention. Risks, benefits and alternatives to surgery including but not limited to infection, DVT, pain, stiffness, need for revision surgery, damage to blood vessels, damage to nerves, PE, , were discussed with the patient and they wish to proceed. Plan on left total knee arthroplasty scheduled for [facility] on April [address] Zelaya. Plan on HHPT post op. Will plan on aspirin 81mg BID x 1 mo post op for DVT prophylaxis. All questions answered. F/u post op. History of Present Illness Chief Complaint: Left knee pain Primary Care Provider: Jerrica Nguyen 71yo male with PMHx significant for HTN, asthma, LOLY, elevated LFTs who presents with ongoing left knee pain. Pain is interfering with his daily activities. He has failed conservative measures and would like to proceed with surgical intervention. Patient denies headaches, sweats, fevers, chills, double vision, blurred vision, cough, sore throat, dysphagia, chest pain, sob, wheezing, n/v/d/c, numbness, tingling, fatigue, urinary symptoms, mood disorders. ROS positive for left knee pain and stiffness. Allergies Allergy/AdvReac Type Severity Reaction Status Date / Time No Known Allergies Allergy Verified 04/21/22 14:40 Home Medications Medication Instructions Recorded Confirmed Type bupropion HCl 150 mg tablet,12 hr 150 mg PO QAM 01/23/20 04/21/22 History sustained-release duloxetine 60 mg capsule,delayed 60 mg PO QAM 01/23/20 04/21/22 History release lisinopril 40 mg tablet 40 mg PO QAM 01/23/20 04/21/22 History loratadine 10 mg tablet (Claritin) 10 mg PO QAM 01/23/20 04/21/22 History metoprolol succinate 50 mg 50 mg PO QAM 01/23/20 04/21/22 History tablet,extended release 24 hr omeprazole 20 mg capsule,delayed 20 mg PO QAM 01/23/20 04/21/22 History release tramadol 50 mg tablet 100 mg PO Q12H PRN Pain 01/23/20 04/21/22 History zolpidem 10 mg tablet 10 mg PO HS 01/23/20 04/21/22 History folic acid 1 mg tablet 1 mg PO QAM #60 tabs 01/26/20 04/21/22 Rx montelukast 10 mg tablet 10 mg PO QAM 08/29/21 04/21/22 History (Singulair) fluticasone fur. 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 Hx of renal calculi No surgical intervention Hypertension Sleep apnea Non-compliant with CPAP Surgical History History of cardiac cath f/u Dr. Duran, [facility], "had shortness of breath", ~about 5 years ago=no findings History of carpal tunnel release R/L History of lumbar fusion x3-4 Hx of colonoscopy Hx of fusion of cervical spine x3 Hx of total knee replacement Right Social History Smoking Status: Never smoker Second Hand Exposure: No; Hx Alcohol Use: Yes Alcohol type: hard liquor Hx Substance Use: No Preferred Language: Greenlandic Communication Ability: Effective Casing Splitter Required: No Beliefs That Will Affect Care: None marital status: Current Living Situation: Spouse Feels Safe at Home: Yes Assistive Devices: None Review of Systems All systems reviewed & are unremarkable except as noted in HPI & below Physical Exam Constitutional: well developed and well nourished; no acute distress Eyes: PERRL, conjunctivae normal, anicteric sclerae ENMT: external ear and nose normal, oropharynx normal Neck: trachea midline, no thyromegaly Respiratory: normal respiratory effort, lungs clear to auscultation Cardiovascular: RRR, no murmur, no edema Musculoskeletal: Alessio knee: Varus alignment. Moderate effusion. Tendenress medial and lateral joint line. Positive dea's. Guarded Elmer's. Stable to valgus and varus stress. ROM 0-120 degrees. Skin: no rashes, warm and dry Neurologic: patellar DTR's 2+ bilat, sensation intact Psychiatric: A+Ox3, euthymic affect Results & Data ([facility]) Diagnostic Findings Left knee: Severe endstage tricompartmental arthritis bone on bone medial compartment with subluxation of femur on tibia
[~2022-04-27 10:07] MED LIST changes: +ACETAMINOPHEN 500 MG TAB PO SCH; -ASPEC325 PO; +BUPIVACAINE 0.25% 30 ML VIAL ONE; +BUPIVACAINE 0.5 % 5 MG/1 ML PF 10ML VIAL ONE; -BUPR-79 PO; -CLB200 PO; -CYM/30 PO; +CeleBREX 200 MG CAP PO SCH; +DEXAMETHASONE SOD INJ 4 MG/ML VIAL ONE; +EPINEPHrine INJ 1 MG/ML AMP ONE; +FAMOTIDINE 20 MG TAB PO SCH; +GABAPENTIN 300 MG CAP PO SCH; -LISI10TA PO; +LR 500ML BOLUS, THEN 15ML/HR IV SCH; +METOCLOPRAMIDE HCL 10 MG TABLET PO SCH; +MIDAZOLAM HCL 1 MG/ML 2ML VIAL ONE; -OMEP20CA9 PO; -OXYSR10 PO; +ROPIVACAINE 0.5% HCL/PF 150 MG, BUPIVACAINE 0.75% MPF 20 ML, EPINEPHrine 30MG/30ML (OR ... INSTIL SCH; -RXC5 PO; +TRANEXAMIC ACID 1,000 MG **IV Intra-op IV SCH; +TRANEXAMIC ACID 1,000 MG **IV Pre-op IV SCH; -ZOLP10TA PO; +ceFAZolin 2000MG 2,000 MG/15 ML SYR IV SCH; +dexAMETHasone 4 MG TAB PO SCH; +fentaNYL citrate 100 MCG/2 ML VIAL ONE
[2022-04-27] MEDS ORDERED: ROCURONIUM BROMIDE 10 MG/ML 5 ML VIAL IV ONE (10:35)
[2022-04-27] MEDS ORDERED: PROPOFOL IV EMULSION 10 MG/ML 20 ML VIAL IV ONE ×4 (10:35→13:24)
--- NOTE | 2022-04-27 11:15 | History & Physical Bridge Note ---
Date of Service April 27, 2022 History & Physical Bridge Note I have examined the patient, reviewed the History & Physical and in the interval since the performance of the History & Physical I have noted the following changes of clinical significance: no changes noted
[2022-04-27] MEDS ORDERED: SUGAMMADEX SODIUM 200 MG/2 ML VIAL IV ONE (11:56)
[2022-04-27] MEDS ORDERED: ORTHO JOINT ANESTHETIC ONE (12:40)
[2022-04-27] MEDS ORDERED: ePHEDrine sulfate 50 MG/ML SYR ONE (13:18)
[2022-04-27] MEDS ORDERED: MIDAZOLAM HCL 1 MG/ML 2ML VIAL ONE (14:17)
--- NOTE | 2022-04-27 15:29 | Operative Report ---
Post Operative Report Pre & Post Diagnosis Operation Date: 01/26/22 15:10 <No data on this case meets the specified criteria> Operation Date: 04/27/22 12:20 Pre-Op Diagnosis: Primary osteoarthritis of left knee Post-Op Diagnosis: Primary osteoarthritis of left knee I identified the patient and participated in the time-out.: Yes Procedure Operation Date: 01/26/22 15:10 <No data on this case meets the specified criteria> Operation Date: 04/27/22 12:20 Actual Procedures p Left Total Knee Arthroplasty(Left), lateral release, excision small popliteal cyst and complex synovial cyst lateral joint line and excision multiple loose bodies, sondra and Acticoat superficial wound VAC- Arian Zelaya MD Surgeon Arian Zelaya MD Detasseler Zelalem MIRANDA Estimated Blood Loss 5 Findings See Below Severe tricompartmental osteoarthritis with multiple loose bodies small popliteal cyst and large complex lateral synovial cyst, chronic ACL tear, chronic synovitis, chronic medial meniscus tear, bone loss medial compartment Specimens Bone cuts Drains 2 Hemovac Anesthesia Type MAC Spinal Regional Complications none Disposition Disposition: Recovery Room Indications 71-year-old male with severe end-stage osteoarthritis of the left knee with tricompartmental disease [id number] medial compartment patellofemoral joint massive osteophytes loose bodies and bone loss in medial compartment with previous successful right knee replacement in the past. Description of Procedure The patient was taken to the operating room and anesthetized under spinal MAC regional block. Patient was placed supine on the the operating table. A pneumatic tourniquet was placed about the left upper thigh. The knee exam demonstrated range of motion 15 through 125 degrees small effusion no pseudolaxity with a stiff markedly varus knee. The involved leg was elevated exsanguinated with Esmarch bandage and the pneumatic tourniquet was raised to 325 millimeters mercury. A longitudinal incision was made across the anterior knee. Skin flaps were elevated. An incision was made into the medial retinaculum and extended up into the mid third of the quadriceps tendon and extended down to the tibial tubercle. Intra-articular findings demonstrated eburnated bone medial compartment with bone loss on the tibia and femoral condyle. There was ridging and eburnation. There were massive tricompartmental osteophytes [id number] and patellofemoral joint lateral tracking patella. There were loose bodies in the posterior joint and suprapatellar region and embedded into the VMO area subsynovial. There was chronically thickened synovium throughout the joint. This was most notable in the suprapatellar pouch area. There is a chronic ACL tear and a macerated degenerated medial meniscus tear. Posterior to the PCL there was a 1 x 2 mm popliteal cyst within the synovium. Adjacent to the popliteus tendon and adjacent to the lateral fibular collateral ligament there was a very large complex lateral meniscus cysts synovial type cyst at least 2 x 3 cm in size with jellylike material within it. There was degeneration of the popliteus tendon. There were very large patellofemoral osteophytes. The knee was exposed by excising the posterior cruciate ligament and meniscus remnants. The cyst was posterior to the PCL this was resected carefully. The synovial cyst was decompressed and as much of the cyst removed as possible with dissection and a rongeur. The infrapatellar fat pad was resected. The fat pad over the anterior femur which was thickened and scarred at the upper aspect of the articular surface was resected for placement of the component in that area. A subperiosteal peel lateral release was performed around the patella initially. Multiple loose bodies were resected including the loose body in the VMO area that was shelled out of the muscle. The [facility] total knee arthroplasty system was utilized for the procedure. The custom femoral cutting guide was pinned in position. The distal femoral cut was made. The size 8, 5 in 1 cutting block was placed. The anterior posterior and chamfer cuts were made. The knee was extended and a free hand cut technique was performed to the patella. The patella with was measured and the width was reproduced using a 38 symmetrical patella component. 3 drill holes are made for the patella component pegs. The tibia was then subluxed. The custom tibial cutting block had a suboptimal fit so an external tibial cutting guide was pinned in position and the proximal tibial cut was made with the oscillating saw. Cut was made a perpendicular cut to the long axis of the tibia and placed in appropriate posterior slope. Cut was made just at the level of the most deficient medial side. Ligaments were balanced in extension and flexion. This required removing some medial and posterior medial osteophytes and medial tibia medial posterior medial release off the tibia. Large posterior femoral condyle osteophytes were resected with a curved osteotome and angled curette. The size 7 left tibial trial was externally rotated in line with the tibial tubercle and pinned in position. The punch for the stem was used. The femoral trial was inserted and centered the notch cutting devices were used and the collet was placed. Tibial trials were used for the insert. The size 13 trial gave balanced ligaments through full range of motion. Patella tracking was assessed with range of motion. The patella tracked with some lateral tilt so had to do a formal lateral release but left the synovium intact and the patella tracked centrally subsequently.. The trials were removed. The Orthomix anesthetic cocktail was injected per protocol. The cut bone surfaces and soft tissue were copiously irrigated with pulsatile lavage saline solution. The final components were cemented with Refobacin cement. The final components were [employer] 2.0 posterior stabilized 8 left femur component, 7 left tibial component, 13 mm left posterior stabilized polyethylene insert and a 38 symmetrical patella. After the cement cured, the Betadine soak was used for 3 minutes. The knee was then copiously irrigated with pulsatile lavage saline solution. 2 drains were brought out laterally con nected to Hemovac. The quadriceps tendon and medial retinaculum were closed with interrupted [id number] #1 Vicryl sutures. The knee was taken through full range of motion and repair was secure. Knee range of motion was 0 through 130 degrees stability through full range of motion. the subcutaneous tissues were closed with 2-0 Vicryl sutures. The skin was closed with shoshana. A sondra and Acticoat superficial wound VAC was applied. The tourniquet was let down and the patient had good capillary refill to the extremity. The patient tolerated the procedure well. My physician radiology assistant Zelalem MIRANDA participated as materials assistant and was integral part in all aspects of the procedure including prepping, draping, leg positioning, soft tissue retraction, instrument management and assisted in the closure, application superficial wound VAC,dressings application and will participate in postoperative care the patient. I attest to the content of the Intraoperative Record and any orders documented therein. Any exceptions are noted below.
--- NOTE | 2022-04-27 16:15 | Anesthesiology Progress Note ---
Date of Service April 27, 2022 Anesthesia Post Procedure Vital Signs Vital Signs: Temp Pulse Resp BP Pulse Ox O2 Del Method 04/27/22 16:05 75 17 153/89 H 99 Room Air 04/27/22 15:55 72 17 159/96 H 97 Room Air 04/27/22 15:48 36.6 C 79 16 152/100 H 99 Room Air 04/27/22 10:31 36.5 C 79 22 153/88 H 98 Room Air Transfer of Care Handoff Completed per policy Notes Mental Status: alert / awake / arousable Patient Amnestic to Procedure: Yes Nausea / Vomiting: adequately controlled Pain: adequately controlled Airway Patency, RR, SpO2: stable & adequate BP & HR: stable & adequate Hydration State: stable & adequate Neuraxial Anesthesia: was administered and sensory block is resolving Anesthetic Complications: no major complications apparent and Pt Satisfied with anesthetic care
--- NOTE | 2022-04-27 16:34 | XRay Report ---
XR knee LT 1 or 2V routine CLINICAL HISTORY: Surgical Post Op TECHNIQUE: 2 views of the left knee were obtained. Comparison: None available at the time of this dictation. FINDINGS: Patient is status post total knee arthroplasty with expected postsurgical changes including soft tiss ue swelling and subcutaneous emphysema. No periarticular lucency or hardware fracture is seen. IMPRESSION: Expected postoperative appearance status post placement of total knee arthroplasty. ACT 112: Negative or not required by law. Electronically signed by: Desmond Garcia M.D. 04/27/2022 4:33 PM
[2022-04-27] MEDS ORDERED: bisacodyL 10 MG SUPP PR PRN (16:47)
[2022-04-27] MEDS ORDERED: MAGNESIUM HYDROXIDE SUSP 30 ML UDC PO PRN (16:47)
[2022-04-27] MEDS ORDERED: NALOXONE HCL 0.4 MG/1 ML VIAL/CARP IV PRN (16:47)
[2022-04-27] MEDS ORDERED: METOCLOPRAMIDE HCL INJ 5 MG/ML 2 ML VIAL IV PRN (16:47)
[2022-04-27] MEDS ORDERED: ONDANSETRON INJ 2 MG/ML 2 ML VIAL IV PRN (16:47)
--- NOTE | 2022-04-27 17:19 | Hospitalist Consultation ---
Date of Consultation April 27, 2022 Assessment & Plan (1) Primary osteoarthritis of left knee: - POD #0, EBL 5 cc, no complications. - Pain/ABX/IVF/diet/drain management/transfusion needs/activity per primary team - Rescue Narcan ordered for over sedation PRN - VTE prophylaxis per primary service- SCDs in place - CBC and BMP in AM. - Baseline renal function: Cr 1.35 in November - Baseline Hgb: 11.4 in November (2) Alcohol abuse: - Documented history of alcohol abuse, patient estimates that he drinks one-half of a fifth of liquor each night. Last drink was last night around 9 PM. He has never been hospitalized for withdrawal seizures and to the best of his knowledge has not experienced withdrawal symptoms however unknown last time he's gone a prolonged period without drinking. - AWSS at risk protocol. Thiamine and folate supplementation. (3) Hypertension: - Continue metoprolol as prescribed, attempt to hold lisinopril on POD #2, however if patient very hypertensive tomorrow, would be able to resume it then as long as his renal function is stable on BMP. (4) Shortness of breath: - As reported history of shortness of breath with exertion, Reviewed most recent cardiology note, they do not feel that his ongoing shortness of breath is cardiac in nature. He was cleared for surgery. Results of testing below. - He is several hours postop and transition to room air, 98%. - Continue Trelegy inhaler daily. 1. Cardiac catheterization November 06, 2016: Essentially normal coronary arteries. Normal intracardiac filling pressures. No pulmonary hypertension. Preserved cardiac output. 2. Echocardiogram November 06, 2016: normal left ventricular systolic function without valvular pathology. 3. Stress echo October 11, 2021: Negative for ischemia at 82% MPHR and 5.5 METS. Resting echo with normal LV systolic function. No significant valvular abnormality. (5) Depression: - Continue Wellbutrin and Cymbalta. (6) Insomnia: - Continue Ambien at night. Has been on this for years. (7) Anemia: - Reported history of, baseline Hgb was 11.4 in November, there are no more recent labs for review. - EBL 5 cc, repeat CBC in a.m. monitor for acute blood loss anemia. (8) GERD (gastroesophageal reflux disease): - Continue PPI, switch Prilosec to hospital formulary Protonix. Plan - Admitted to med/surg post-op by primary team. - SCDs, ASA 81 BID ordered for VTE ppx as ordered by primary team. - Full Code. Assessment and plan discussed with my attending physician, Dr. Monaco. Please refer to his addendum for further clarification and/or changes to plan. Supervising Physician Co-Signing Physician Notes Patient seen and examined, chart reviewed, case discussed with Sharon Sanchez PA-C and I agree with the assessment and plan as above except as otherwise noted Labs and images reviewed Juan José is a 71-year-old male with past medical history of HH, daily alcohol use, hypertension, GERD, asthma who underwent left TKA scheduled on 04/27. We have been consulted for postoperative medication management. Patient doing well postoperatively. N Patient reports that he drinks one half of 1/5 of liquor daily, up to /5. Has not had any alcohol free days recently last drink 04/26. Patient has never had withdrawal symptoms, tremors, seizure, or hallucinations but note his brother who drinks a similar amount went through severe DTs after being in the hospital for 3 days for surgery. Patient is not sure if he would or is interested in cutting back, would consider trying this at home. Patient reports he will discuss this with his primary care provider; discussed that rapid changes in alcohol consumption or sudden abstinence can provoke withdrawals symptoms which can be life-threatening or fatal. At time assessment patient seems contemplative/preparatory with regard to stage of change. patient expresses an understanding of this, if he decides to cut back on alcohol he reach out to his PCP for assistance and if he at any point develops tremors, rapid heart rate, hallucinations, or signs of withdrawal will contact his PCP or 911 for evaluation. Does not have any history of heart failure, decompensated cirrhosis, epilepsy/seizure, psychosis, benzodiazepine use disorder precluding ambulatory management of alcohol withdrawal; however he is at high risk and a taper should be done closer visitation with his PCP and should he develop moderate or severe symptoms by CIWA scaling should return to the ER for inpatient management of alcohol withdrawal. At the bedside assessment he is comfortable, has no fever/chills/sweats, no tremors. Is eating dinner and reports he feels "good ". He has no pain in his left knee, surgical drain is in place draining sanguinous material. Heart rate is regular, lungs are clear. S/p DKA: DVT prophylaxis, pain control, activity per primary team. Doing well postop Daily alcohol use: Patient with up to one half 1/5/day of alcohol intake. Is at risk for withdrawal symptoms. At risk protocol. Time assessment no tremors, hallucinations, tachycardia. AntiBac/thiamine/folate as above COPD: Continue Trelegy formulary equivalent Depression: Continue duloxetine, bupropion Hypertension: Continue metoprolol, adequate control at bedside. Heart rate regular. No history of A. fib Agree with management above. History of Present Illness Reason for Consultation: post-op medication management Requesting Physician: Arian Zelaya MD Attending Physician: Arian Zelaya MD History of Present Illness Juan José Nixon is a 71-year-old male with past medical history significant for hereditary hemochromatosis, alcohol use disorder, hypertension, GERD, asthma, anemia, and depression who was admitted today, 04/27 for a left TKA with Dr. Zelaya. Hospitalist group was consulted for post-operative medication management. Today, he is POD#0 and feels well. At the time of my visit he is resting comfortably in bed, watching the evening news. Has regained sensation in his legs, moving both without pain. Voicing no complaints or questions. Denies fever/chills, weakness, chest pain, palpitations, shortness of breath, cough, orthopnea, abdominal pain, nausea, vomiting. Allergies Allergy/AdvReac Type Severity Reaction Status Date / Time No Known Allergies Allergy Verified 04/27/22 10:27 Home Medications Medication Instructions Recorded Confirmed Type bupropion HCl 150 mg tablet,12 hr 150 mg PO QAM 01/23/20 04/27/22 History sustained-release duloxetine 60 mg capsule,delayed 60 mg PO QAM 01/23/20 04/27/22 History release lisinopril 40 mg tablet 40 mg PO QAM 01/23/20 04/27/22 History loratadine 10 mg tablet (Claritin) 10 mg PO QAM 01/23/20 04/27/22 History metoprolol succinate 50 mg 50 mg PO QAM 01/23/20 04/27/22 History tablet,extended release 24 hr omeprazole 20 mg capsule,delayed 20 mg PO QAM 01/23/20 04/27/22 History release tramadol 50 mg tablet 100 mg PO Q12H PRN Pain 01/23/20 04/27/22 History zolpidem 10 mg tablet 10 mg PO HS 01/23/20 04/27/22 History montelukast 10 mg tablet 10 mg PO QAM 08/29/21 04/27/22 History (Singulair) fluticasone fur. 100 mcg-umeclid 1 inh inhalation QAM 02/16/22 04/27/22 History 62.5 mcg-vilant 25 mcg inhalat.powder (Trelegy Ellipta) Patient History Medical History Alcohol abuse Anemia pre-op H&H 02/14/22: 02/17 Asthma Depression Elevated LFTs Non fibrotic liver (F1) per 11/23/21 Fibroscan GERD (gastroesophageal reflux disease) Hereditary hemochromatosis Homozygous [id number] mutation Follows with [facility] hematology Routine labs every 3 weeks and therapeutic phlebotomy dependent on labs (most recent phlebotomy 11/2021) History of COVID-19 beginning 01/2022, home test x2 and [facility] pcr test, not hosp; put on paxlovid; severe cough>resolved. Hx of renal calculi No surgical intervention Hypertension Sleep apnea Non-compliant with CPAP Surgical History History of cardiac cath f/u Dr. Duran, [facility], "had shortness of breath", ~about 5 years ago=no findings History of carpal tunnel release R/L History of lumbar fusion x3-4 Hx of colonoscopy Hx of fusion of cervical spine x3 Hx of total knee replacement Right Social History Smoking Status: Never smoker Second Hand Exposure: No; Do You Dip or Chew Tobacco: No; Tobacco Cessation Education Requested by Patient: No Hx Alcohol Use: Yes Alcohol type: hard liquor Hx Substance Use: No Preferred Language: Khmer Communication Ability: Effective Help Desk Support Specialist Required: No Beliefs That Will Affect Care: None marital status: Current Living Situation: Spouse Other Information That Helps Us Care for You: No Feels Safe at Home: Yes Safety Concerns: Feels Safe At This Time Assistive Devices: None Review of Systems Review of Systems: Constitutional: No fever, sweats or chills Eyes: No diplopia, no worsening or blurred vision ENT: normal hearing, no trouble swallowing Respiratory: No cough, sputum, dyspnea at rest or on exertion Cardiovascular: No chest pain, tightness or palpitations Abdomen: No pain, nausea, vomiting, diarrhea or constipation Musculoskeletal: No joint pain, calf pain, swelling Neurologic: No weakness, numbness/tingling, or balance problems Psychiatric: No anxiety or depression Skin: No rash or itch Physical Exam Physical Exam: General: awake, alert, no apparent distress Head: Normocephalic, atraumatic ENT: PERRL, EOMI, no pharyngeal exudate, mucous membranes moist Chest: Clear to auscultation, on room air, no adventitious breath sounds Cardiac: Regular rate and rhythm, no murmur, no JVD, normal peripheral pulses, good capillary refill Abdominal: NABS x 4 quadrants, soft, nontender to palpation, no rebound, gua rding or tenderness Extremities: Normal inspection, no peripheral edema or erythema, calfs nontender to palpation Psych: Normal mood and affect Neuro: AAO x 3, strength intact bilaterally and rated 5/5, no motor deficits, speech is clear, no peripheral sensory deficits Skin: no rash or erythema Results & Data Results & Data ([facility]) Vital Signs (Past 12 Hours) Vital Signs Temp Pulse Pulse Resp BP Pulse Ox O2 Del Method 04/27/22 16:40 36.5 C 74 15 160/86 H 99 Room Air 04/27/22 16:25 76 12 158/90 H 100 Room Air 04/27/22 16:15 36.4 C L 70 18 154/93 H 99 Room Air 04/27/22 16:05 75 17 153/89 H 99 Room Air 04/27/22 15:55 72 17 159/96 H 97 Room Air 04/27/22 15:48 36.6 C 79 16 152/100 H 99 Room Air 04/27/22 10:31 36.5 C 79 22 153/88 H 98 Room Air Diagnostic Findings Knee X-Ray 04/27/22 15:53 XR knee LT 1 or 2V routine CLINICAL HISTORY: Surgical Post Op TECHNIQUE: 2 views of the left knee were obtained. Comparison: None available at the time of this dictation. FINDINGS: Patient is status post total knee arthroplasty with expected postsurgical changes including soft tissue swelling and subcutaneous emphysema. No p eriarticular lucency or hardware fracture is seen. IMPRESSION: Expected postoperative appearance status post placement of total knee arthroplasty. ACT 112: Negative or not required by law. Electronically signed by: Desmond Garcia M.D. 04/27/2022 4:33 PM PG Care Time/CCT Total # of Minutes Spent Total Time Spent with Patient: Total time spent is greater than 50% in coordination of care (as documented) at patient's floor/unit and/or counseling patient: Coding Level of Care Code 16425 Inpt Consult Level 3 Diagnoses Primary osteoarthritis of left knee M17.12 Alcohol abuse F10.10 Hypertension I10 Shortness of breath R06.02 Depression F32.9 Insomnia G47.00 Anemia D64.9 GERD (gastroesophageal reflux disease) K21.9
[2022-04-27] MEDS ORDERED: LORazepam 1 MG TAB PO PRN (17:47)
[2022-04-27] MEDS: FOLIC ACID 1 MG TAB PO SCH (18:25)
[2022-04-27] MEDS: THIAMINE HCL 100 MG TAB PO SCH (18:25)
[2022-04-27] MEDS: SODIUM CHLORIDE 0.9% 1000ML 1,000 ML IV SCH ×2 (18:25→20:11)
[2022-04-27] MEDS: DOCUSATE SODIUM 100 MG CAP PO SCH (20:13)
[2022-04-27] MEDS: SENNA 8.6 MG TAB PO SCH (20:13)
[2022-04-27] MEDS: ASPIRIN 81 MG ECTAB PO SCH (20:14)
[2022-04-27] MEDS: CeleBREX 200 MG CAP PO SCH (20:14)
[2022-04-27] MEDS: ACETAMINOPHEN 500 MG TAB PO SCH (21:31)
[2022-04-27] MEDS: ceFAZolin 2000MG 2,000 MG/15 ML SYR IV SCH (21:33)
[2022-04-27] MEDS: ZOLPIDEM TARTRATE 10 MG TAB PO SCH (23:27)
[2022-04-28 06:11] LABS: Hematocrit (blood only) 21.8 % (40.1-51.0); Hemoglobin 7.3 g/dl (14.0-18.0); Mean Corpuscular Hemoglobin 33.2 pg (25.0-34.0); Mean Corpuscular Hgb Conc 33.5 g/dL (32.0-36.0); Mean Corpuscular Volume 99.1 fL (80.0-100.0); Mean Platelet Volume 9.3 fL (9.4-12.4); Platelet Count 163 K/uL (130-400); RDW Coefficient of Variation 13.4 % (11.5-14.5); RDW Standard Deviation 48.2 fL (36.4-46.3); White Blood Count 8.12 K/ul (4.8-10.8)
[2022-04-28] MEDS: ACETAMINOPHEN 500 MG TAB PO SCH ×3 (06:13→20:54)
[2022-04-28] MEDS: ceFAZolin 2000MG 2,000 MG/15 ML SYR IV SCH (06:13)
[2022-04-28 06:49] LABS: Calcium 7.9 mg/dl (8.5-10.1); Creatinine Clr Calc Pharmacy 54.1 ml/min; Est GFR (African American) 55.6 ml/min; Potassium 4.8 mmol/L (3.5-5.1)
[2022-04-28] MEDS ORDERED: lisinopril 40 MG TAB PO SCH (09:00)
[2022-04-28] MEDS: CeleBREX 200 MG CAP PO SCH ×2 (09:12→20:53)
[2022-04-28] MEDS: ASPIRIN 81 MG ECTAB PO SCH ×2 (09:12→20:53)
[2022-04-28] MEDS: DOCUSATE SODIUM 100 MG CAP PO SCH ×2 (09:12→20:54)
[2022-04-28] MEDS: buPROPion SR 150 MG TABCR PO SCH (09:13)
[2022-04-28] MEDS: MONTELUKAST SODIUM 10 MG TABLET PO SCH (09:13)
[2022-04-28] MEDS: LORATADINE 10 MG TAB PO SCH (09:14)
[2022-04-28] MEDS: FOLIC ACID 1 MG TAB PO SCH (09:14)
[2022-04-28] MEDS: DULoxetine HCL 60 MG CAP PO SCH (09:14)
[2022-04-28] MEDS: PANTOprazole 40 MG TAB PO SCH (09:15)
[2022-04-28] MEDS: UMECLIDINIUM/VILANTEROL 62.5/25MCG 7 PUFFS/INHALER INH SCH (09:15)
[2022-04-28] MEDS: METOPROLOL SUCC 50MG EXT REL TAB PO SCH (09:15)
[2022-04-28] MEDS: MULTIVITAMIN TAB PO SCH (09:15)
[2022-04-28] MEDS: THIAMINE HCL 100 MG TAB PO SCH (09:16)
[2022-04-28] MEDS: FLUTICASONE FUROATE 100MCG 14 PUFFS/INHALER INH SCH (09:16)
--- NOTE | 2022-04-28 09:45 | Orthopedic Progress Note ---
Date of Service April 28, 2022 Assessment & Plan (1) Primary osteoarthritis of left knee: Plan: Postop day 1 status post left total knee arthroplasty PT/OT protocols. Weightbearing as tolerated. DVT prophylaxis-aspirin p.o. twice daily, SCDpatt, OWEN meza. Pain management as written. Acute blood loss anemia-hemoglobin 7.3 this morning. We will see how he progresses with his physical therapy. Creatinine slightly increased this morning as well. We will continue to follow. Plan for repeat labs tomorrow morning. Appreciate hospitalist input. DC planning-patient is planning for home health services upon discharge. Admission and Anticipated Discharge Date Admission Date: April 27, 2022 Subjective Postop day 1 Patient sitting up in bed finishing his breakfast. No complaints this morning. Pain is controlled. States he had a little bit of lightheadedness last night when he was trying to get up. He denies shortness of breath or chest pain at this time. Patient was seen by Dr. Zelaya earlier this morning. Physical Exam Physical Exam: Dressings are clean, dry, and intact. Calves are soft and nontender. Neurovascular intact. Toes are mobile. Hemovac drainage was 175 mL at midnight last night. Nothing has been charted this morning yet. Results & Data ([facility]) Vital Signs (Past 12 Hours) Vital Signs Temp Pulse Pulse Resp BP Pulse Ox O2 Del Method 04/28/22 08:00 36.7 C 81 18 112/70 99 Room Air 04/28/22 04:00 36.5 C 85 20 141/77 H 99 Room Air 04/28/22 00:27 36.4 C L 90 20 125/75 95 Room Air Laboratory Results Laboratory Results WBC 8.12 K/ul (4.8-10.8) 04/28/22 05:39 RBC 2.20 M/uL (4.63-6.08) L 04/28/22 05:39 Hgb 7.3 g/dl (14.0-18.0) L 04/28/22 05:39 Hct 21.8 % (40.1-51.0) L 04/28/22 05:39 MCV 99.1 fL (80.0-100.0) 04/28/22 05:39 MCH 33.2 pg (25.0-34.0) 04/28/22 05:39 MCHC 33.5 g/dL (32.0-36.0) 04/28/22 05:39 RDW Std Deviation 48.2 fL (36.4-46.3) H 04/28/22 05:39 RDW Coeff of Zuly 13.4 % (11.5-14.5) 04/28/22 05:39 Plt Count 163 K/uL (130-400) 04/28/22 05:39 MPV 9.3 fL (9.4-12.4) L 04/28/22 05:39 Sodium 134 mmol/L (136-145) L 04/28/22 05:39 Potassium 4.8 mmol/L (3.5-5.1) 04/28/22 05:39 Chloride 106 mmol/L (98-107) 04/28/22 05:39 Carbon Dioxide 23 mmol/L (21-32) 04/28/22 05:39 Anion Gap 5 (3-11) 04/28/22 05:39 BUN 25 mg/dl (6-23) H 04/28/22 05:39 Creatinine 1.47 mg/dl (0.6-1.4) H 04/28/22 05:39 Est Cr Clr Drug Dosing 54.1 ml/min 04/28/22 05:39 Est GFR ( Amer) 55.6 ml/min 04/28/22 05:39 Est GFR (Non-Af Amer) 48.0 ml/min 04/28/22 05:39 BUN/Creatinine Ratio 17.0 (10-20) 04/28/22 05:39 Glucose 128 mg/dl (70-99(Fasting)) H 04/28/22 05:39 Calcium 7.9 mg/dl (8.5-10.1) L 04/28/22 05:39 Vitamin B12 368 pg/ml (180-914) 04/28/22 05:39 Folate 6.38 ng/ml (>5.38) 04/28/22 05:39 SARS-CoV-2, RNA, NAAT NEGATIVE (NEGATIVE) 04/27/22 10:25 Blood Type O Positive 04/27/22 10:29 Antibody Screen NEGATIVE 04/27/22 10:29 Impressions Knee X-Ray 04/27/22 15:53 XR knee LT 1 or 2V routine CLINICAL HISTORY: Surgical Post Op TECHNIQUE: 2 views of the left knee were obtained. Comparison: None available at the time of this dictation. FINDINGS: Patient is status post total knee arthroplasty with expected postsurgical changes including soft tissue swelling and subcutaneous emphysema. No periarticular lucency or hardware fracture is seen. IMPRESSION: Expected postoperative appearance status post placement of total knee arthroplasty. ACT 112: Negative or not required by law. Electronically signed by: Desmond Garcia M.D. 04/27/2022 4:33 PM
[2022-04-28] MEDS: HYDROmorphone INJ 0.5 MG/0.5 ML SYR IV PRN (10:52)
[2022-04-28 12:06] LABS: Alanine Aminotransferase 36 U/L (7-52); Aspartate Aminotransferase 57 U/L (13-39)
[2022-04-28] MEDS: oxyCODONE HCL IR 5 MG TAB (IMMEDIATE RELEASE) PO PRN (14:45)
--- NOTE | 2022-04-28 20:24 | Hospitalist Progress Note ---
Date of Service April 28, 2022 Assessment & Plan (1) Primary osteoarthritis of left knee: Plan: - POD #0, EBL 5 cc, no complications. - Pain/ABX/IVF/diet/drain management/transfusion needs/activity per primary team - Rescue Narcan ordered for over sedation PRN - VTE prophylaxis per primary service- SCDs in place - CBC and BMP in AM. - Baseline renal function: Cr 1.35 in November - Baseline Hgb: 11.4 in November (2) Alcohol abuse: Plan: - Documented history of alcohol abuse, patient estimates that he drinks one-half bourbon bottle each night. Last drink was 3 days ago he tells me however he rosi d my colleague yesterday he had had alcohol the night before. He has never been hospitalized for withdrawal seizures and to the best of his knowledge has not experienced withdrawal symptoms however unknown last time he's gone a prolonged period without drinking. - AWSS at risk protocol. Thiamine and folate supplementation. Alcohol use disorderI spent over 5 minutes explaining to him that this is the Chief medical problem. There are outpatient treatments available and he needs to speak with his primary care provider about it. We are happy to provide resources and he does understand it is a problem but I am not sure about his motivation. We will readdress it later. Continue AWSS protocol. (3) Hypertension: Plan: - Continue metoprolol as prescribed, as well as lisinopril. I will reduce the dose of lisinopril to 20 mg seeing his blood pressure is only 91 systolic this evening. (4) Shortness of breath: Plan: - As reported history of shortness of breath with exertion, Reviewed most recent cardiology note, they do not feel that his ongoing shortness of breath is cardiac in nature. He was cleared for surgery. Results of testing below. - He is several hours postop and transition to room air, 98%. - Continue Trelegy inhaler daily. 1. Cardiac catheterization November 06, 2016: Essentially normal coronary arteries. Normal intracardiac filling pressures. No pulmonary hypertension. Preserved cardiac output. 2. Echocardiogram November 06, 2016: normal left ventricular systolic function without valvular pathology. 3. Stress echo October 11, 2021: Negative for ischemia at 82% MPHR and 5.5 METS. Resting echo with normal LV systolic function. No significant valvular abnormality. (5) Depression: Plan: - Continue Wellbutrin and Cymbalta. (6) Insomnia: Plan: - Continue Ambien at night. Has been on this for years. (7) Anemia: Plan: - In the setting of hereditary hemochromatosis. Normal AST and ALT Reported history of, baseline Hgb was 11.4 in November, gets phlebotomized every 2 weeks by [facility] hematology w. (8) GERD (gastroesophageal reflux disease): Plan: - Continue PPI, switch Prilosec to hospital formulary Protonix. Plan - Admitted to med/surg post-op by primary team. - SCDs, ASA 81 BID ordered for VTE ppx as ordered by primary team. - Full Code. Assessment and plan discussed with my attending physician, Dr. Monaco. Please refer to his addendum for further clarification and/or changes to plan. Admission and Anticipated Discharge Date Admission Date: April 27, 2022 Subjective seen around 12009 am Denies hallucinations or palpitations. Drinks half a bottle of water bourbon for the last several months and attributes to boredom. He states he mixes it with ice tea and spends the whole day drinking it. He is not able to walk his dog because of his poorly controlled asthma and just sits at home. He has been seeing a assistant professor of sociology in [place] for the last month or so and his asthma symptoms are improving with the new meds. He used to walk 9 miles daily 5 or 6 years ago. Has recently had multiple falls including when walking down to his basement and that is when he decided to get the knee surgery. Denies depressed mood or crying spells Is diagnosed with hemochromatosis and has never been told to avoid alcohol just for that reason. Gets phlebotomized every 2 weeks. This is hereditary hemochromatosis per [facility] few weeks ago when he went there for clearance for this left knee arthroplasty. Has never had treatment for alcohol use disorder. Sees a primary care provider who is not a physician b but does not seem to have regular appointments there. 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 5 x 5 to plantar flexors and elbow flexors Chest clear to auscultation CVS S1-S2 Extremities left knee in Zion wrap, no pretibial edema bilaterally Results & Data Results & Data ([facility]) Vital Signs (Past 12 Hours) Vital Signs Temp Pulse Resp BP Pulse Ox O2 Del Method 04/28/22 16:00 36.7 C 81 18 99/64 L 95 Room Air Laboratory Results Abnormal lab results 04/28/22 04/28/22 04/28/22 Range/Units 05:39 05:39 05:39 RBC 2.20 L (4.63-6.08) M/uL Hgb 7.3 L (14.0-18.0) g/dl Hct 21.8 L (40.1-51.0) % RDW Std Deviation 48.2 H (36.4-46.3) fL MPV 9.3 L (9.4-12.4) fL Sodium 134 L (136-145) mmol/L BUN 25 H (6-23) mg/dl Creatinine 1.47 H (0.6-1.4) mg/dl Glucose 128 H (70-99(Fasting)) mg/dl Calcium 7.9 L (8.5-10.1) mg/dl AST 57 H (13-39) U/L Medications Administered Home Medications Medication Instructions Recorded Confirmed Last Taken bupropion HCl 150 mg tablet,12 hr 150 mg PO QA 01/23/20 04/27/22 04/27/22 07:00 sustained-release duloxetine 60 mg capsule,delayed 60 mg PO QA 01/23/20 04/27/22 04/27/22 07:00 release lisinopril 40 mg tablet 40 mg PO [facility] 01/23/20 04/27/22 04/27/22 07:00 loratadine 10 mg tablet (Claritin) 10 mg PO QAM 01/23/20 04/27/22 04/27/22 07:00 metoprolol succinate 50 mg 50 mg PO QA 01/23/20 04/27/22 04/27/22 07:00 tablet,extended release 24 hr omeprazole 20 mg capsule,delayed 20 mg PO QAM 01/23/20 04/27/22 04/27/22 07:00 release tramadol 50 mg tablet 100 mg PO Q12H PRN Pain 01/23/20 04/27/22 04/26/22 zolpidem 10 mg tablet 10 mg PO HS 01/23/20 04/27/22 04/26/22 23:30 montelukast 10 mg tablet 10 mg PO QAM 08/29/21 04/27/22 04/27/22 07:00 (Singulair) fluticasone fur. 100 mcg-umeclid 1 inh inhalation QAM 02/16/22 04/27/22 04/26/22 07:00 62.5 mcg-vilant 25 mcg inhalat.powder (Trelegy Ellipta) Active Medications Generic Name Dose Route Start Last Admin Trade Name Rudolphq PRN Reason Stop Dose Admin Acetaminophen 1,000 mg 04/27/22 22:00 04/28/22 14:45 Acetaminophen 500 Mg Tab PO 05/27/22 21:59 1,000 mg Q8 ZURI Administration Aspirin 81 mg 04/27/22 21:00 04/28/22 09:12 Aspirin 81 Mg Ectab PO 05/27/22 20:59 81 mg BID ZURI Administration Bupropion HCl 150 mg 04/28/22 09:00 04/28/22 09:13 Bupropion Sr 150 Mg Tabcr PO 05/28/22 08:59 150 mg QAM ZURI Administration Celecoxib 200 mg 04/27/22 21:00 04/28/22 09:12 Celebrex 200 Mg Cap PO 05/27/22 20:59 200 mg BID ZURI Administration Docusate Sodium 100 mg 04/27/22 21:00 04/28/22 09:12 Docusate Sodium 100 Mg Cap PO 05/27/22 20:59 100 mg BID ZURI Administration Duloxetine HCl 60 mg 04/28/22 09:00 04/28/22 09:14 Duloxetine Hcl 60 Mg Cap PO 05/28/22 08:59 60 mg QAM ZURI Administration Fluticasone Furoate 1 puffs 04/28/22 09:00 04/28/22 09:16 Fluticasone Furoate 100mcg 14 Puffs/Inhaler INH 05/28/22 08:59 1 puffs QAM ZURI Administration Folic Acid 1 mg 04/27/22 09:00 04/28/22 09:14 Folic Acid 1 Mg Tab PO 05/27/22 08:59 1 mg QAM ZURI Administration Hydromorphone HCl 0.5 mg 04/27/22 16:47 04/28/22 10:52 Hydromorphone Inj 0.5 Mg/0.5 Ml Syr IV 05/11/22 16:46 0.5 mg Q4H PRN Administration Pain or Pre PT Loratadine 10 mg 04/28/22 09:00 04/28/22 09:14 Loratadine 10 Mg Tab PO 05/28/22 08:59 10 mg QAM ZURI Administration Metoprolol Succinate 50 mg 04/28/22 09:00 04/28/22 09:15 Metoprolol Succ 50mg Ext Rel Tab PO 05/28/22 08:59 50 mg QAM ZURI Administration Montelukast Sodium 10 mg 04/28/22 09:00 04/28/22 09:13 Montelukast Sodium 10 Mg Tablet PO 05/28/22 08:59 10 mg QAM ZURI Administration Multivitamins 1 tab 04/28/22 09:00 04/28/22 09:15 Multivitamin Tab PO 05/28/22 08:59 1 tab QAM ZURI Administration Oxycodone HCl 5 - 10 mg 04/27/22 16:47 04/28/22 14:45 Oxycodone Hcl Ir 5 Mg Tab (Immediate Release) PO 05/11/22 16:46 10 mg Q4H PRN Administration Pain or Pre PT Pantoprazole Sodium 40 mg 04/28/22 09:00 04/28/22 09:15 Pantoprazole 40 Mg Tab PO 05/28/22 08:59 40 mg QAM ZURI Administration Sennosides 17.2 mg 04/27/22 21:00 04/27/22 20:13 Senna 8.6 Mg Tab PO 05/27/22 20:59 17.2 mg HS ZURI Administration Thiamine HCl 100 mg 04/27/22 09:00 04/28/22 09:16 Thiamine Hcl 100 Mg Tab PO 05/27/22 08:59 100 mg QAM ZURI Administration Umeclidinium/Vilanterol 1 puffs 04/28/22 09:00 04/28/22 09:15 Umeclidinium/Vilanterol 62.5/25mcg 7 Puffs/Inhaler INH 05/28/22 08:59 1 puffs QAM ZURI Administration Zolpidem Tartrate 10 mg 04/27/22 21:00 04/27/22 23:27 Zolpidem Tartrate 10 Mg Tab PO 05/27/22 20:59 10 mg HS ZURI Administration PG Care Time/CCT Total # of Minutes Spent Total Time Spent with Patient: Total time spent is greater than 50% in coordination of care (as documented) at patient's floor/unit and/or counseling patient: Coding Level of Care Code 56102 Subseq Hosp Care Lvl 2 Diagnoses Primary osteoarthritis of left knee M17.12 Alcohol abuse F10.10 Hypertension I10 Shortness of breath R06.02 Depression F32.9 Insomnia G47.00 Anemia D64.9 GERD (gastroesophageal reflux disease) K21.9
[2022-04-28] MEDS: SENNA 8.6 MG TAB PO SCH (20:53)
[2022-04-28] MEDS: ZOLPIDEM TARTRATE 10 MG TAB PO SCH (23:24)
[2022-04-29] MEDS: ACETAMINOPHEN 500 MG TAB PO SCH ×3 (06:23→22:55)
[2022-04-29 07:26] LABS: BUN Creatinine Ratio 16.9 (10-20); Calcium 7.8 mg/dl (8.5-10.1); Creatinine Clr Calc Pharmacy 46.2 ml/min; Est GFR (Non-African American) 39.7 ml/min; Potassium 3.9 mmol/L (3.5-5.1)
[2022-04-29 07:32] LABS: Hematocrit (blood only) 21.1 % (40.1-51.0); Hemoglobin 6.9 g/dl (14.0-18.0); Mean Corpuscular Hemoglobin 33.3 pg (25.0-34.0); Mean Corpuscular Hgb Conc 32.7 g/dL (32.0-36.0); Mean Corpuscular Volume 101.9 fL (80.0-100.0); Mean Platelet Volume 9.1 fL (9.4-12.4); Nucleated RBC # (auto) 0.02 K/uL (0-0); Nucleated RBC % (auto) 0.4 %; Platelet Count 155 K/uL (130-400); RDW Coefficient of Variation 14.2 % (11.5-14.5); RDW Standard Deviation 53.1 fL (36.4-46.3); Red Blood Count 2.07 M/uL (4.63-6.08); White Blood Count 4.77 K/ul (4.8-10.8)
[2022-04-29 07:37] LABS: Eosinophils # (auto) 0.06 K/uL (0-0.50); Eosinophils % (auto) 1.3 %; Immature Granulocytes # (auto) 0.02 K/uL (0.00-0.02); Immature Granulocytes % (auto) 0.4 %; Lymphocytes # (auto) 1.17 K/uL (1.2-3.4); Lymphocytes % (auto) 24.5 %; Monocytes % (auto) 14.7 %; Neutrophils # (auto) 2.82 K/uL (1.4-6.5); Neutrophils % (auto) 59.1 %; RBC Morphology Unremarkable
[2022-04-29] MEDS: CeleBREX 200 MG CAP PO SCH (08:11)
[2022-04-29] MEDS: LORATADINE 10 MG TAB PO SCH (08:11)
[2022-04-29] MEDS: MONTELUKAST SODIUM 10 MG TABLET PO SCH (08:11)
[2022-04-29] MEDS: FOLIC ACID 1 MG TAB PO SCH (08:11)
[2022-04-29] MEDS: UMECLIDINIUM/VILANTEROL 62.5/25MCG 7 PUFFS/INHALER INH SCH (08:11)
[2022-04-29] MEDS: MULTIVITAMIN TAB PO SCH (08:11)
[2022-04-29] MEDS: THIAMINE HCL 100 MG TAB PO SCH (08:11)
[2022-04-29] MEDS: METOPROLOL SUCC 50MG EXT REL TAB PO SCH (08:11)
[2022-04-29] MEDS: buPROPion SR 150 MG TABCR PO SCH (08:11)
[2022-04-29] MEDS: lisinopril 20 MG TAB PO SCH (08:11)
[2022-04-29] MEDS: ASPIRIN 81 MG ECTAB PO SCH ×2 (08:11→20:37)
[2022-04-29] MEDS: DOCUSATE SODIUM 100 MG CAP PO SCH ×2 (08:11→20:38)
[2022-04-29] MEDS: PANTOprazole 40 MG TAB PO SCH (08:11)
[2022-04-29] MEDS: DULoxetine HCL 60 MG CAP PO SCH (08:12)
[2022-04-29] MEDS: FLUTICASONE FUROATE 100MCG 14 PUFFS/INHALER INH SCH (08:12)
[2022-04-29] MEDS: oxyCODONE HCL IR 5 MG TAB (IMMEDIATE RELEASE) PO PRN ×2 (08:19→16:56)
[2022-04-29] MEDS ORDERED: lisinopril 40 MG TAB PO SCH (09:00)
[2022-04-29] MEDS ORDERED: ACETAMINOPHEN 325 MG TAB PO ONE (09:26)
[2022-04-29] MEDS ORDERED: SODIUM CHLORIDE 0.9% 250 ML IV PRN (09:26)
--- NOTE | 2022-04-29 09:31 | Orthopedic Progress Note ---
Date of Service April 29, 2022 Assessment & Plan (1) Primary osteoarthritis of left knee: Plan: Postop day 2 status post left total knee arthroplasty PT/OT protocols. Weightbearing as tolerated. DVT prophylaxis-aspirin p.o. twice daily, OWEN Myers. Pain management as written. Acute blood loss anemia/h/o hemochromatosis -hemoglobin 6.9 this morning. Discussed with Hospitalist service. Will transfuse 1 unit of PRBC's today. Creatinine up to 1.7. NSAID's dc'd. (Celebrex) Fluids as per Hospitalist service. Pt encouraged to increase po water intake. DC planning-patient is planning for home health services upon discharge. [facility] set up for Sunday. Admission and Anticipated Discharge Date Admission Date: April 27, 2022 Subjective POD 2 Pt sitting up in bed awake, alert. No complaints this AM. Comfortable. Denies SOB,CP,LH Physical Exam Physical Exam: Dressings are C/D/I. Calves are soft, NT. NV intact. Results & Data ([facility]) Vital Signs (Past 12 Hours) Vital Signs Temp Pulse Pulse Resp BP Pulse Ox O2 Del Method 04/29/22 07:26 36.3 C L 85 16 125/73 96 Room Air 04/28/22 23:34 36.7 C 80 20 119/78 96 Room Air Laboratory Results Laboratory Results WBC 4.77 K/ul (4.8-10.8) L 04/29/22 06:50 RBC 2.07 M/uL (4.63-6.08) L 04/29/22 06:50 Hgb 6.9 g/dl (14.0-18.0) L* 04/29/22 06:50 Hct 21.1 % (40.1-51.0) L 04/29/22 06:50 MCV 101.9 fL (80.0-100.0) H 04/29/22 06:50 MCH 33.3 pg (25.0-34.0) 04/29/22 06:50 MCHC 32.7 g/dL (32.0-36.0) 04/29/22 06:50 RDW Std Deviation 53.1 fL (36.4-46.3) H 04/29/22 06:50 RDW Coeff of Zuly 14.2 % (11.5-14.5) 04/29/22 06:50 Plt Count 155 K/uL (130-400) 04/29/22 06:50 MPV 9.1 fL (9.4-12.4) L 04/29/22 06:50 Immature Gran % (Auto) 0.4 % 04/29/22 06:50 Neut % (Auto) 59.1 % 04/29/22 06:50 Lymph % (Auto) 24.5 % 04/29/22 06:50 Barron % (Auto) 14.7 % 04/29/22 06:50 Eos % (Auto) 1.3 % 04/29/22 06:50 Baso % (Auto) 0.0 % 04/29/22 06:50 Neut # (Auto) 2.82 K/uL (1.4-6.5) 04/29/22 06:50 Lymph # (Auto) 1.17 K/uL (1.2-3.4) L 04/29/22 06:50 Barron # (Auto) 0.70 K/uL (0.24-0.82) 04/29/22 06:50 Eos # (Auto) 0.06 K/uL (0-0.50) 04/29/22 06:50 Baso # (Auto) 0.00 K/uL (0-0.2) 04/29/22 06:50 Immature Gran # (Auto) 0.02 K/uL (0.00-0.02) 04/29/22 06:50 Absolute Nucleated RBC 0.02 K/uL (0-0) H 04/29/22 06:50 Nucleated RBC % (auto) 0.4 % 04/29/22 06:50 RBC Morphology Unremarkable 04/29/22 06:50 Sodium 136 mmol/L (136-145) 04/29/22 06:50 Potassium 3.9 mmol/L (3.5-5.1) 04/29/22 06:50 Chloride 107 mmol/L (98-107) 04/29/22 06:50 Carbon Dioxide 25 mmol/L (21-32) 04/29/22 06:50 Anion Gap 4 (3-11) 04/29/22 06:50 BUN 29 mg/dl (6-23) H 04/29/22 06:50 Creatinine 1.72 mg/dl (0.6-1.4) H 04/29/22 06:50 Est Cr Clr Drug Dosing 46.2 ml/min 04/29/22 06:50 Est GFR ( Amer) 46.0 ml/min 04/29/22 06:50 Est GFR (Non-Af Amer) 39.7 ml/min 04/29/22 06:50 BUN/Creatinine Ratio 16.9 (10-20) 04/29/22 06:50 Glucose 102 mg/dl (70-99(Fasting)) H 04/29/22 06:50 Calcium 7.8 mg/dl (8.5-10.1) L 04/29/22 06:50 AST 57 U/L (13-39) H 04/28/22 05:39 ALT 36 U/L (7-52) 04/28/22 05:39 Vitamin B12 368 pg/ml (180-914) 04/28/22 05:39 Folate 6.38 ng/ml (>5.38) 04/28/22 05:39 SARS-CoV-2, RNA, NAAT NEGATIVE (NEGATIVE) 04/27/22 10:25 Blood Type O Positive 04/27/22 10:29 Antibody Screen NEGATIVE 04/27/22 10:29 Crossmatch See Detail 04/27/22 10:29
--- NOTE | 2022-04-29 10:59 | Hospitalist Progress Note ---
Date of Service April 29, 2022 Assessment & Plan (1) Primary osteoarthritis of left knee: Plan: - POD #0, EBL 5 cc, no complications. - Pain/ABX/IVF/diet/drain management/transfusion needs/activity per primary team - Rescue Narcan ordered for over sedation PRN - VTE prophylaxis per primary service- SCDs in place - CBC and BMP in AM. - Baseline renal function: Cr 1.35 in November - Baseline Hgb: 11.4 in November Is phlebomitised every 2 weeks New onset post-op anemia- 6.9, getting one unit PRBC Requested RN to clean L leg skin- discoloration persists when I wipe off greenish op prep material from skin. Pulse left foot fine, leg and feet warm (2) Alcohol abuse: Plan: - Documented history of alcohol abuse, patient estimates that he drinks one-half bourbon bottle each night. 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 - AWSS at risk protocol. nO SYMPTOMS AT ALL Thiamine and folate supplementation. Alcohol use disorderI spent over 5 minutes explaining to him 04/28 that this is the chief medical problem. There are outpatient treatments available and he needs to speak with his primary care provider about it. We are happy to provide resources and he does understand it is a problem but I am not sure about his motivation. We will readdress it again tomorrow 04/30 . (3) Hypertension: Plan: - Continue metoprolol as prescribed, as well as lisinopril. Reduced lisinopril to 20 mg 04/28 seeing his blood pressure was only 91 systolic that evening. Bp 99 systolic this am (4) Shortness of breath: Plan: with known asthma- sees Dr Wetzel pulmonology 1. Cardiac catheterization November 06, 2016: Essentially normal coronary arteries. Normal intracardiac filling pressures. No pulmonary hypertension. Preserved cardiac output. 2. Echocardiogram November 06, 2016: normal left ventricular systolic function without valvular pathology. 3. Stress echo October 11, 2021: Negative for ischemia at 82% MPHR and 5.5 METS. Resting echo with normal LV systolic function. No significant valvular abnormality. (5) Depression: Plan: - Continue Wellbutrin and Cymbalta. (6) Insomnia: Plan: - Continue Ambien at night. Has been on this for years. (7) Anemia: Plan: -macrocytic from alcohol effect ( AUD)- but check B12, folate as well. In the setting of hereditary hemochromatosis. Now post op blood loss anemia Normal AST and ALT Reported history of, baseline Hgb was 11.4 in November, gets phlebotomized every 2 weeks by [facility] hematology . (8) GERD (gastroesophageal reflux disease): Plan: - Continue PPI, switch Prilosec to hospital formulary Protonix. (9) CKD (chronic kidney disease) stage 2, GFR 60-89 ml/min: Plan: clsoe to baseline BUN/ cr Plan - Admitted to med/surg post-op by primary team. - SCDs, ASA 81 BID ordered for VTE ppx as ordered by primary team. 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 5 x 5 to plantar flexors and elbow flexors Chest clear to auscultation CVS S1-S2 Extremities left knee exposed and covered with ice pack, no pretibial edema bilaterally greenish discoloration L mckenzie and foot inferior to knee that was operated, DP 1plus left, warm feet R leg ruddier Results & Data Results & Data ([facility]) Vital Signs (Past 12 Hours) Vital Signs Temp Pulse Pulse Pulse Resp BP BP 04/29/22 10:45 36.5 C 85 16 97/63 L 04/29/22 10:08 36.5 C 94 H 18 99/65 L 04/29/22 07:26 36.3 C L 85 16 125/73 04/28/22 23:34 36.7 C 80 20 119/78 Pulse Ox O2 Del Method 04/29/22 10:45 95 04/29/22 10:08 96 04/29/22 07:26 96 Room Air 04/28/22 23:34 96 Room Air Laboratory Results Abnormal lab results 04/27/22 04/28/22 04/29/22 Range/Units 10:29 05:39 06:50 WBC 4.77 L (4.8-10.8) K/ul RBC 2.07 L (4.63-6.08) M/uL Hgb 6.9 L* (14.0-18.0) g/dl Hct 21.1 L (40.1-51.0) % MCV 101.9 H (80.0-100.0) fL RDW Std Deviation 53.1 H (36.4-46.3) fL MPV 9.1 L (9.4-12.4) fL Lymph # (Auto) 1.17 L (1.2-3.4) K/uL Absolute Nucleated RBC 0.02 H (0-0) K/uL BUN (6-23) mg/dl Creatinine (0.6-1.4) mg/dl Glucose (70-99(Fasting)) mg/dl Calcium (8.5-10.1) mg/dl AST 57 H (13-39) U/L Crossmatch See Detail 04/29/22 Range/Units 06:50 WBC (4.8-10.8) K/ul RBC (4.63-6.08) M/uL Hgb (14.0-18.0) g/dl Hct (40.1-51.0) % MCV (80.0-100.0) fL RDW Std Deviation (36.4-46.3) fL MPV (9.4-12.4) fL Lymph # (Auto) (1.2-3.4) K/uL Absolute Nucleated RBC (0-0) K/uL BUN 29 H (6-23) mg/dl Creatinine 1.72 H (0.6-1.4) mg/dl Glucose 102 H (70-99(Fasting)) mg/dl Calcium 7.8 L (8.5-10.1) mg/dl AST (13-39) U/L Crossmatch PG Care Time/CCT Total # of Minutes Spent Total Time Spent with Patient: Total time spent is greater than 50% in coordination of care (as documented) at patient's floor/unit and/or counseling patient: Coding Level of Care Code 46899 Subseq Hosp Care Lvl 2 Diagnoses Primary osteoarthritis of left knee M17.12 Alcohol abuse F10.10 Hypertension I10 Shortness of breath R06.02 Depression F32.9 Insomnia G47.00 Anemia D64.9 GERD (gastroesophageal reflux disease) K21.9 CKD (chronic kidney disease) stage 2, GFR 60-89 ml/min N18.2
[2022-04-29] MEDS: SENNA 8.6 MG TAB PO SCH (20:38)
[2022-04-29] MEDS: ZOLPIDEM TARTRATE 10 MG TAB PO SCH (22:55)
[2022-04-30] MEDS: ACETAMINOPHEN 500 MG TAB PO SCH ×3 (05:44→20:49)
[2022-04-30 08:16] LABS: Basophils # (auto) 0.01 K/uL (0-0.2); Basophils % (auto) 0.2 %; Eosinophils # (auto) 0.11 K/uL (0-0.50); Eosinophils % (auto) 2.2 %; Hematocrit (blood only) 26.6 % (40.1-51.0); Hemoglobin 8.9 g/dl (14.0-18.0); Immature Granulocytes # (auto) 0.02 K/uL (0.00-0.02); Immature Granulocytes % (auto) 0.4 %; Lymphocytes # (auto) 0.85 K/uL (1.2-3.4); Lymphocytes % (auto) 16.7 %; Mean Corpuscular Hemoglobin 33.1 pg (25.0-34.0); Mean Corpuscular Hgb Conc 33.5 g/dL (32.0-36.0); Mean Corpuscular Volume 98.9 fL (80.0-100.0); Monocytes # (auto) 0.78 K/uL (0.24-0.82); Monocytes % (auto) 15.3 %; Neutrophils # (auto) 3.33 K/uL (1.4-6.5); Neutrophils % (auto) 65.2 %; Platelet Count 177 K/uL (130-400); RDW Coefficient of Variation 15.9 % (11.5-14.5); RDW Standard Deviation 57.3 fL (36.4-46.3); Red Blood Count 2.69 M/uL (4.63-6.08)
[2022-04-30 08:38] LABS: BUN Creatinine Ratio 18.7 (10-20); Creatinine Clr Calc Pharmacy 64.7 ml/min; Est GFR (Non-African American) 59.5 ml/min; Potassium 4.1 mmol/L (3.5-5.1)
[2022-04-30] MEDS: MONTELUKAST SODIUM 10 MG TABLET PO SCH (08:48)
[2022-04-30] MEDS: DOCUSATE SODIUM 100 MG CAP PO SCH ×2 (08:49→20:50)
[2022-04-30] MEDS: ASPIRIN 81 MG ECTAB PO SCH ×2 (08:49→20:50)
[2022-04-30] MEDS: lisinopril 20 MG TAB PO SCH (08:50)
[2022-04-30] MEDS: METOPROLOL SUCC 50MG EXT REL TAB PO SCH (08:50)
[2022-04-30] MEDS: MULTIVITAMIN TAB PO SCH (08:50)
[2022-04-30] MEDS: PANTOprazole 40 MG TAB PO SCH (08:50)
[2022-04-30] MEDS: THIAMINE HCL 100 MG TAB PO SCH (08:51)
[2022-04-30] MEDS: DULoxetine HCL 60 MG CAP PO SCH (08:51)
[2022-04-30] MEDS: buPROPion SR 150 MG TABCR PO SCH (08:51)
[2022-04-30] MEDS: FOLIC ACID 1 MG TAB PO SCH (08:51)
[2022-04-30] MEDS: FLUTICASONE FUROATE 100MCG 14 PUFFS/INHALER INH SCH (08:52)
[2022-04-30] MEDS: UMECLIDINIUM/VILANTEROL 62.5/25MCG 7 PUFFS/INHALER INH SCH (08:52)
[2022-04-30] MEDS: LORATADINE 10 MG TAB PO SCH (08:52)
[2022-04-30] MEDS: oxyCODONE HCL IR 5 MG TAB (IMMEDIATE RELEASE) PO PRN ×2 (08:57→16:07)
--- NOTE | 2022-04-30 11:58 | Orthopedic Progress Note ---
Date of Service April 30, 2022 Assessment & Plan (1) Primary osteoarthritis of left knee: Plan: Postop day 3 status post left total knee arthroplasty PT/OT protocols. Weightbearing as tolerated. DVT prophylaxis-aspirin p.o. twice daily, SCDs, OWEN meza. Pain management as written. Hemoglobin significantly improved after transfusion yesterday. Creatinine is now to a normal level. DC planning-we discussed home today since home health to be at his house tomorr ow and the significant improvement in his labs. However, I spoke with physical therapy and since the patient has so many steps at home, she feels it would be in the patient's best interest to stay another day so he can participate in physical therapy and steps tomorrow. If he does well with the steps, he will be able to be discharged home tomorrow. Admission and Anticipated Discharge Date Admission Date: April 29, 2022 Subjective Doing well today. States he just worked with PT and had some weakness in his left quadriceps. States the pain is controlled with current oral medications. Physical Exam Constitutional: WD/WN, vitals as above no acute distress Musculoskeletal: Knee: + surgical incision (Left knee: BRAULIO dressing intact and functioning. C/D/I); no deformity, no skin erythema, no ecchymosis and no surgical drain present Skin: no rashes, warm and dry Trauma: no evidence of skin trauma Neurologic: normal touch/pain/proprioception Psychiatric: A+Ox3, euthymic affect Speech: normal rate/rhythm/volume of speech Results & Data ([facility]) Vital Signs (Past 12 Hours) Vital Signs Temp Pulse Resp BP Pulse Ox O2 Del Method 04/30/22 08:47 71 153/81 H 04/30/22 07:33 36.6 C 81 16 118/70 96 Room Air Laboratory Results Laboratory Tests 04/30/22 04/30/22 08:00 08:00 Hgb 8.9 L Hct 26.6 L BUN 23 Creatinine 1.23 D
[2022-04-30] MEDS ORDERED: SODIUM CHLORIDE 0.65% NA SOLN 45 ML (OCEAN) ONE (16:13)
[2022-04-30] MEDS: SENNA 8.6 MG TAB PO SCH (20:48)
--- NOTE | 2022-04-30 21:34 | Hospitalist Progress Note ---
Date of Service April 30, 2022 Assessment & Plan (1) Primary osteoarthritis of left knee: Plan: - POD #0, EBL 5 cc, no complications. - Pain/ABX/IVF/diet/drain management/transfusion needs/activity per primary team - Rescue Narcan ordered for over sedation PRN - VTE prophylaxis per primary service- SCDs in place - CBC and BMP in AM. - Baseline renal function: Cr 1.35 in November - Baseline Hgb: 11.4 in November Is phlebomitised every 2 weeks New onset post-op anemia- 6.9, getting one unit PRBC Requested RN to clean L leg skin- discoloration persists when I wipe off greenish op prep material from skin. Pulse left foot fine, leg and feet warm (2) Alcohol abuse: Plan: - Documented history of alcohol abuse, patient estimates that he drinks one-half bourbon bottle each night. Last drink was [address] He has never been hospitalized for withdrawal seizures and to the best of his knowledge has not experienced withdrawal symptoms however unknown last time he's gone a prolonged period without drinking. - AWSS at risk protocol. nO SYMPTOMS AT ALL Thiamine and folate supplementation. Alcohol use disorderthe patient says he will cut down from half a bottle of bourbon at discharge. Discharge anticipated tomorrow. Asked him to discuss medication prescriptions for alcohol use disorder. There are many which are very effective. (3) Hypertension: Plan: - Continue metoprolol as prescribed, as well as lisinopril. Reduced lisinopril to 20 mg 04/28 seeing his blood pressure was only 91 systolic that evening. Bp has trended up but he is also in pain. Would will keep 20 mg at discharge (4) Shortness of breath: Plan: with known asthma- sees Dr Wetzel pulmonology 1. Cardiac catheterization November 06, 2016: Essentially normal coronary arteries. Normal intracardiac filling pressures. No pulmonary hypertension. Preserved cardiac output. 2. Echocardiogram November 06, 2016: normal left ventricular systolic function without valvular pathology. 3. Stress echo October 11, 2021: Negative for ischemia at 82% MPHR and 5.5 METS. Resting echo with normal LV systolic function. No significant valvular abnormality. (5) Depression: Plan: - Continue Wellbutrin and Cymbalta. (6) Insomnia: Plan: - Continue Ambien at night. Has been on this for years. (7) Anemia: Plan: -macrocytic from alcohol effect ( AUD)- low normal B12 368, folate normal In the setting of hereditary hemochromatosis. Normal AST and ALT -gets phlebotomized every 2 weeks by [facility] hematology . (8) GERD (gastroesophageal reflux disease): Plan: - Continue PPI, switch Prilosec to hospital formulary Protonix. (9) CKD (chronic kidney disease) stage 2, GFR 60-89 ml/min: Plan: Stable and creatinine is lower today. Plan - Admitted to med/surg post-op by primary team. - SCDs, ASA 81 BID ordered for VTE ppx as ordered by primary team. Hemoglobin has risen to gram post blood transfusion Medicine will sign off at this time. Anticipated discharge home tomorrow 05/02 Follow-up closely with PCP- in 7-10 days. Keep hematology appointmenthas hereditary hemochromatosis not affected liver, but alcohol abstention advised. Asked him to discuss medication prescriptions for alcohol use disorder w PCP. There are many which are very effective. Appears motivated to cut down significantly. Admission and Anticipated Discharge Date Admission Date: April 29, 2022 Subjective Seen around 1145 today. Earlier was ambulating with a walker with physical therapy in the halls. 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 no tremor of extended arms 5 x 5 to plantar flexors and elbow flexors Chest clear to auscultation CVS S1-S2 Extremities left knee exposed and covered with ice pack, no pretibial edema bilaterally greenish discoloration L mckenzie and foot inferior to knee that was operated, Results & Data Results & Data ([facility]) Vital Signs (Past 12 Hours) Vital Signs Temp Pulse Resp BP Pulse Ox O2 Del Method 04/30/22 15:17 36.8 C 84 18 142/83 H 100 Room Air PG Care Time/CCT Total # of Minutes Spent Total Time Spent with Patient: Total time spent is greater than 50% in coordination of care (as documented) at patient's floor/unit and/or counseling patient: Coding Level of Care Code 38150 Subseq Hosp Care Lvl 2 Diagnoses Primary osteoarthritis of left knee M17.12 Alcohol abuse F10.10 Hypertension I10 Shortness of breath R06.02 Depression F32.9 Insomnia G47.00 Anemia D64.9 GERD (gastroesophageal reflux disease) K21.9 CKD (chronic kidney disease) stage 2, GFR 60-89 ml/min N18.2
[2022-04-30] MEDS: ZOLPIDEM TARTRATE 10 MG TAB PO SCH (23:04)
[2022-05-01] MEDS: ACETAMINOPHEN 500 MG TAB PO SCH ×2 (06:16→14:42)
[2022-05-01] MEDS: METOPROLOL SUCC 50MG EXT REL TAB PO SCH (09:17)
[2022-05-01] MEDS: THIAMINE HCL 100 MG TAB PO SCH (09:17)
[2022-05-01] MEDS: FOLIC ACID 1 MG TAB PO SCH (09:17)
[2022-05-01] MEDS: lisinopril 20 MG TAB PO SCH (09:17)
[2022-05-01] MEDS: LORATADINE 10 MG TAB PO SCH (09:18)
[2022-05-01] MEDS: DULoxetine HCL 60 MG CAP PO SCH (09:18)
[2022-05-01] MEDS: MULTIVITAMIN TAB PO SCH (09:18)
[2022-05-01] MEDS: buPROPion SR 150 MG TABCR PO SCH (09:18)
[2022-05-01] MEDS: FLUTICASONE FUROATE 100MCG 14 PUFFS/INHALER INH SCH (09:18)
[2022-05-01] MEDS: DOCUSATE SODIUM 100 MG CAP PO SCH (09:18)
[2022-05-01] MEDS: UMECLIDINIUM/VILANTEROL 62.5/25MCG 7 PUFFS/INHALER INH SCH (09:18)
[2022-05-01] MEDS: ASPIRIN 81 MG ECTAB PO SCH (09:18)
[2022-05-01] MEDS: MONTELUKAST SODIUM 10 MG TABLET PO SCH (09:18)
[2022-05-01] MEDS: PANTOprazole 40 MG TAB PO SCH (09:18)
[2022-05-01] MEDS: HYDROmorphone INJ 0.5 MG/0.5 ML SYR IV PRN ×2 (09:20→15:52)
--- NOTE | 2022-05-01 10:05 | Orthopedic Progress Note ---
Date of Service May 01, 2022 Assessment & Plan (1) Primary osteoarthritis of left knee: Plan: Postop day #4 status post left TKA PT/OTif steps go well today, he will be able to be discharged. DVT prophylaxisTED stockings, aspirin 81 mg twice daily. Pain controloral oxycodone. Discharge planningplan for home with home health today if PT goes well. Admission and Anticipated Discharge Date Admission Date: April 29, 2022 Subjective Doing well today. Pain is controlled within the left knee. Still having some thigh pain and lower leg pain. States he was able to ambulate in the halls every hour yesterday. He is getting ready to do steps with PT at this time. Physical Exam Constitutional: WD/WN, vitals as above no acute distress Musculoskeletal: Knee: + surgical incision (BRAULIO dressing in place and functioning. C/D/I); knee normal to inspection, no deformity, no skin erythema, no ecchymosis and no surgical drain present Skin: no rashes, warm and dry Trauma: no evidence of skin trauma Neurologic: normal touch/pain/proprioception Psychiatric: A+Ox3, euthymic affect Speech: normal rate/rhythm/volume of speech Results & Data ([facility]) Vital Signs (Past 12 Hours) Vital Signs Temp Pulse Pulse Resp BP Pulse Ox O2 Del Method 05/01/22 08:42 36.9 C 89 18 153/83 H 99 Room Air 04/30/22 22:52 37.5 C 85 20 185/92 H 96 Room Air
--- NOTE | 2022-05-01 16:55 | Discharge Summary ---
Date of Service May 01, 2022 Admission HPI Per Admitting Provider 71yo male with PMHx significant for HTN, asthma, LOLY, elevated LFTs who presents with ongoing left knee pain. Pain is interfering with his daily activities. He has failed conservative measures and would like to proceed with surgical intervention. Patient denies headaches, sweats, fevers, chills, double vision, blurred vision, cough, sore throat, dysphagia, chest pain, sob, wheezing, n/v/d/c, numbness, tingling, fatigue, urinary symptoms, mood disorders. ROS positive for left knee pain and stiffness. Admission Exam Per Admitting Provider Constitutional: well developed and well nourished; no acute distress Eyes: PERRL, conjunctivae normal, anicteric sclerae ENMT: external ear and nose normal, oropharynx normal Neck: trachea midline, no thyromegaly Respiratory: normal respiratory effort, lungs clear to auscultation Cardiovascular: RRR, no murmur, no edema Musculoskeletal: Alessio knee: Varus alignment. Moderate effusion. Tendenress medial and lateral joint line. Positive dea's. Guarded Elmer's. Stable to valgus and varus stress. ROM 0-120 degrees. Skin: no rashes, warm and dry Neurologic: patellar DTR's 2+ bilat, sensation intact Psychiatric: A+Ox3, euthymic affect Principal Diagnosis Left knee osteoarthritis Discharge Exam Constitutional: WD/WN, vitals as above no acute distress Musculoskeletal: Knee: + surgical incision (BRAULIO dressing in place and functioning. C/D/I); knee normal to inspection, no deformity, no skin erythema, no ecchymosis and no surgical drain present Skin: no rashes, warm and dry Trauma: no evidence of skin trauma Neurologic: normal touch/pain/proprioception Psychiatric: A+Ox3, euthymic affect Speech: normal rate/rhythm/volume of speech Discharge Data Allergies Allergy/AdvReac Type Severity Reaction Status Date / Time No Known Allergies Allergy Verified 04/27/22 10:27 Consultations 03/17/22 17:13 Consult Hospitalist Routine Procedures Performed Operation Date: 01/26/22 15:10 <No data on this case meets the specified criteria> Operation Date: 04/27/22 12:20 Actual Procedures p Left Total Knee Arthroplasty(Left) - Arian Zelaya MD Ordered Studies 03/22/22 05:00 US - OR guided needle placemen Routine Hospital Course (1) Primary osteoarthritis of left knee: Postop day #4 status post left TKA PT/OTif steps go well today, he will be able to be discharged. DVT prophylaxisTED stockings, aspirin 81 mg twice daily. Pain controloral oxycodone. Discharge planningplan for home with home health today if PT goes well. Postop day 3 status post left total knee arthroplasty PT/OT protocols. Weightbearing as tolerated. DVT prophylaxis-aspirin p.o. twice daily, OWEN [place] hose. Pain management as written. Hemoglobin significantly improved after transfusion yesterday. Creatinine is now to a normal level. DC planning-we discussed home today since home health to be at his house tomorrow and the significant improvement in his labs. However, I spoke with physical therapy and since the patient has so many steps at home, she feels it would be in the patient's best interest to stay another day so he can participate in physical therapy and steps tomorrow. If he does well with the steps, he will be able to be discharged home tomorrow. Postop day 2 status post left total knee arthroplasty PT/OT protocols. Weightbearing as tolerated. DVT prophylaxis-aspirin p.o. twice daily, SCDs OWEN hose. Pain management as written. Acute blood loss anemia/h/o hemochromatosis -hemoglobin 6.9 this morning. Discussed with Hospitalist service. Will transfuse 1 unit of PRBC's today. Creatinine up to 1.7. NSAID's dc'd. (Celebrex) Fluids as per Hospitalist service. Pt encouraged to increase po water intake. DC planning-patient is planning for home health services upon discharge. [facility] Sunday. Postop day 1 status post left total knee arthroplasty PT/OT protocols. Weightbearing as tolerated. DVT prophylaxis-aspirin p.o. twice daily, SCDs OWEN hose. Pain management as written. Acute blood loss anemia-hemoglobin 7.3 this morning. We will see how he progresses with his physical therapy. Creatinine slightly increased this morning as well. We will continue to follow. Plan for repeat labs tomorrow morning. Appreciate hospitalist input. DC planning-patient is planning for home health services upon discharge. Lab Results 04/27/22 04/27/22 04/28/22 Range/Units 10:25 10:29 05:39 WBC 8.12 (4.8-10.8) K/ul RBC 2.20 L (4.63-6.08) M/uL Hgb 7.3 L (14.0-18.0) g/dl Hct 21.8 L (40.1-51.0) % MCV 99.1 (80.0-100.0) fL MCH 33.2 (25.0-34.0) pg MCHC 33.5 (32.0-36.0) g/dL RDW Std Deviation 48.2 H (36.4-46.3) fL RDW Coeff of Zuly 13.4 (11.5-14.5) % Plt Count 163 (130-400) K/uL MPV 9.3 L (9.4-12.4) fL Immature Gran % (Auto) % Neut % (Auto) % Lymph % (Auto) % [place] % (Auto) % Eos % (Auto) % Baso % (Auto) % Neut # (Auto) (1.4-6.5) K/uL Lymph # (Auto) (1.2-3.4) K/uL [place] # (Auto) (0.24-0.82) K/uL Eos # (Auto) (0-0.50) K/uL Baso # (Auto) (0-0.2) K/uL Immature Gran # (Auto) (0.00-0.02) K/uL Absolute Nucleated RBC (0-0) K/uL Nucleated RBC % (auto) % RBC Morphology Sodium (136-145) mmol/L Potassium (3.5-5.1) mmol/L Chloride (98-107) mmol/L Carbon Dioxide (21-32) mmol/L Anion Gap (3-11) BUN (6-23) mg/dl Creatinine (0.6-1.4) mg/dl Est Cr Clr Drug Dosing ml/min Est GFR ( Amer) ml/min Est GFR (Non-Af Amer) ml/min BUN/Creatinine Ratio (10-20) Glucose (70-99(Fasting)) mg/dl Calcium (8.5-10.1) mg/dl AST (13-39) U/L ALT (7-52) U/L Vitamin B12 (180-914) pg/ml Folate (>5.38) ng/ml Hepatitis C Ab (EIA) (NON-REACTIVE) Hep C Ab Signal/Cutoff (<1.00) SARS-CoV-2, RNA, NAAT NEGATIVE (NEGATIVE) Blood Type O Positive Antibody Screen NEGATIVE Crossmatch See Detail 04/28/22 04/28/22 04/28/22 Range/Units 05:39 05:39 05:39 WBC (4.8-10.8) K/ul RBC (4.63-6.08) M/uL Hgb (14.0-18.0) g/dl Hct (40.1-51.0) % MCV (80.0-100.0) fL MCH (25.0-34.0) pg MCHC (32.0-36.0) g/dL RDW Std Deviation (36.4-46.3) fL RDW Coeff of Zuly (11.5-14.5) % Plt Count (130-400) K/uL MPV (9.4-12.4) fL Immature Gran % (Auto) % Neut % (Auto) % Lymph % (Auto) % [place] % (Auto) % Eos % (Auto) % Baso % (Auto) % Neut # (Auto) (1.4-6.5) K/uL Lymph # (Auto) (1.2-3.4) K/uL [place] # (Auto) (0.24-0.82) K/uL Eos # (Auto) (0-0.50) K/uL Baso # (Auto) (0-0.2) K/uL Immature Gran # (Auto) (0.00-0.02) K/uL Absolute Nucleated RBC (0-0) K/uL Nucleated RBC % (auto) % RBC Morphology Sodium 134 L (136-145) mmol/L Potassium 4.8 (3.5-5.1) mmol/L Chloride 106 (98-107) mmol/L Carbon Dioxide 23 (21-32) mmol/L Anion Gap 5 (3-11) BUN 25 H (6-23) mg/dl Creatinine 1.47 H (0.6-1.4) mg/dl Est Cr Clr Drug Dosing 54.1 ml/min Est GFR ( Amer) 55.6 ml/min Est GFR (Non-Af Amer) 48.0 ml/min BUN/Creatinine Ratio 17.0 (10-20) Glucose 128 H (70-99(Fasting)) mg/dl Calcium 7.9 L (8.5-10.1) mg/dl AST 57 H (13-39) U/L ALT 36 (7-52) U/L Vitamin B12 368 (180-914) pg/ml Folate 6.38 (>5.38) ng/ml Hepatitis C Ab (EIA) (NON-REACTIVE) Hep C Ab Signal/Cutoff (<1.00) SARS-CoV-2, RNA, NAAT (NEGATIVE) Blood Type Antibody Screen Crossmatch 04/28/22 04/29/22 04/29/22 Range/Units 05:39 06:50 06:50 WBC 4.77 L (4.8-10.8) K/ul RBC 2.07 L (4.63-6.08) M/uL Hgb 6.9 L* (14.0-18.0) g/dl Hct 21.1 L (40.1-51.0) % MCV 101.9 H (80.0-100.0) fL MCH 33.3 (25.0-34.0) pg MCHC 32.7 (32.0-36.0) g/dL RDW Std Deviation 53.1 H (36.4-46.3) fL RDW Coeff of Zuly 14.2 (11.5-14.5) % Plt Count 155 (130-400) K/uL MPV 9.1 L (9.4-12.4) fL Immature Gran % (Auto) 0.4 % Neut % (Auto) 59.1 % Lymph % (Auto) 24.5 % [place] % (Auto) 14.7 % Eos % (Auto) 1.3 % Baso % (Auto) 0.0 % Neut # (Auto) 2.82 (1.4-6.5) K/uL Lymph # (Auto) 1.17 L (1.2-3.4) K/uL [place] # (Auto) 0.70 (0.24-0.82) K/uL Eos # (Auto) 0.06 (0-0.50) K/uL Baso # (Auto) 0.00 (0-0.2) K/uL Immature Gran # (Auto) 0.02 (0.00-0.02) K/uL Absolute Nucleated RBC 0.02 H (0-0) K/uL Nucleated RBC % (auto) 0.4 % RBC Morphology Unremarkable Sodium 136 (136-145) mmol/L Potassium 3.9 (3.5-5.1) mmol/L Chloride 107 (98-107) mmol/L Carbon Dioxide 25 (21-32) mmol/L Anion Gap 4 (3-11) BUN 29 H (6-23) mg/dl Creatinine 1.72 H (0.6-1.4) mg/dl Est Cr Clr Drug Dosing 46.2 ml/min Est GFR ( Amer) 46.0 ml/min Est GFR (Non-Af Amer) 39.7 ml/min BUN/Creatinine Ratio 16.9 (10-20) Glucose 102 H (70-99(Fasting)) mg/dl Calcium 7.8 L (8.5-10.1) mg/dl AST (13-39) U/L ALT (7-52) U/L Vitamin B12 (180-914) pg/ml Folate (>5.38) ng/ml Hepatitis C Ab (EIA) NON-REACTIVE (NON-REACTIVE) Hep C Ab Signal/Cutoff 0.02 (<1.00) SARS-CoV-2, RNA, NAAT (NEGATIVE) Blood Type Antibody Screen Crossmatch 04/30/22 04/30/22 04/30/22 Range/Units 08:00 08:00 08:00 WBC 5.10 (4.8-10.8) K/ul RBC 2.69 L (4.63-6.08) M/uL Hgb 8.9 L (14.0-18.0) g/dl Hct 26.6 L (40.1-51.0) % MCV 98.9 (80.0-100.0) fL MCH 33.1 (25.0-34.0) pg MCHC 33.5 (32.0-36.0) g/dL RDW Std Deviation 57.3 H (36.4-46.3) fL RDW Coeff of Zuly 15.9 H (11.5-14.5) % Plt Count 177 (130-400) K/uL MPV 9.0 L (9.4-12.4) fL Immature Gran % (Auto) 0.4 % Neut % (Auto) 65.2 % Lymph % (Auto) 16.7 % [place] % (Auto) 15.3 % Eos % (Auto) 2.2 % Baso % (Auto) 0.2 % Neut # (Auto) 3.33 (1.4-6.5) K/uL Lymph # (Auto) 0.85 L (1.2-3.4) K/uL [place] # (Auto) 0.78 (0.24-0.82) K/uL Eos # (Auto) 0.11 (0-0.50) K/uL Baso # (Auto) 0.01 (0-0.2) K/uL Immature Gran # (Auto) 0.02 (0.00-0.02) K/uL Absolute Nucleated RBC (0-0) K/uL Nucleated RBC % (auto) % RBC Morphology Sodium 137 (136-145) mmol/L Potassium 4.1 (3.5-5.1) mmol/L Chloride 107 (98-107) mmol/L Carbon Dioxide 24 (21-32) mmol/L Anion Gap 6 (3-11) BUN 23 (6-23) mg/dl Creatinine 1.23 D (0.6-1.4) mg/dl Est Cr Clr Drug Dosing 64.7 ml/min Est GFR ( Amer) 69.0 ml/min Est GFR (Non-Af Amer) 59.5 ml/min BUN/Creatinine Ratio 18.7 (10-20) Glucose 97 (70-99(Fasting)) mg/dl Calcium 8.0 L (8.5-10.1) mg/dl AST (13-39) U/L ALT (7-52) U/L Vitamin B12 (180-914) pg/ml Folate 10.57 (>5.38) ng/ml Hepatitis C Ab (EIA) (NON-REACTIVE) Hep C Ab Signal/Cutoff (<1.00) SARS-CoV-2, RNA, NAAT (NEGATIVE) Blood Type Antibody Screen Crossmatch Total Time Total Time Spent Total Time Spent (In Minutes): 20 Discharge Plan Discharge Items Patient Disposition: Home - Home Health Services Reason For Visit: Left Knee Osteoarthritis Discharge Diagnosis: Left knee osteoarthritis Activity: Per Instructions section Weightbearing: Full weightbearing Non-emergency contact: Surgeon Call non-emergency contact if: your pain is not controlled, your pain is worsening and your temperature is above 101 Follow-up/Referrals: Jerrica Nguyen PA-C [Primary Care Provider] - 05/09/22 1:00 pm Diet: Regular Addtl Attending Provider Instructions: ACTIVITY RECOMMENDATIONS: SELF CARE INSTRUCTIONS AFTER TOTAL KNEE REPLACEMENT A. You may need to continue a physical therapy program after discharge from the hospital. There are several options available to you. Your doctor will assist you in selecting the best one for you. 1. An out-patient facility 2 to 3 times a week for therapy or home therapy. 2. Continue working on all exercises taught to you in the hospital. Your goals should be to increase bending of your knee to 90 degrees and beyond and to fully straighten your knee. B. You may progress at your own pace from walking with a walker or crutches to a cane; then to no assistive devices. C. Make walking a part of your daily routine. Be up as much as comfortable with rest periods throughout the day. Rest with leg elevation is very important. Use the ice wrap frequently for the first 3-4 weeks. D. There are no restrictions on activities. You may ride in a car, shop, participate in junior account manager and all social activities. E. Wear the long elastic stockings (OWEN hose) 20 hours a day for 2 weeks after surgery. They can be removed several times a day for laundering and for a bath. F. You may shower, no tub baths until cleared by your doctor. SPECIAL CARE INSTRUCTIONS: VERY IMPORTANT TO READ AND REVIEW A. There are a few signs you need to watch for after you are home. Call [facility] [place] if you notice any of the followin. Increased severe knee pain. Some pain is expected especially when you exercise. 2. Increased swelling in your leg or knee; pain or swelling of the calf muscle in either lower leg. 3. Any fluid drainage from the incision. 4. Shortness of breath or chest pain. B. Please call [facility] at if you have any concerns or questions about your operation or recovery. The doctor or his nurse will return your call promptly. C. You must take antibiotics before dental work, bladder, bowel or other surgery. Your doctor will provide you with a permanent care to carry describing this precaution. IMPORTANT: * REMEMBER TO TAKE ASPIRIN, 81 MG, TWICE DAILY FOR 4 WEEKS UNLESS OTHERWISE DIRECTED. THIS IS YOUR BLOOD THINNER. * HIGH RISK PATIENTS MAY BE PRESCRIBED A STRONGER BLOOD THINNER. THIS WILL BE PROVIDED AT DISCHARGE. * CALL IF INCREASED PAIN, REDNESS, DRAINAGE OR FEVER GREATER THAT 101. * WEAR OWEN HOSE 20 HOURS PER DAY FOR 2 WEEKS. This is a large suction dressing covering your incision. This will help pull any excess drainage from the wound and allow your incision to heal properly. You may shower with this if you can keep the unit outside of the shower. If any bleeding or leakage is noted please call your doctor's office. This will remain on your incision for 7 days and then should be removed. This can be done yourself or by the home nursing staff if applicable. The entire unit is disposable once removed. Once removed, keep incision clean and dry. If redness or drainage is noted, please call your surgeon. IF INCISION IS LEAKING THROUGH DRESSING, CALL THE OFFICE . FOLLOW UP VISIT: If appointment is not already scheduled: Please call [facility] [place] to make a follow-up appointment for 2 weeks after your surgery at . Pending Studies at Discharge: No Stand-Alone Forms: My [facility] [employer], Smoking Cessation Medications and DC Order Prescriptions: New acetaminophen [Tylenol Extra Strength] 500 mg Tablet 1,000 mg PO Q8 Qty: 100 0RF aspirin 81 mg Tablet,Delayed Release (Dr/Ec) 81 mg PO BID Qty: 60 0RF oxycodone 5 mg Tablet 5 mg PO Q4H PRN (Reason: pain) Qty: 20 0RF Continued montelukast [Singulair] 10 mg tablet 10 mg PO QAM bupropion HCl 150 mg tablet sustained-release 12 hr 150 mg PO QAM metoprolol succinate 50 mg tablet extended release 24 hr 50 mg PO QAM omeprazole 20 mg capsule,delayed release(DR/EC) 20 mg PO QAM zolpidem 10 mg tablet 10 mg PO HS lisinopril 40 mg tablet 40 mg PO QAM loratadine [Claritin] 10 mg Tablet 10 mg PO QAM duloxetine 60 mg capsule,delayed release(DR/EC) 60 mg PO QAM Trelegy Ellipta 100-62.5-25 mcg Blister With Device 1 inh INHALATION QAM Discontinued tramadol 50 mg tablet 100 mg PO Q12H PRN (Reason: Pain) Discharge Orders: Discharge Order (Routine); Ordered 05/01/22 Ordered By: Myles Baca Admission Data Admit Date/Time: 04/29/22 13:27 Attending Provider: Arian Zelaya Admit Provider: Arian Zelaya Primary Care Provider: Jerrica Nguyen Other Providers: Luis Nur Navneet ; [facility] Other Interventions: Discharge Summary Assessment (RN) Last Done: 05/01/22 13:18
== END 2022-05-01 16:17 | disposition home health service (06) | DRG 470 ==
LOC: 3N 10:07 → ASU 10:07